=== PATIENT | male | born 1960 | race Caucasian/White ===

== ENCOUNTER 2019-06-02 14:09 | Emergency (ER) | payer MEDICARE, SELFPAY ==
[2019-06-02 14:16] VITALS: BP 142/99; PULSE 81; RESP 16; TEMP 36.7; O2SAT 96; BMI 45.0
--- NOTE | 2019-06-02 14:28 | ED_ITS ---
Entered by Raven Carrillo, acting as scribe for HPI - Abdominal Pain General: Chief Complaint: Abdominal Pain Stated Complaint: abd pain Time Seen by Provider: 06/02/19 14:25 Source: patient and family Mode of arrival: wheelchair Limitations: no limitations History of Present Illness: HPI narrative: 59 yo Male presents to ED with complaint of groin pain. Pt states that he has seen Dr. Luo and they found a nodule. Pt states that he has been checked for hernia and epididymitis. Pt states that he has been in herE 2 other times for this, 4 times altogether. Pt states that the pain is moderate. Pt states that he is on steroids right now. Pt's states that the patient's pain started on and since then the patient is having decreased urine output and discomfort during urination. MD elicited complaint: other (groin pain) Onset (ago): day(s) Pain Consistency: constant Location: Groin Pain scale (0-10): 10 Quality: sharp Radiation: none Migration to: no migration Exacerbating factors: movement Relieving factors: nothing Associated Symptoms: Reports no associated symptoms and dysuria; Denies chills, coffee ground emesis, constipation, GI cramping, diarrhea, fever(s), hematochezia, hematuria, hematemesis, melena, nausea, syncope and vomiting Review of Systems General: Reports: other (negative unless marked) Const: Denies: fever, chills, body aches, fatigue, malaise or diaphoresis Eyes: Denies: change in vision or blurry vision ENMT: Denies: throat pain, painful swallowing, hoarseness, ear pain, ear discharge, Change in hearing or nasal discharge Card: Denies: chest pain, palpitations, irregular heart rhythm, syncope, pre- syncope, shortness of breath on exertion or shortness of breath when lying down Resp: Denies: shortness of breath, productive cough, non-productive cough, wheezing, coughing up blood or chest congestion GI: Denies: abdominal pain, nausea, vomiting, vomiting blood, coffee grounds in vomit, diarrhea, constipation, cramping, blood in stool or black tarry stool : Reports: difficulty urinating, painful urination, urinary frequency, urinary urgency and testicular pain; Denies: flank pain, decreased urine ouput, urinary incontinence or blood in urine Musc: Denies: neck pain, back pain, extremity pain, extremity swelling, joint pain, joint swelling, joint warmth or joint stiffness Skin/Breast: Denies: rash, skin tenderness or yellow skin Neuro: Denies: headache, numbness in extremities, weakness in extremities, changes in sensation, lack of coordination, difficulty walking, dizziness, vertigo or confusion Endo: Denies: excessive thirst, tired all the time, cold intolerance, excessive sweating, flushing or hot flashes Chidi/Lymph: Denies: easy bruising, easy bleeding, petechiae or enlarged lymph nodes All/Imm: Denies: hives, throat swelling, tongue swelling, facial swelling or acute wheezing PFSH ED PFSH: Statuses (acute, chronic, etc) shown below reflect problem list status as previously entered and may not be historically accurate Medical History (Updated 06/02/19 @ 16:52 by Rachel Heredia) Attention-deficit hyperactivity disorder, combined type (Acute) Major depressive disorder, recurrent, in full remission (Acute) Narcissistic personality disorder (Acute) Post traumatic stress disorder (Acute) Social History Smoking and tobacco status: current some day smoker Physical Exam Const: COMMON NORMALS: no apparent distress, oriented x3, no limitations, healthy appearing and well nourished EXAM LIMITATIONS: no altered mental status GENERAL APPEARANCE: cooperative, well kempt and well developed ORIENTATION/CONSCIOUSNESS: Yes awake HENMT: COMMON NORMALS: normocephalic, head/scalp atraumatic, hearing grossly normal bilaterally, external ears normal, EAC's normal, external nose normal and moist oral mucous membranes HEAD & SCALP: normal to inspection, normocephalic and atraumatic FACE & SINUS: normal facial exam and face symmetric NOSE: external nose normal and nares normal EXTERNAL EAR: Yes external ears normal EXTERNAL AUDITORY CANAL: EAC's normal MOUTH: oral and palatal mucosa normal and tongue normal Eye: COMMON NORMALS: PERRL, EOMs intact bilaterally, conjunctivae normal and no scleral icterus GENERAL EYE: normal appearance of both eyes and normal light reflex CONJUNCTIVA: Yes conjunctivae normal SCLERA: sclerae normal CORNEA: Yes corneas normal PUPIL: Yes PERRL DIRECT OPHTHALMOSCOPY: Yes normal light reflex Neck/C-Spine: COMMON NORMALS: full ROM, no lymphadenopathy, supple, no meningeal signs and no JVD GENERAL: Yes normal visual inspection and Yes trachea midline CERVICAL SPINE: Yes cervical ROM normal Chest: COMMONS NORMALS: inspection of chest normal and palpation of chest normal Resp: COMMON NORMALS: normal respiratory effort, no retractions, no use of accessory muscles and clear to auscultation bilaterally EFFORT & INSPECTION: Yes able to speak in complete sentences AUSCULTATION: clear to auscultation bilaterally Cardio: COMMON NORMALS: no JVD, regular rate, regular rhythm, S1 normal heart sound, S2 normal heart sound, no gallops, no clicks, no murmurs and no rub JUGULAR VENOUS DISTENTION: no JVD RATE: regular rate RHYTHM: regular rhythm HEART SOUNDS: S1 normal and S2 normal GI: COMMON NORMALS: soft to palpation, non-tender, no hepatosplenomegaly and no masses INSPECTION: Yes normal to inspection PALPATION: Yes soft and Yes no hepatosplenomegaly : COMMON NORMALS: Yes no CVA tenderness BLADDER/KIDNEY EXAM: Yes no CVA tenderness TESTES: Yes testicular lie normal, Yes testicular tenderness Testicular tenderness laterality: right and Yes epididymal tenderness (Rt.) Back/Pelvis: COMMON NORMALS: no CVA tenderness, thoracic and lumbar spine normal to inspection, no thoracic nor lumbar tenderness and thoraco-lumbar ROM normal Extremity: COMMON NORMALS: normal to inspection, full ROM, normal capillary refill, no joint enlargement, no clubbing, cyanosis or edema and no calf tenderness Neuro: COMMON NORMALS: oriented x3, CN's II-XII intact bilaterally, moves all extremities, no focal motor deficits and no sensory deficits noted MENINGEAL SIGNS: Yes no meningeal signs Psych: COMMON NORMALS: mental status grossly normal, thought process normal, cooperative, affect normal, speech normal and activity/motor behavior normal APPEARANCE: Yes well kempt SPEECH: Yes normal speech THOUGHT PROCESS: normal thought process Skin: COMMON NORMALS: no rashes or lesions noted, skin turgor normal, no jaundice, no petechiae and no mottling GENERAL SKIN EXAM: no rashes or lesions noted and turgor normal Course Vital Signs: Vital signs: Vital Signs Temperature 98.0 F 06/02/19 14:16 Pulse Rate 85 06/02/19 17:12 Respiratory Rate 20 H 06/02/19 17:12 Blood Pressure 140/71 06/02/19 16:21 Pulse Oximetry 95 06/02/19 17:12 MDM - Abdominal Pain MDM Narrative: Medical decision making narrative: Mr. Kapoor is a 59-year-old male who comes in complaining of right testicular/groin plane. There is no sign of hernia. His pain is over his right epididymis. Ultrasound shows no evidence of testicular torsion or epididymitis but clinically the patient has this. He has pain on that area he has decreased pain with elevation of his scrotum. Ultrasound shows no signs of hydronephrosis or anything to suggest a kidney stone. I have recommended and offered to perform a CT scan to evaluate for appendicitis and better evaluate for kidney stone but the patient refuses. He says that overall he is feeling better and he would like to be discharged. He states he has had this exact same pain is been evaluated for times before and has always been epididymitis. Patient states that he thinks he just got here earlier than normal because ultrasound normally picks this up. I have reviewed his last case here and he did indeed have epididymitis. The patient agrees to return should his symptoms change or worsen but at this time he is feeling better and wants to be discharged. Lab Data: Labs: Lab Results 06/02/19 06/02/19 06/02/19 Range/Units 14:53 14:53 15:00 WBC 10.5 H (4.0-10.0) 10^3/ uL RBC 5.10 (4.1-5.3) 10^6/u L Hgb 14.3 (11.7-16.6) g/dL Hct 44.5 (42.0-52.0) % MCV 87.3 (80-94) fL MCH 28.0 (28.0-34.0) pg MCHC 32.1 (30.0-36.0) g/dL RDW 15.5 H (12.1-15.1) % Plt Count 162 (130-400) 10^3/c mm MPV 11.0 H (7.4-10.4) fL Neut % (Auto) 86.1 % Lymph % (Auto) 8.8 % [place] % (Auto) 3.6 % Eos % (Auto) 0.5 % Baso % (Auto) 0.3 % Neut # (Auto) 9.0 H (1.8-7.7) 10^3/u L Lymph # (Auto) 0.9 (0.8-4.8) 10^3/u L [place] # (Auto) 0.4 (0.2-0.9) 10^3/u L Eos # (Auto) 0.1 (0.0-0.8) 10^3/u L Baso # (Auto) 0.0 (0.0-0.1) 10^3/u L Nucleated RBC % (a uto) 0 % Nucleated RBCs # 0.0 /100WBC Sodium 138 (136-145) mmol/L Potassium 4.7 (3.5-5.1) mmol/L Chloride 99 (98-107) mmol/L Carbon Dioxide 26 (22-29) mmol/L Anion Gap 17.7 (5-19) BUN 35 H (6-20) mg/dL Creatinine 1.3 H (0.7-1.2) mg/dL GFR Calculation 56.5 L (90-130) mL/min Glucose 210 H (65-115) mg/dL Calcium 9.7 (8.5-10.5) mg/dL Total Bilirubin 0.3 (0.15-1.2) mg/dL AST 19 (0-40) U/L ALT 30 (0-41) U/L Alkaline Phosphata se 63 (40-130) IU/L Total Protein 6.2 L (6.6-8.7) g/dL Albumin 3.5 (3.5-5.2) g/dL Globulin 2.7 (1.3-4.6) g/dL Lipase 31 (13-60) U/L Urine Color Yellow (Yellow) Urine Appearance Clear (CLEAR) Urine pH 5 (5-7) Ur Specific Gravit y 1.015 (1.005-1.030) Urine Protein Neg (Negative) Urine Glucose (UA) Norm (Normal) Urine Ketones Negative (Negative) Urine Occult Blood Neg (Negative) Urine Nitrate Negative (Negative) Urine Bilirubin Neg (NEGATIVE) Urine Urobilinogen Norm (Negative) mg/dL Ur Leukocyte Loly ase Negative (Negative) Urine RBC 0-4 H (0-2) /hpf Urine WBC 0-4 H (0-5) /hpf Ur Squamous Epith Cells 0-4 H (0-5) Urine Bacteria 1+ H (NONE) Imaging Data ^: US Scrotum: Radiologist's impression: [place] [id number] Ultrasound Report Signed Patient: Robert Kapoor #: [id number] : 1960Acct#:[id number] Age/Sex: 59 / MADM Date: 06/02/19 Loc: ERRoom/Bed: Attending Dr: Ordering Provider/Ordering MD: Rachel Heredia DO Date of Service: 06/02/19 Procedure(s): US scrotum [id number] Accession Number(s): [id number] Report Number: [id number] PROCEDURE INFORMATION: Exam: US Scrotum Exam date and time: 06/02/2019 3:33 PM Age: 59 years old Clinical indication: Pain; Other: Right inguinal area TECHNIQUE: Imaging protocol: Real-time ultrasound of the scrotum and contents with color Doppler and image documentation. COMPARISON: US Testicular [id number] 12/28/2018 2:33 PM FINDINGS: Right testicle: Normal. No mass. No torsion. Normal vascular flow. Right testicle measures 4.2 cm x 2 cm x 2.5 cm Left testicle: Normal. No mass. No torsion. Normal vascular flow. Left testicle measures 3.8 cm x 2 cm x 2.7 cm. Epididymides: Normal. Right 9 mm left 8.8 mm Scrotum: Left scrotal wall 4.7 mm. Right scrotal wall 6.4 mm. Comparison to prior examination similar findings is seen. There is a Small left hydrocele Right inguinal region does not show specific abnormalities. US/US scrotum [id number] IMPRESSION: 1. Negative for intrinsic testicular abnormality. 2. Negative bilateral epididymis 3. Small volume hydrocele left side 4. Thick scrotal skin right side. 5. Right inguinal region area negative for mass or fluid collection Dictated By:Kareem Magana Signed By:Matt Magana Date/Time:06/02/19 1610 DD/ 1609 US Renal: Radiologist's impression: [address] [id number] Ultrasound Report Signed Patient: Robert Kapoor #: [id number] : 1960Acct#:[id number] Age/Sex: 59 / MADM Date: 06/02/19 Loc: ERRoom/Bed: Attending Dr: Ordering Provider/Ordering MD: Rachel Heredia DO Date of Service: 06/02/19 Procedure(s): US renal BI with bladder Accession Number(s): [id number] Report Number: [id number] PROCEDURE INFORMATION: Exam: US Retroperitoneal Complete. Exam date and time: 06/02/2019 3:19 PM Age: 59 years old Clinical indication: Pain; Other: Right inguinal area; Additional info: RT inguinal pain TECHNIQUE: Imaging protocol: Real-time ultrasound of the retroperitoneum with image documentation. Complete exam. COMPARISON: US Renal Kidney Structu* [id number] 11/01/2018 8:11 AM FINDINGS: Right kidney: Suboptimally visualized. 11.8 cm in length. No stones. No hydronephrosis. Left kidney: 12.9 cm in length. No stones. No hydronephrosis. Aorta: Suboptimally visualized. US/US renal BI with bladder IMPRESSION: No acute sonographic findings. Dictated By:Naldo Raman MD Signed By:Naldo Raman MDSigned Date/Time:06/02/19 163 DD/ 1632 Discharge Plan Discharge Patient Disposition: Home, Self-Care Clinical Impression: Testicular pain, right Condition: Stable Prescriptions: [place] 5-325 mg tablet 1 tab PO Q6H PRN (Reason: pain) 5 Days Qty: 4 RF: 0 Cipro 500 mg tablet 500 mg PO BID Qty: 20 RF: 0 No Action ropinirole 1 mg tablet 1 mg PO .QHS RF: 0 propranolol 20 mg tablet 20 mg PO TID RF: 0 methylphenidate HCl [Ritalin] 20 mg tablet 20 mg PO TID RF: 0 hydrochlorothiazide 25 mg tablet 25 mg PO QAM RF: 0 aspirin 325 mg tablet 325 mg PO ONCE PRN (Reason: fever or pain) RF: 0 losartan 50 mg tablet 50 mg PO ONCE RF: 0 oxycodone 30 mg tablet 30 mg PO ONCE PRNRF: 0 Discharge Orders: Discharge Order (Routine); Ordered 06/02/19 Ordered By: Rachel Heredia Referrals: [facility] [Other] Jg Martinez MD [Primary Care Provider] - Phu Walsh MD [Physician] - 1-3 days Discharge Diet: Advance as tolerated Discharge Activity: Increase activity as tolerated Patient Instructions: Epididymitis (ED), Acute Abdominal Pain (ED) Activity Restrictions/Additional Instructions: Please return to the ER immediately for any of the signs or symptoms listed on your discharge instruction sheets, worsening/changing of your symptoms, you are not getting better as quickly as expected, or for ANY other cause or concerns. I have offered a CT scan to definitively rule out appendicitis but you have declined. If your symptoms worsen or change in any way or you simply change your mind you are more than welcome to return to the ER for recheck and further evaluation and care. Discharge Date/Time: 06/02/19 17:04 Coding Level of Care Code ED Gelatin Maker Utility for Chg Fwd Exam Problem Focused The documentation recorded by the Lorena sears Carmen, accurately reflects the service I personally performed and the decisions made by me, Rachel Heredia Jun 02, 2019 14:09
--- NOTE | 2019-06-02 14:32 | USR_ITS ---
PROCEDURE INFORMATION: Exam: US Scrotum Exam date and time: 06/02/2019 3:33 PM Age: 59 years old Clinical indication: Pain; Other: Right inguinal area TECHNIQUE: Imaging protocol: Real-time ultrasound of the scrotum and contents with color Doppler and image documentation. COMPARISON: US Testicular [id number] 12/28/2018 2:33 PM FINDINGS: Right testicle: Normal. No mass. No torsion. Normal vascular flow. Right testicle measures 4.2 cm x 2 cm x 2.5 cm Left testicle: Normal. No mass. No torsion. Normal vascular flow. Left testicle measures 3.8 cm x 2 cm x 2.7 cm. Epididymides: Normal. Right 9 mm left 8.8 mm Scrotum: Left scrotal wall 4.7 mm. Right scrotal wall 6.4 mm. Comparison to prior examination similar findings is seen. There is a Small left hydrocele Right inguinal region does not show specific abnormalities. US/US scrotum [id number] IMPRESSION: 1. Negative for intrinsic testicular abnormality. 2. Negative bilateral epididymis 3. Small volume hydrocele left side 4. Thick scrotal skin right side. 5. Right inguinal region area negative for mass or fluid collection
--- NOTE | 2019-06-02 14:32 | USR_ITS ---
PROCEDURE INFORMATION: Exam: US Retroperitoneal Complete. Exam date and time: 06/02/2019 3:19 PM Age: 59 years old Clinical indication: Pain; Other: Right inguinal area; Additional info: RT inguinal pain TECHNIQUE: Imaging protocol: Real-time ultrasound of the retroperitoneum with image documentation. Complete exam. COMPARISON: US Renal Kidney Structu* [id number] 11/01/2018 8:11 AM FINDINGS: Right kidney: Suboptimally visualized. 11.8 cm in length. No stones. No hydronephrosis. Left kidney: 12.9 cm in length. No stones. No hydronephrosis. Aorta: Suboptimally visualized. US/US renal BI with bladder IMPRESSION: No acute sonographic findings.
[2019-06-02] MEDS: ondansetron 2 mg/ML SDV 2 mL 4 MG IVP (14:56)
[2019-06-02] MEDS: sodium chloride 0.9% 1,000 ML 100 ML IV (14:57)
[2019-06-02 15:12] LABS: Basophils % 0.3 %; Eosinophils # 0.1 10^3/uL (0.0-0.8); Eosinophils % 0.5 %; Hematocrit 44.5 % (42.0-52.0); Hemoglobin 14.3 g/dL (11.7-16.6); Lymphocytes # 0.9 10^3/uL (0.8-4.8); Lymphocytes % 8.8 %; Mean Corpuscular HGB Conc 32.1 g/dL (30.0-36.0); Mean Corpuscular Volume 87.3 fL (80-94); Monocytes # 0.4 10^3/uL (0.2-0.9); Monocytes % 3.6 %; Neutrophils % 86.1 %; Nucleated Red Blood Cells % 0 %; Platelet Count 162 10^3/cmm (130-400); Red Cell Distribution Width 15.5 % (12.1-15.1); White Blood Count 10.5 10^3/uL (4.0-10.0)
[2019-06-02 15:32] LABS: Alanine Aminotransferase 30 U/L (0-41); Albumin Level 3.5 g/dL (3.5-5.2); Alkaline Phosphatase 63 IU/L (40-130); Anion Gap 17.7 (5-19); Aspartate Amino Transferase 19 U/L (0-40); Blood Urea Nitrogen 35 mg/dL (6-20); Calcium 9.7 mg/dL (8.5-10.5); Carbon Dioxide 26 mmol/L (22-29); Chloride 99 mmol/L (98-107); Creatinine Clr Calc Pharmacy 103.1639; Globulin 2.7 g/dL (1.3-4.6); Glomerular Filtration Rate 56.5 mL/min (90-130); Glucose 210 mg/dL (65-115); Lipase 31 U/L (13-60); Potassium 4.7 mmol/L (3.5-5.1); Sodium 138 mmol/L (136-145); Total Bilirubin 0.3 mg/dL (0.15-1.2); Total Protein 6.2 g/dL (6.6-8.7)
[2019-06-02 15:36] LABS: Bilirubin Urine Neg (NEGATIVE); Blood Urine Neg (Negative); Glucose Urine UA Norm (Normal); Ketones Urine Negative (Negative); Leukocyte Esterase Urine Negative (Negative); Nitrate Urine Negative (Negative); Protein Urine Neg (Negative); Specific Gravity, Urine 1.015 (1.005-1.030); Urine Appearance Clear (CLEAR); Urine Color Yellow (Yellow); Urobilinogen Urine Norm (Negative); pH Urine 5 (5-7)
[2019-06-02 15:38] LABS: Add Urine Culture? No; Bacteria Urine 1+; RBC Urine 0-4 /hpf (0-2); Squamous Epithelial Cell Urine 0-4 (0-5); WBC Urine 0-4 /hpf (0-5)
[2019-06-02 16:21] VITALS: BP 140/71; PULSE 72; RESP 18; O2SAT 97
[2019-06-02 17:12] VITALS: PULSE 85; RESP 20; O2SAT 95
--- NOTE | 2019-06-05 11:10 | DCPLANNER ---
government affairs manager had message to schedule a follow up appointment for patient with Dr. Walsh. government affairs manager called the office of Dr. Walsh, spoke with Claire, gave clinic patients information. government affairs manager was told that patients information would be printed and given to Zari for review. Clinic will call patient with appointment information.
--- NOTE | 2019-06-08 15:10 | DCPLANNER ---
Patient has a follow up appointment scheduled for Saturday, June 29, 2019 at 10:[address] Walsh. Clinic will call patient with appointment information.
--- NOTE | 2019-07-04 14:00 | DCPLANNER ---
Patient did attend appointment scheduled for 06.29.[address] Walsh.
== END 2019-06-02 17:04 | disposition home or self-care (01) ==
PROVIDERS: Emergency Provider Emergency Medicine; PCP Family Medicine
DX: N50.811 Right testicular pain (principal); Z79.82 Long term (current) use of aspirin; F17.210 Nicotine dependence, cigarettes, uncomplicated
CPT/HCPCS: 36415; 76770; 76857; 76870; 80053; 81001; 83690; 85025; 96361; 96374; 96375; 99282; 99283; J2405; J7030

== ENCOUNTER 2019-06-04 14:14 | Emergency (ER) | payer MEDICARE, SELFPAY ==
[2019-06-04 14:35] VITALS: BP 211/104; PULSE 85; RESP 24; TEMP 36.9; O2SAT 96; BMI 46.0
[2019-06-04 15:45] LABS: Basophils % 0.4 %; Eosinophils # 0.1 10^3/uL (0.0-0.8); Eosinophils % 0.7 %; Hematocrit 46.4 % (42.0-52.0); Hemoglobin 14.3 g/dL (11.7-16.6); Lymphocytes # 0.9 10^3/uL (0.8-4.8); Lymphocytes % 9.6 %; Mean Corpuscular HGB Conc 30.8 g/dL (30.0-36.0); Mean Corpuscular Hemoglobin 28.3 pg (28.0-34.0); Mean Corpuscular Volume 91.7 fL (80-94); Mean Platelet Volume 10.2 fL (7.4-10.4); Monocytes # 0.5 10^3/uL (0.2-0.9); Monocytes % 5.2 %; Neutrophils # 8.1 10^3/uL (1.8-7.7); Neutrophils % 83.1 %; Nucleated Red Blood Cells % 0 %; Platelet Count 150 10^3/cmm (130-400); Red Blood Count 5.06 10^6/uL (4.1-5.3); Red Cell Distribution Width 15.6 % (12.1-15.1); White Blood Count 9.7 10^3/uL (4.0-10.0)
[2019-06-04 15:52] LABS: Add Urine Microscopic? NO
[2019-06-04 16:05] LABS: Alanine Aminotransferase 33 U/L (0-41); Albumin Level 3.6 g/dL (3.5-5.2); Alkaline Phosphatase 57 IU/L (40-130); Anion Gap 17.1 (5-19); Aspartate Amino Transferase 19 U/L (0-40); Blood Urea Nitrogen 27 mg/dL (6-20); Calcium 9.9 mg/dL (8.5-10.5); Carbon Dioxide 27 mmol/L (22-29); Chloride 101 mmol/L (98-107); Creatinine Clr Calc Pharmacy 104.4201; Globulin 2.7 g/dL (1.3-4.6); Glomerular Filtration Rate 56.5 mL/min (90-130); Glucose 219 mg/dL (65-115); Lipase 16 U/L (13-60); Potassium 5.1 mmol/L (3.5-5.1); Sodium 140 mmol/L (136-145); Total Bilirubin 0.2 mg/dL (0.15-1.2); Total Protein 6.3 g/dL (6.6-8.7)
[2019-06-04 16:23] LABS: Bilirubin Urine Neg (NEGATIVE); Blood Urine Neg (Negative); Glucose Urine UA Norm (Normal); Ketones Urine Negative (Negative); Leukocyte Esterase Urine Negative (Negative); Nitrate Urine Negative (Negative); Protein Urine Neg (Negative); Specific Gravity, Urine 1.025 (1.005-1.030); Urine Appearance Clear (CLEAR); Urine Color Yellow (Yellow); Urobilinogen Urine Norm (Negative); pH Urine 5 (5-7)
[2019-06-04 20:11] VITALS: O2SAT 96
--- NOTE | 2019-06-04 21:02 | ED_ITS ---
Documented by User: PRAVIN Singleton 06/05/19 01:40 HPI - Abdominal Pain General: Chief Complaint: Abdominal Pain Stated Complaint: LOWER RIGHT ABD PAIN Time Seen by Provider: 06/04/19 20:10 History of Present Illness: HPI narrative: Patient presents to the ED with testicular pain. He was seen here on Tuesday for the same complaint. He was treated for epididymitis and was put on antibiotic and Given hydrocodone for pain. He started taking antibiotic on Tuesday and had a he still has pain. He states he's taken his antibiotic in the hydrocodone daily. Denies fever, chills, chest pain, shortness of breath, abdominal pain, nausea, vomiting, diarrhea, dysuria, hematuria. He also denies any impotence or blood in the ejaculatory fluid. Review of Systems General: Reports: 10 or more systems reviewed and unremarkable except in HPI and below PFSH ED PFSH: Statuses (acute, chronic, etc) shown below reflect problem list status as previously entered and may not be historically accurate Medical History Attention-deficit hyperactivity disorder, combined type Major depressive disorder, recurrent, in full remission Narcissistic personality disorder Post traumatic stress disorder Social History Smoking and tobacco status: former smoker Physical Exam Narrative: EXAM NARRATIVE: Patient is a 59-year-old male comes into the ED with testicular pain. Patient appears uncomfortable and has episodes of intense pain. No signs of respiratory distress. Const: COMMON NORMALS: oriented x3 HENMT: COMMON NORMALS: normocephalic HEAD & SCALP: normocephalic MOUTH: oral and palatal mucosa normal THROAT: posterior oropharynx normal and uvula midline Neck/C-Spine: COMMON NORMALS: supple GENERAL: Yes normal visual inspection Resp: COMMON NORMALS: normal respiratory effort, no retractions, no use of accessory muscles and clear to auscultation bilaterally AUSCULTATION: clear to auscultation bilaterally Cardio: COMMON NORMALS: regular rate, regular rhythm, S1 normal heart sound, S2 normal heart sound, no gallops, no clicks, no murmurs and peripheral pulses 2+ throughout RATE: regular rate RHYTHM: regular rhythm HEART SOUNDS: S1 normal and S2 normal PERIPHERAL PULSES: pulses 2+ throughout GI: COMMON NORMALS: normal to inspection, nondistended, normoactive bowel sounds, soft to palpation, non-tender and no masses PALPATION: Yes soft : COMMON NORMALS: Yes no CVA tenderness BLADDER/KIDNEY EXAM: Yes no CVA tenderness Back/Pelvis: COMMON NORMALS: no CVA tenderness Extremity: GENERAL: 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 Labs: Lab Results 06/04/19 06/04/19 06/04/19 Range/Units 15:27 15:27 15:40 WBC 9.7 (4.0-10.0) 10^3/ uL RBC 5.06 (4.1-5.3) 10^6/u L Hgb 14.3 (11.7-16.6) g/dL Hct 46.4 (42.0-52.0) % MCV 91.7 (80-94) fL MCH 28.3 (28.0-34.0) pg MCHC 30.8 (30.0-36.0) g/dL RDW 15.6 H (12.1-15.1) % Plt Count 150 (130-400) 10^3/c mm MPV 10.2 (7.4-10.4) fL Neut % (Auto) 83.1 % Lymph % (Auto) 9.6 % [place] % (Auto) 5.2 % Eos % (Auto) 0.7 % Baso % (Auto) 0.4 % Neut # (Auto) 8.1 H (1.8-7.7) 10^3/u L Lymph # (Auto) 0.9 (0.8-4.8) 10^3/u L [place] # (Auto) 0.5 (0.2-0.9) 10^3/u L Eos # (Auto) 0.1 (0.0-0.8) 10^3/u L Baso # (Auto) 0.0 (0.0-0.1) 10^3/u L Nucleated RBC % (a uto) 0 % Nucleated RBCs # 0.0 /100WBC Sodium 140 (136-145) mmol/L Potassium 5.1 (3.5-5.1) mmol/L Chloride 101 (98-107) mmol/L Carbon Dioxide 27 (22-29) mmol/L Anion Gap 17.1 (5-19) BUN 27 H (6-20) mg/dL Creatinine 1.3 H (0.7-1.2) mg/dL GFR Calculation 56.5 L (90-130) mL/min Glucose 219 H (65-115) mg/dL Calcium 9.9 (8.5-10.5) mg/dL Total Bilirubin 0.2 (0.15-1.2) mg/dL AST 19 (0-40) U/L ALT 33 (0-41) U/L Alkaline Phosphata se 57 (40-130) IU/L Total Protein 6.3 L (6.6-8.7) g/dL Albumin 3.6 (3.5-5.2) g/dL Globulin 2.7 (1.3-4.6) g/dL Lipase 16 (13-60) U/L Urine Color Yellow (Yellow) Urine Appearance Clear (CLEAR) Urine pH 5 (5-7) Ur Specific Gravit y 1.025 (1.005-1.030) Urine Protein Neg (Negative) Urine Glucose (UA) Norm (Normal) Urine Ketones Negative (Negative) Urine Occult Blood Neg (Negative) Urine Nitrate Negative (Negative) Urine Bilirubin Neg (NEGATIVE) Urine Urobilinogen Norm (Negative) mg/dL Ur Leukocyte Loly ase Negative (Negative) Imaging Data ^: US: Attestation: I personally reviewed and interpreted this imaging study as foll ows: My impression: I reviewed the preliminary report and talked with the production technician. Pending final radiologist report. Radiologist's impression: Prelim ultrasound report showed epididymitis. Discharge Plan Discharge Patient Disposition: Home, Self-Care Clinical Impression: Epididymitis Condition: Stable Prescriptions: No Action ropinirole 1 mg tablet 1 mg PO .QHS RF: 0 propranolol 20 mg tablet 20 mg PO TID RF: 0 methylphenidate HCl [Ritalin] 20 mg tablet 20 mg PO TID RF: 0 hydrochlorothiazide 25 mg tablet 25 mg PO QAM RF: 0 aspirin 325 mg tablet 325 mg PO ONCE PRN (Reason: fever or pain) RF: 0 losartan 50 mg tablet 50 mg PO ONCE RF: 0 oxycodone 30 mg tablet 30 mg PO ONCE PRNRF: 0 Cipro 500 mg tablet 500 mg PO BID Qty: 20 RF: 0 Discharge Orders: Discharge Order (Routine); Ordered 06/04/19 Ordered By: Kevin Monsalve Referrals: [facility] [Other] Jg Martinez MD [Primary Care Provider] - Discharge Diet: Regular Discharge Activity: Resume usual activity Patient Instructions: Epididymitis (ED) Activity Restrictions/Additional Instructions: Continue taking previously prescribed ciprofloxacin. Take Motrin or Aleve for the pain. Drink plenty of fluids stay hydrated. I am putting referral in to urology for you. The [facility] urology office should be contacting you in the next several days to schedule an appointment. Lie down and elevate scrotum. Apply cold packs to scrotum area as tolerated to help with pain. Wear athletic supporter. 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[employer] Documented by User: Rachel Heredia 06/09/19 18:47 HPI - Abdominal Pain General: Chief Complaint: Abdominal Pain Stated Complaint: LOWER RIGHT ABD PAIN Time Seen by Provider: 06/04/19 20:10 PFSH ED PFSH: Statuses (acute, chronic, etc) shown below reflect problem list status as previously entered and may not be historically accurate Medical History Attention-deficit hyperactivity disorder, combined type Major depressive disorder, recurrent, in full remission Narcissistic personality disorder Post traumatic stress disorder Social History Smoking and tobacco status: former smoker Course Vital Signs: Vital signs: Vital Signs Temperature 99.1 F 06/04/19 22:57 Pulse Rate 73 06/04/19 22:57 Respiratory Rate 24 H 06/04/19 14:35 Blood Pressure 142/102 06/04/19 22:57 Pulse Oximetry 95 06/04/19 22:57 MDM - Abdominal Pain Lab Data: Labs: Lab Results 06/04/19 06/04/19 06/04/19 Range/Units 15:27 15:27 15:40 WBC 9.7 (4.0-10.0) 10^3/ uL RBC 5.06 (4.1-5.3) 10^6/u L Hgb 14.3 (11.7-16.6) g/dL Hct 46.4 (42.0-52.0) % MCV 91.7 (80-94) fL MCH 28.3 (28.0-34.0) pg MCHC 30.8 (30.0-36.0) g/dL RDW 15.6 H (12.1-15.1) % Plt Count 150 (130-400) 10^3/c mm MPV 10.2 (7.4-10.4) fL Neut % (Auto) 83.1 % Lymph % (Auto) 9.6 % [place] % (Auto) 5.2 % Eos % (Auto) 0.7 % Baso % (Auto) 0.4 % Neut # (Auto) 8.1 H (1.8-7.7) 10^3/u L Lymph # (Auto) 0.9 (0.8-4.8) 10^3/u L [place] # (Auto) 0.5 (0.2-0.9) 10^3/u L Eos # (Auto) 0.1 (0.0-0.8) 10^3/u L Baso # (Auto) 0.0 (0.0-0.1) 10^3/u L Nucleated RBC % (a uto) 0 % Nucleated RBCs # 0.0 /100WBC Sodium 140 (136-145) mmol/L Potassium 5.1 (3.5-5.1) mmol/L Chloride 101 (98-107) mmol/L Carbon Dioxide 27 (22-29) mmol/L Anion Gap 17.1 (5-19) BUN 27 H (6-20) mg/dL Creatinine 1.3 H (0.7-1.2) mg/dL GFR Calculation 56.5 L (90-130) mL/min Glucose 219 H (65-115) mg/dL Calcium 9.9 (8.5-10.5) mg/dL Total Bilirubin 0.2 (0.15-1.2) mg/dL AST 19 (0-40) U/L ALT 33 (0-41) U/L Alkaline Phosphata se 57 (40-130) IU/L Total Protein 6.3 L (6.6-8.7) g/dL Albumin 3.6 (3.5-5.2) g/dL Globulin 2.7 (1.3-4.6) g/dL Lipase 16 (13-60) U/L Urine Color Yellow (Yellow) Urine Appearance Clear (CLEAR) Urine pH 5 (5-7) Ur Specific Gravit y 1.025 (1.005-1.030) Urine Protein Neg (Negative) Urine Glucose (UA) Norm (Normal) Urine Ketones Negative (Negative) Urine Occult Blood Neg (Negative) Urine Nitrate Negative (Negative) Urine Bilirubin Neg (NEGATIVE) Urine Urobilinogen Norm (Negative) mg/dL Ur Leukocyte Loly ase Negative (Negative) Discharge Plan Discharge Patient Disposition: Home, Self-Care Clinical Impression: Epididymitis Condition: Stable Prescriptions: No Action ropinirole 1 mg tablet 1 mg PO .QHS RF: 0 propranolol 20 mg tablet 20 mg PO TID RF: 0 methylphenidate HCl [Ritalin] 20 mg tablet 20 mg PO TID RF: 0 hydrochlorothiazide 25 mg tablet 25 mg PO QAM RF: 0 aspirin 325 mg tablet 325 mg PO ONCE PRN (Reason: fever or pain) RF: 0 losartan 50 mg tablet 50 mg PO ONCE RF: 0 oxycodone 30 mg tablet 30 mg PO ONCE PRNRF: 0 Cipro 500 mg tablet 500 mg PO BID Qty: 20 RF: 0 Discharge Orders: Discharge Order (Routine); Ordered 06/04/19 Ordered By: Kevin Monsalve Referrals: [facility] [Other] Jg Martinez MD [Primary Care Provider] - Discharge Diet: Regular Discharge Activity: Resume usual activity Patient Instructions: Epididymitis (ED) Activity Restrictions/Additional Instructions: Continue taking previously prescribed ciprofloxacin. Take Motrin or Aleve for the pain. Drink plenty of fluids stay hydrated. I am putting referral in to urology for you. The [facility] urology office should be contacting you in the next several days to schedule an appointment. Lie down and elevate scrotum. Apply cold packs to scrotum area as tolerated to help with pain. Wear athletic supporter. 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
--- NOTE | 2019-06-04 21:09 | US_ITS ---
WS: [id number] Scrotal and testicular ultrasound, 06/04/2019 Clinical Data: testicular pain Comparison: Testicular and scrotal ultrasound, 06/02/2019 Findings: The right testes measures 3.4 cm x 2.56 cm x 2.51 cm. The right epididymis is now enlarged and shows increased flow. Its greatest dimension is 2.02 cm. The left testes measures 3.7 cm x 1.3cm x 2.52 cm. The left epididymis is normal. There is normal bilateral blood flow to the testes with no evidence of orchitis or torsion. No masses or abnormal calcifications are noted. US/US scrotum [id number] Impression: 1. Right epididymitis. 2. Negative bilateral testes.
[2019-06-04] MEDS: morphine 4 mg/mL SDV 1 mL IM (21:33)
--- NOTE | 2019-06-04 22:34 | PC.NURSE ---
portable ultrasound at bedside
[2019-06-04 22:57] VITALS: BP 142/102; PULSE 73; TEMP 37.3; O2SAT 95
--- NOTE | 2019-06-05 11:38 | DCPLANNER ---
strategic development manager had a message on patients visit on 06.02.19 for a referral to Dr. Drew office. Please refer to notes on patient visit on 06.02.19 on scheduled appointment.
== END 2019-06-04 23:26 | disposition home or self-care (01) ==
PROVIDERS: Nurse Practitioner Family; Emergency Provider Physician Assistant; PCP Family Medicine
DX: N45.1 Epididymitis (principal); Z79.82 Long term (current) use of aspirin; Z87.891 Personal history of nicotine dependence
CPT/HCPCS: 36415; 76870; 80053; 81003; 83690; 85025; 96372; 99282; 99283; J2270

== ENCOUNTER → 2019-06-28 12:38 | Outpatient (BNVA) | payer MEDICARE, SELFPAY | PROVIDERS: PCP Nurse Practitioner Family; Visit Provider Psychiatry & Neurology Psychiatry | DX: F33.42 Major depressive disorder, recurrent, in full remission (principal); F90.2 Attention-deficit hyperactivity disorder, combined type; F43.10 Post-traumatic stress disorder, unspecified; F60.81 Narcissistic personality disorder | CPT/HCPCS: 99212 ==

== ENCOUNTER 2019-08-01 11:17 | Outpatient (CLI) | payer MEDICARE, SELFPAY ==
--- NOTE | 2019-08-01 11:22 | XR_ITS ---
WS: [id number] RIGHT ELBOW: 3 VIEW(S) TECHNIQUE: AP, oblique and lateral. HISTORY: PAIN COMPARISON: 12/06/2018 No acute fractures or dislocation. Mild cortical irregularity over the lateral epicondyle. No significant joint effusion. There is extensive soft tissue edema and swelling over the posterior elbow. Soft tissue edema and swe lling is greatest at the level of the olecranon but extends superior and inferior to the joint space. XR/XR elbow RT min 3V* [id number] IMPRESSION: 1. Large amount of soft tissue edema centered posterior to the elbow. Olecrano n bursitis should be considered. Infectious process and cellulitis also within the differential. Please note this soft tissue edema was also present on 019 and 12/20/2014. Therefore may not be acute. 2. Mild cortical irregularity involving the lateral epicondyle. May be posttra umatic. Similar to the prior study.
--- NOTE | 2019-08-01 11:22 | XR_ITS ---
WS: [id number] RIGHT KNEE: 3 VIEW(S) TECHNIQUE: AP, oblique(s) and lateral. HISTORY: PAIN COMPARISON: 08/06/2018 No fracture or dislocation. Mild tricompartment osteoarthritis. No joint effusion. No soft tissue abnormality. XR/XR knee RT 3V* [id number] IMPRESSION: Mild tricompartment osteoarthritis. Similar to 08/06/2018.
== END 2019-08-01 11:18 | disposition home or self-care (01) ==
LOC: RAD 11:21
PROVIDERS: PCP Nurse Practitioner Family; Visit Provider Nurse Practitioner Family
DX: M25.521 Pain in right elbow (principal); M25.561 Pain in right knee; M17.11 Unilateral primary osteoarthritis, right knee; R60.9 Edema, unspecified
CPT/HCPCS: 73080; 73562

== ENCOUNTER 2019-11-06 16:20 | Outpatient (CLI) | payer MEDICARE, SELFPAY ==
--- NOTE | 2019-11-06 | XRR_ITS ---
PROCEDURE INFORMATION: Exam: XR Right Elbow Exam date and time: 11/06/2019 4:58 PM Age: 59 years old Clinical indication: Pain; Elbow; Right; Additional info: Pain, old HX of fall TECHNIQUE: Imaging protocol: XR Right elbow. Views: 3 or more views. COMPARISON: CR XR elbow RT min 3V* [id number] 08/01/2019 11:30 AM FINDINGS: Bones/joints: No elbow joint effusion. The bone density is appropriate. No periosteal reaction. No osteomyelitis. No acute fracture or dislocation. No bony destructive changes. Soft tissues: There is abundant soft tissue edema along the dorsal forearm and olecranon process. No foreign body. No gas in the soft tissues. XR/XR elbow RT min 3V* [id number] IMPRESSION: 1. No acute bony abnormality. 2. There is abundant soft tissue edema along the dorsal forearm and olecranon process.
== END 2019-11-06 16:21 | disposition home or self-care (01) ==
PROVIDERS: Family Provider Nurse Practitioner Family; PCP Nurse Practitioner Family; Visit Provider Nurse Practitioner Family
DX: M25.521 Pain in right elbow (principal)
CPT/HCPCS: 73080

== ENCOUNTER → 2019-11-12 07:36 | Outpatient (BNVA) | payer MEDICARE, SELFPAY | PROVIDERS: Family Provider Nurse Practitioner Family; PCP Nurse Practitioner Family; Visit Provider Psychiatry & Neurology Psychiatry | DX: F90.2 Attention-deficit hyperactivity disorder, combined type (principal); F33.42 Major depressive disorder, recurrent, in full remission; F43.10 Post-traumatic stress disorder, unspecified; F60.81 Narcissistic personality disorder | CPT/HCPCS: 99212 ==

== ENCOUNTER 2019-11-23 13:58 | Outpatient (CLI) | payer MEDICARE, SELFPAY ==
--- NOTE | 2019-11-23 14:04 | XRR_ITS ---
PROCEDURE INFORMATION: Exam: XR Right Elbow Exam date and time: 11/23/2019 2:23 PM Age: 59 years old Clinical indication: Pain; Elbow; Right; Additional info: Right elbow pain TECHNIQUE: Imaging protocol: XR Right elbow. Views: 3 or more views. COMPARISON: CR XR elbow RT min 3V* [id number] 11/06/2019 4:50 PM FINDINGS: Bones/joints: There is no evidence for acute fracture or malalignment. Soft tissues: Normal. XR/XR elbow RT min 3V* [id number] IMPRESSION: No acute findings.
[2019-11-23 15:20] LABS: Testosterone Total 338.2 ng/dL (193-740)
[2019-11-28 16:35] LABS: Testosterone, Free 42.2 pg/mL (46.0-224.0)
== END 2019-11-23 13:59 | disposition home or self-care (01) ==
LOC: RAD 14:02
PROVIDERS: PCP Nurse Practitioner Family; Visit Provider Nurse Practitioner Family
DX: M25.521 Pain in right elbow (principal)
CPT/HCPCS: 36415; 73080; 84402; 84403

== ENCOUNTER 2019-11-26 13:55 | Inpatient (IN) | payer MEDICARE, SELFPAY ==
[2019-11-26] VITALS (9 sets, daily range): BP systolic 99–163; BP diastolic 54–101; PULSE 72–100; RESP 16–20; TEMP 36.8–37; O2SAT 92–98; BMI 51.7
--- NOTE | 2019-11-26 14:53 | ED_ITS ---
Documented by User: PRAVIN Barrett 11/26/19 17:01 HPI - Wound/Laceration General: Chief Complaint: Skin/Abscess/Foreign Body Stated Complaint: possible abscess right elbow Time Seen by Provider: 11/26/19 14:14 Source: patient and family Mode of arrival: ambulatory Limitations: no limitations History of Present Illness: HPI narrative: Patient is a 59-year-old male who presents to ED today with complaints of an infection to his right elbow. Patient tells me approximately 2 weeks ago he fell and landed onto the elbow. He had x-rays performed which showed no fracture but did note soft tissue swelling. Patient tells me following that he accidentally struck the elbow against a wall causing a small abrasion. He states after that he began noticing redness and worsening swelling. He was seen by his primary care provider which placed him on Keflex. He has been on this medication over the past 3 days and does not seem to be improving. He noticed today the area began draining. Patient states he does have a history of MRSA. No fevers/chills/body aches. States he does have a hx of chronic inflammatory demyelinating polyneuropathy and has been on steroids recently for this. Onset (ago): day(s) Extremity Location: Right: elbow Patient tetanus UTD: Yes Context: accidental Associated symptoms: Reports no associated symptoms; Denies chills or fever(s) Review of Systems Const: Denies: fever(s), chills or body aches Musc: Reports: joint pain, joint swelling, joint redness and limited range of motion [facility] PFSH: Medical History (Updated 11/26/19 @ 20:55 by Mike Acosta MD) Attention-deficit hyperactivity disorder, combined type Chronic epididymitis Chronic kidney disease, stage II (mild) CIDP (chronic inflammatory demyelinating polyneuropathy) Reports he takes dexamethasone intermittently when symptoms flare Epididymitis History of coronary angiogram Hyperglycemia Denies diabetes, but is on medication for this. Hypertension Major depressive disorder, recurrent, in full remission Morbid obesity Narcissistic personality disorder Obstructive sleep apnea Post traumatic stress disorder Prinzmetal's angina Right groin pain Testosterone deficiency Surgical History H/O carpal tunnel repair bilateral H/O sinus surgery deviated septum History of tonsillectomy History of total left knee replacement Status post bilateral below knee amputation Left side, reports secondary to fracture causing reduced blood supply Family History Mother , at age 85 No problems noted. Father , at age 75 Cancer skin, prostate Social History Smoking and tobacco status: former smoker Adopted: No Caregiver/support person: No Lives independently: No Household members: spouse Marital status: Current occupational status: disabled History of recent travel: No Current gender identity: Male Physical Exam Const: COMMON NORMALS: patient oriented x3 and alert NUTRITIONAL APPEARANCE: obese morbidly obese Extremity: GENERAL: Yes normal exam except as noted OTHER: R elbow with an infected olecranon bursa; there is purulent white drainage easily expressed from area-bursa was drained by gentle expression; pt cannot fully flex or extend el bow but does have good painless middle range motion; there is no diffuse joint redness/warmth; no streaking Neuro: COMMON NORMALS: patient oriented x3 SENSORIUM/ORIENTATION: Yes alert Skin: OTHER: see extremity assessment Course Vital Signs: Vital signs: Vital Signs Temperature 98.2 F 11/28/19 10:46 Pulse Rate 79 11/28/19 10:46 Respiratory Rate 18 11/28/19 17:41 Blood Pressure 126/73 11/28/19 08:53 Pulse Oximetry 97 11/28/19 10:46 MDM - Wound/Laceration MDM Narrative: Medical decision making narrative: Patient has been on Keflex and does not seem to be improving. He is a diabetic and states his sugars have been out of control due to his recent steroid use. Patient is not tachycardic or febrile. No leukocytosis. He does have an elevated CRP at 20.3. He was given IV vancomycin here. Spoke to Dr. Vuong about the probable need for admission. We will obtain CT imaging of his elbow to rule out joint involvement. Lab Data: Labs: Lab Results 11/26/19 11/26/19 11/26/19 Range/Units 15:00 15:00 15:00 WBC 8.1 (4.0-10.0) 10^3/ uL RBC 4.59 (4.1-5.3) 10^6/u L Hgb 12.8 (11.7-16.6) g/dL Hct 42.1 (42.0-52.0) % MCV 91.7 (80-94) fL MCH 27.9 L (28.0-34.0) pg MCHC 30.4 (30.0-36.0) g/dL RDW 17.6 H (12.1-15.1) % Plt Count 358 (130-400) 10^3/c mm MPV 9.4 (7.4-10.4) fL Neut % (Auto) 83.6 % Lymph % (Auto) 9.9 % [place] % (Auto) 2.7 % Eos % (Auto) 2.1 % Baso % (Auto) 1.0 % Neut # (Auto) 6.79 (1.8-7.7) 10^3/u L Lymph # (Auto) 0.8 (0.8-4.8) 10^3/u L [place] # (Auto) 0.2 (0.2-0.9) 10^3/u L Eos # (Auto) 0.2 (0.0-0.8) 10^3/u L Baso # (Auto) 0.1 (0.0-0.1) 10^3/u L Nucleated RBC % (a uto) 0 % Nucleated RBCs # 0.0 /100WBC Sodium 139 (136-145) mmol/L Potassium 4.8 (3.5-5.1) mmol/L Chloride 102 (98-107) mmol/L Carbon Dioxide 25 (22-29) mmol/L Anion Gap 16.8 (5-19) BUN 17 (6-20) mg/dL Creatinine 1.3 H (0.7-1.2) mg/dL GFR Calculation 56.5 L (90-130) mL/min Glucose 198 H (65-115) mg/dL POC Glucose (70-110) mg/dL Estimat Average Gl ucose 186 Hemoglobin A1c 8.1 H (4.0-6.0) % Calculated Osmolal ity 290 (285-295) mOsm/k g Calcium 9.8 (8.5-10.5) mg/dL Total Bilirubin 0.3 (0.15-1.2) mg/dL AST 31 (0-40) U/L ALT 30 (0-41) U/L Alkaline Phosphata se 66 (40-130) IU/L C-Reactive Protein 20.3 H (0.0-4.9) mg/L Total Protein 7.9 (6.6-8.7) g/dL Albumin 4.0 (3.5-5.2) g/dL Globulin 3.9 (1.3-4.6) g/dL TSH (0.27-4.20) uIU/ mL Vancomycin Trough (10-15) ug/mL 11/26/19 11/27/19 11/27/19 Range/Units 15:00 05:01 05:01 WBC 10.3 H (4.0-10.0) 10^3/ uL RBC 4.67 (4.1-5.3) 10^6/u L Hgb 12.8 (11.7-16.6) g/dL Hct 43.1 (42.0-52.0) % MCV 92.3 (80-94) fL MCH 27.4 L (28.0-34.0) pg MCHC 29.7 L (30.0-36.0) g/dL RDW 17.5 H (12.1-15.1) % Plt Count 411 H (130-400) 10^3/c mm MPV 9.3 (7.4-10.4) fL Neut % (Auto) 84.0 % Lymph % (Auto) 11.0 % [place] % (Auto) 3.9 % Eos % (Auto) 0.1 % Baso % (Auto) 0.3 % Neut # (Auto) 8.67 H (1.8-7.7) 10^3/u L Lymph # (Auto) 1.1 (0.8-4.8) 10^3/u L [place] # (Auto) 0.4 (0.2-0.9) 10^3/u L Eos # (Auto) 0.0 (0.0-0.8) 10^3/u L Baso # (Auto) 0.0 (0.0-0.1) 10^3/u L Nucleated RBC % (a uto) 0 % Nucleated RBCs # 0.0 /100WBC Sodium 140 (136-145) mmol/L Potassium 4.3 (3.5-5.1) mmol/L Chloride 103 (98-107) mmol/L Carbon Dioxide 24 (22-29) mmol/L Anion Gap 17.3 (5-19) BUN 23 H (6-20) mg/dL Creatinine 1.3 H (0.7-1.2) mg/dL GFR Calculation 56.5 L (90-130) mL/min Glucose 168 H (65-115) mg/dL POC Glucose (70-110) mg/dL Estimat Average Gl ucose Hemoglobin A1c (4.0-6.0) % Calculated Osmolal ity 291 (285-295) mOsm/k g Calcium 10.2 (8.5-10.5) mg/dL Total Bilirubin (0.15-1.2) mg/dL AST (0-40) U/L ALT (0-41) U/L Alkaline Phosphata se (40-130) IU/L C-Reactive Protein (0.0-4.9) mg/L Total Protein (6.6-8.7) g/dL Albumin (3.5-5.2) g/dL Globulin (1.3-4.6) g/dL TSH 0.45 (0.27-4.20) uIU/ mL Vancomycin Trough (10-15) ug/mL 11/27/19 11/27/19 11/27/19 Range/Units 06:16 10:27 14:55 WBC (4.0-10.0) 10^3/ uL RBC (4.1-5.3) 10^6/u L Hgb (11.7-16.6) g/dL Hct (42.0-52.0) % MCV (80-94) fL MCH (28.0-34.0) pg MCHC (30.0-36.0) g/dL RDW (12.1-15.1) % Plt Count (130-400) 10^3/c mm MPV (7.4-10.4) fL Neut % (Auto) % Lymph % (Auto) % [place] % (Auto) % Eos % (Auto) % Baso % (Auto) % Neut # (Auto) (1.8-7.7) 10^3/u L Lymph # (Auto) (0.8-4.8) 10^3/u L [place] # (Auto) (0.2-0.9) 10^3/u L Eos # (Auto) (0.0-0.8) 10^3/u L Baso # (Auto) (0.0-0.1) 10^3/u L Nucleated RBC % (a uto) % Nucleated RBCs # /100WBC Sodium (136-145) mmol/L Potassium (3.5-5.1) mmol/L Chloride (98-107) mmol/L Carbon Dioxide (22-29) mmol/L Anion Gap (5-19) BUN (6-20) mg/dL Creatinine (0.7-1.2) mg/dL GFR Calculation (90-130) mL/min Glucose (65-115) mg/dL POC Glucose 182 155 (70-110) mg/dL Estimat Average Gl ucose Hemoglobin A1c (4.0-6.0) % Calculated Osmolal ity (285-295) mOsm/k g Calcium (8.5-10.5) mg/dL Total Bilirubin (0.15-1.2) mg/dL AST (0-40) U/L ALT (0-41) U/L Alkaline Phosphata se (40-130) IU/L C-Reactive Protein (0.0-4.9) mg/L Total Protein (6.6-8.7) g/dL Albumin (3.5-5.2) g/dL Globulin (1.3-4.6) g/dL TSH (0.27-4.20) uIU/ mL Vancomycin Trough 10.3 (10-15) ug/mL Discharge Plan Discharge Patient Disposition: Admitted As Inpatient Admit Provider: Miek Acosta Clinical Impression: Septic olecranon bursitis of right elbow Condition: Stable Referrals: Rosi Flores MD [Hospitalist] - 12/04/19 1:00 pm ([phone] [facility]) Bj Casey NP [Primary Care Provider] - 12/05/19 2:00 pm Kamran Ling MD [Physician] - 12/04/19 10:30 am Discharge Diet: Diabetic Discharge Activity: Resume usual activity Patient Instructions: Bursitis - Elbow, Cephalexin (By mouth), Doxylamine (By mouth), Chlorhexidine (On the skin), Wound Healing and Your Diet (DC) Additional Instructions: Change dressing daily as instructed. Leave arm in sling. Change dressing daily, apply mupirocin with gloved hands or thoroughly washed hands (with soap) prior to application over suture line. Use hibiclens to wash right arm at bath time. Change dressing AFTER showering Discharge Date/Time: 11/26/19 21:16 Sign Out Sign Out Data: Patient Sign Out occurred on 11/26/19 at 18:25. Patient's care was discussed, and care was transferred from to Rachel Heredia. Coding Level of Care Code ED Padded Products Inspector Trimmer for Chg Fwd Exam Expanded Problem Focused Documented by User: Rachel Heredia 11/26/19 19:51 HPI - Wound/Laceration General: Chief Complaint: Skin/Abscess/Foreign Body Stated Complaint: possible abscess right elbow Time Seen by Provider: 11/26/19 14:14 [facility] PFSH: Medical History (Updated 11/26/19 @ 20:55 by Mike Acosta MD) Attention-deficit hyperactivity disorder, combined type Chronic epididymitis Chronic kidney disease, stage II (mild) CIDP (chronic inflammatory demyelinating polyneuropathy) Reports he takes dexamethasone intermittently when symptoms flare Epididymitis History of coronary angiogram Hyperglycemia Denies diabetes, but is on medication for this. Hypertension Major depressive disorder, recurrent, in full remission Morbid obesity Narcissistic personality disorder Obstructive sleep apnea Post traumatic stress disorder Prinzmetal's angina Right groin pain Testosterone deficiency Surgical History H/O carpal tunnel repair bilateral H/O sinus surgery deviated septum History of tonsillectomy History of total left knee replacement Status post bilateral below knee amputation Left side, reports secondary to fracture causing reduced blood supply Family History Mother , at age 85 No problems noted. Father , at age 75 Cancer skin, prostate Social History Smoking and tobacco status: former smoker Adopted: No Caregiver/support person: No Lives independently: No Household members: spouse Marital status: Current occupational status: disabled History of recent travel: No Current gender identity: Male Course Vital Signs: Vital signs: Vital Signs Temperature 98.2 F 11/28/19 10:46 Pulse Rate 79 11/28/19 10:46 Respiratory Rate 18 11/28/19 17:41 Blood Pressure 126/73 11/28/19 08:53 Pulse Oximetry 97 11/28/19 10:46 MDM - Wound/Laceration MDM Narrative: Medical decision making narrative: Patient care assumed by me at change of shift from Dr. Vuong. Please see his note along with Mandi Benoit's note for their history, physical exam and medical decision making. The patient has good range of motion of his joint. CT scan came back with no francheska dence of joint involvement but possible olecranon bursa synovial blood. Dr. Ling has been consulted and Dr. Moreira has been notified for admission. Further care will be dictated by them on an inpatient basis. Lab Data: Labs: Lab Results 11/26/19 11/26/19 11/26/19 Range/Units 15:00 15:00 15:00 WBC 8.1 (4.0-10.0) 10^3/ uL RBC 4.59 (4.1-5.3) 10^6/u L Hgb 12.8 (11.7-16.6) g/dL Hct 42.1 (42.0-52.0) % MCV 91.7 (80-94) fL MCH 27.9 L (28.0-34.0) pg MCHC 30.4 (30.0-36.0) g/dL RDW 17.6 H (12.1-15.1) % Plt Count 358 (130-400) 10^3/c mm MPV 9.4 (7.4-10.4) fL Neut % (Auto) 83.6 % Lymph % (Auto) 9.9 % [place] % (Auto) 2.7 % Eos % (Auto) 2.1 % Baso % (Auto) 1.0 % Neut # (Auto) 6.79 (1.8-7.7) 10^3/u L Lymph # (Auto) 0.8 (0.8-4.8) 10^3/u L [place] # (Auto) 0.2 (0.2-0.9) 10^3/u L Eos # (Auto) 0.2 (0.0-0.8) 10^3/u L Baso # (Auto) 0.1 (0.0-0.1) 10^3/u L Nucleated RBC % (a uto) 0 % Nucleated RBCs # 0.0 /100WBC Sodium 139 (136-145) mmol/L Potassium 4.8 (3.5-5.1) mmol/L Chloride 102 (98-107) mmol/L Carbon Dioxide 25 (22-29) mmol/L Anion Gap 16.8 (5-19) BUN 17 (6-20) mg/dL Creatinine 1.3 H (0.7-1.2) mg/dL GFR Calculation 56.5 L (90-130) mL/min Glucose 198 H (65-115) mg/dL POC Glucose (70-110) mg/dL Estimat Average Gl ucose 186 Hemoglobin A1c 8.1 H (4.0-6.0) % Calculated Osmolal ity 290 (285-295) mOsm/k g Calcium 9.8 (8.5-10.5) mg/dL Total Bilirubin 0.3 (0.15-1.2) mg/dL AST 31 (0-40) U/L ALT 30 (0-41) U/L Alkaline Phosphata se 66 (40-130) IU/L C-Reactive Protein 20.3 H (0.0-4.9) mg/L Total Protein 7.9 (6.6-8.7) g/dL Albumin 4.0 (3.5-5.2) g/dL Globulin 3.9 (1.3-4.6) g/dL TSH (0.27-4.20) uIU/ mL Vancomycin Trough (10-15) ug/mL 11/26/19 11/27/19 11/27/19 Range/Units 15:00 05:01 05:01 WBC 10.3 H (4.0-10.0) 10^3/ uL RBC 4.67 (4.1-5.3) 10^6/u L Hgb 12.8 (11.7-16.6) g/dL Hct 43.1 (42.0-52.0) % MCV 92.3 (80-94) fL MCH 27.4 L (28.0-34.0) pg MCHC 29.7 L (30.0-36.0) g/dL RDW 17.5 H (12.1-15.1) % Plt Count 411 H (130-400) 10^3/c mm MPV 9.3 (7.4-10.4) fL Neut % (Auto) 84.0 % Lymph % (Auto) 11.0 % [place] % (Auto) 3.9 % Eos % (Auto) 0.1 % Baso % (Auto) 0.3 % Neut # (Auto) 8.67 H (1.8-7.7) 10^3/u L Lymph # (Auto) 1.1 (0.8-4.8) 10^3/u L [place] # (Auto) 0.4 (0.2-0.9) 10^3/u L Eos # (Auto) 0.0 (0.0-0.8) 10^3/u L Baso # (Auto) 0.0 (0.0-0.1) 10^3/u L Nucleated RBC % (a uto) 0 % Nucleated RBCs # 0.0 /100WBC Sodium 140 (136-145) mmol/L Potassium 4.3 (3.5-5.1) mmol/L Chloride 103 (98-107) mmol/L Carbon Dioxide 24 (22-29) mmol/L Anion Gap 17.3 (5-19) BUN 23 H (6-20) mg/dL Creatinine 1.3 H (0.7-1.2) mg/dL GFR Calculation 56.5 L (90-130) mL/min Glucose 168 H (65-115) mg/dL POC Glucose (70-110) mg/dL Estimat Average Gl ucose Hemoglobin A1c (4.0-6.0) % Calculated Osmolal ity 291 (285-295) mOsm/k g Calcium 10.2 (8.5-10.5) mg/dL Total Bilirubin (0.15-1.2) mg/dL AST (0-40) U/L ALT (0-41) U/L Alkaline Phosphata se (40-130) IU/L C-Reactive Protein (0.0-4.9) mg/L Total Protein (6.6-8.7) g/dL Albumin (3.5-5.2) g/dL Globulin (1.3-4.6) g/dL TSH 0.45 (0.27-4.20) uIU/ mL Vancomycin Trough (10-15) ug/mL 11/27/19 11/27/19 11/27/19 Range/Units 06:16 10:27 14:55 WBC (4.0-10.0) 10^3/ uL RBC (4.1-5.3) 10^6/u L Hgb (11.7-16.6) g/dL Hct (42.0-52.0) % MCV (80-94) fL MCH (28.0-34.0) pg MCHC (30.0-36.0) g/dL RDW (12.1-15.1) % Plt Count (130-400) 10^3/c mm MPV (7.4-10.4) fL Neut % (Auto) % Lymph % (Auto) % [place] % (Auto) % Eos % (Auto) % Baso % (Auto) % Neut # (Auto) (1.8-7.7) 10^3/u L Lymph # (Auto) (0.8-4.8) 10^3/u L [place] # (Auto) (0.2-0.9) 10^3/u L Eos # (Auto) (0.0-0.8) 10^3/u L Baso # (Auto) (0.0-0.1) 10^3/u L Nucleated RBC % (a uto) % Nucleated RBCs # /100WBC Sodium (136-145) mmol/L Potassium (3.5-5.1) mmol/L Chloride (98-107) mmol/L Carbon Dioxide (22-29) mmol/L Anion Gap (5-19) BUN (6-20) mg/dL Creatinine (0.7-1.2) mg/dL GFR Calculation (90-130) mL/min Glucose (65-115) mg/dL POC Glucose 182 155 (70-110) mg/dL Estimat Average Gl ucose Hemoglobin A1c (4.0-6.0) % Calculated Osmolal ity (285-295) mOsm/k g Calcium (8.5-10.5) mg/dL Total Bilirubin (0.15-1.2) mg/dL AST (0-40) U/L ALT (0-41) U/L Alkaline Phosphata se (40-130) IU/L C-Reactive Protein (0.0-4.9) mg/L Total Protein (6.6-8.7) g/dL Albumin (3.5-5.2) g/dL Globulin (1.3-4.6) g/dL TSH (0.27-4.20) uIU/ mL Vancomycin Trough 10.3 (10-15) ug/mL Discharge Plan Discharge Patient Disposition: Admitted As Inpatient Admit Provider: Mike Acosta Clinical Impression: Septic olecranon bursitis of right elbow Condition: Stable Referrals: Rosi Flores MD [Hospitalist] - 12/04/19 1:00 pm ([phone] [facility]) Bj Casey NP [Primary Care Provider] - 12/05/19 2:00 pm Kamran Ling MD [Physician] - 12/04/19 10:30 am Discharge Diet: Diabetic Discharge Activity: Resume usual activity Patient Instructions: Bursitis - Elbow, Cephalexin (By mouth), Doxylamine (By mouth), Chlorhexidine (On the skin), Wound Healing and Your Diet (DC) Additional Instructions: Change dressing daily as instructed. Leave arm in sling. Change dressing daily, apply mupirocin with gloved hands or thoroughly washed hands (with soap) prior to application over suture line. Use hibiclens to wash right arm at bath time. Change dressing AFTER showering Discharge Date/Time: 11/26/19 21:16 Sign Out Sign Out Data: Patient Sign Out occurred on 11/26/19 at 18:25. Patient's care was discussed, and care was transferred from to [facility]. Coding Level of Care Code ED Padded Products Inspector Trimmer for Chg Fwd Exam Expanded Problem Focused Documented by User: Geoffrey Vuong DO 11/30/19 15:20 HPI - Wound/Laceration General: Chief Complaint: Skin/Abscess/Foreign Body Stated Complaint: possible abscess right elbow Time Seen by Provider: 11/26/19 14:14 PFSH ED PFSH: Medical History (Updated 11/26/19 @ 20:55 by Mike Acosta MD) Attention-deficit hyperactivity disorder, combined type Chronic epididymitis Chronic kidney disease, stage II (mild) CIDP (chronic inflammatory demyelinating polyneuropathy) Reports he takes dexamethasone intermittently when symptoms flare Epididymitis History of coronary angiogram Hyperglycemia Denies diabetes, but is on medication for this. Hypertension Major depressive disorder, recurrent, in full remission Morbid obesity Narcissistic personality disorder Obstructive sleep apnea Post traumatic stress disorder Prinzmetal's angina Right groin pain Testosterone deficiency Surgical History H/O carpal tunnel repair bilateral H/O sinus surgery deviated septum History of tonsillectomy History of total left knee replacement Status post bilateral below knee amputation Left side, reports secondary to fracture causing reduced blood supply Family History Mother , at age 85 No problems noted. Father , at age 75 Cancer skin, prostate Social History Smoking and tobacco status: former smoker Adopted: No Caregiver/support person: No Lives independently: No Household members: spouse Marital status: Current occupational status: disabled History of recent travel: No Current gender identity: Male Course Vital Signs: Vital signs: Vital Signs Temperature 98.2 F 11/28/19 10:46 Pulse Rate 79 11/28/19 10:46 Respiratory Rate 18 11/28/19 17:41 Blood Pressure 126/73 11/28/19 08:53 Pulse Oximetry 97 11/28/19 10:46 MDM - Wound/Laceration MDM Narrative: Medical decision making narrative: Mandi Benoit have discussed this patient with me for admission with reviewed chart with her agreed on admission. Due to other pressing patients in the emergency room was not able to actually see the patient care was handed over to Dr. Cornejo to write orders. Lab Data: Labs: Lab Results 11/26/19 11/26/19 11/26/19 Range/Units 15:00 15:00 15:00 WBC 8.1 (4.0-10.0) 10^3/ uL RBC 4.59 (4.1-5.3) 10^6/u L Hgb 12.8 (11.7-16.6) g/dL Hct 42.1 (42.0-52.0) % MCV 91.7 (80-94) fL MCH 27.9 L (28.0-34.0) pg MCHC 30.4 (30.0-36.0) g/dL RDW 17.6 H (12.1-15.1) % Plt Count 358 (130-400) 10^3/c mm MPV 9.4 (7.4-10.4) fL Neut % (Auto) 83.6 % Lymph % (Auto) 9.9 % [place] % (Auto) 2.7 % Eos % (Auto) 2.1 % Baso % (Auto) 1.0 % Neut # (Auto) 6.79 (1.8-7.7) 10^3/u L Lymph # (Auto) 0.8 (0.8-4.8) 10^3/u L [place] # (Auto) 0.2 (0.2-0.9) 10^3/u L Eos # (Auto) 0.2 (0.0-0.8) 10^3/u L Baso # (Auto) 0.1 (0.0-0.1) 10^3/u L Nucleated RBC % (a uto) 0 % Nucleated RBCs # 0.0 /100WBC Sodium 139 (136-145) mmol/L Potassium 4.8 (3.5-5.1) mmol/L Chloride 102 (98-107) mmol/L Carbon Dioxide 25 (22-29) mmol/L Anion Gap 16.8 (5-19) BUN 17 (6-20) mg/dL Creatinine 1.3 H (0.7-1.2) mg/dL GFR Calculation 56.5 L (90-130) mL/min Glucose 198 H (65-115) mg/dL POC Glucose (70-110) mg/dL Estimat Average Gl ucose 186 Hemoglobin A1c 8.1 H (4.0-6.0) % Calculated Osmolal ity 290 (285-295) mOsm/k g Calcium 9.8 (8.5-10.5) mg/dL Total Bilirubin 0.3 (0.15-1.2) mg/dL AST 31 (0-40) U/L ALT 30 (0-41) U/L Alkaline Phosphata se 66 (40-130) IU/L C-Reactive Protein 20.3 H (0.0-4.9) mg/L Total Protein 7.9 (6.6-8.7) g/dL Albumin 4.0 (3.5-5.2) g/dL Globulin 3.9 (1.3-4.6) g/dL TSH (0.27-4.20) uIU/ mL Vancomycin Trough (10-15) ug/mL 11/26/19 11/27/19 11/27/19 Range/Units 15:00 05:01 05:01 WBC 10.3 H (4.0-10.0) 10^3/ uL RBC 4.67 (4.1-5.3) 10^6/u L Hgb 12.8 (11.7-16.6) g/dL Hct 43.1 (42.0-52.0) % MCV 92.3 (80-94) fL MCH 27.4 L (28.0-34.0) pg MCHC 29.7 L (30.0-36.0) g/dL RDW 17.5 H (12.1-15.1) % Plt Count 411 H (130-400) 10^3/c mm MPV 9.3 (7.4-10.4) fL Neut % (Auto) 84.0 % Lymph % (Auto) 11.0 % [place] % (Auto) 3.9 % Eos % (Auto) 0.1 % Baso % (Auto) 0.3 % Neut # (Auto) 8.67 H (1.8-7.7) 10^3/u L Lymph # (Auto) 1.1 (0.8-4.8) 10^3/u L [place] # (Auto) 0.4 (0.2-0.9) 10^3/u L Eos # (Auto) 0.0 (0.0-0.8) 10^3/u L Baso # (Auto) 0.0 (0.0-0.1) 10^3/u L Nucleated RBC % (a uto) 0 % Nucleated RBCs # 0.0 /100WBC Sodium 140 (136-145) mmol/L Potassium 4.3 (3.5-5.1) mmol/L Chloride 103 (98-107) mmol/L Carbon Dioxide 24 (22-29) mmol/L Anion Gap 17.3 (5-19) BUN 23 H (6-20) mg/dL Creatinine 1.3 H (0.7-1.2) mg/dL GFR Calculation 56.5 L (90-130) mL/min Glucose 168 H (65-115) mg/dL POC Glucose (70-110) mg/dL Estimat Average Gl ucose Hemoglobin A1c (4.0-6.0) % Calculated Osmolal ity 291 (285-295) mOsm/k g Calcium 10.2 (8.5-10.5) mg/dL Total Bilirubin (0.15-1.2) mg/dL AST (0-40) U/L ALT (0-41) U/L Alkaline Phosphata se (40-130) IU/L C-Reactive Protein (0.0-4.9) mg/L Total Protein (6.6-8.7) g/dL Albumin (3.5-5.2) g/dL Globulin (1.3-4.6) g/dL TSH 0.45 (0.27-4.20) uIU/ mL Vancomycin Trough (10-15) ug/mL 11/27/19 11/27/19 11/27/19 Range/Units 06:16 10:27 14:55 WBC (4.0-10.0) 10^3/ uL RBC (4.1-5.3) 10^6/u L Hgb (11.7-16.6) g/dL Hct (42.0-52.0) % MCV (80-94) fL MCH (28.0-34.0) pg MCHC (30.0-36.0) g/dL RDW (12.1-15.1) % Plt Count (130-400) 10^3/c mm MPV (7.4-10.4) fL Neut % (Auto) % Lymph % (Auto) % [place] % (Auto) % Eos % (Auto) % Baso % (Auto) % Neut # (Auto) (1.8-7.7) 10^3/u L Lymph # (Auto) (0.8-4.8) 10^3/u L [place] # (Auto) (0.2-0.9) 10^3/u L Eos # (Auto) (0.0-0.8) 10^3/u L Baso # (Auto) (0.0-0.1) 10^3/u L Nucleated RBC % (a uto) % Nucleated RBCs # /100WBC Sodium (136-145) mmol/L Potassium (3.5-5.1) mmol/L Chloride (98-107) mmol/L Carbon Dioxide (22-29) mmol/L Anion Gap (5-19) BUN (6-20) mg/dL Creatinine (0.7-1.2) mg/dL GFR Calculation (90-130) mL/min Glucose (65-115) mg/dL POC Glucose 182 155 (70-110) mg/dL Estimat Average Gl ucose Hemoglobin A1c (4.0-6.0) % Calculated Osmolal ity (285-295) mOsm/k g Calcium (8.5-10.5) mg/dL Total Bilirubin (0.15-1.2) mg/dL AST (0-40) U/L ALT (0-41) U/L Alkaline Phosphata se (40-130) IU/L C-Reactive Protein (0.0-4.9) mg/L Total Protein (6.6-8.7) g/dL Albumin (3.5-5.2) g/dL Globulin (1.3-4.6) g/dL TSH (0.27-4.20) uIU/ mL Vancomycin Trough 10.3 (10-15) ug/mL Discharge Plan Discharge Patient Disposition: Admitted As Inpatient Admit Provider: Mike Acosta Clinical Impression: Septic olecranon bursitis of right elbow Condition: Stable Referrals: Rosi Flores MD [Hospitalist] - 12/04/19 1:00 pm ([phone] [facility]) Bj Casey NP [Primary Care Provider] - 12/05/19 2:00 pm Kamran Ling MD [Physician] - 12/04/19 10:30 am Discharge Diet: Diabetic Discharge Activity: Resume usual activity Patient Instructions: Bursitis - Elbow, Cephalexin (By mouth), Doxylamine (By mouth), Chlorhexidine (On the skin), Wound Healing and Your Diet (DC) Additional Instructions: Change dressing daily as instructed. Leave arm in sling. Change dressing daily, apply mupirocin with gloved hands or thoroughly washed hands (with soap) prior to application over suture line. Use hibiclens to wash right arm at bath time. Change dressing AFTER showering Discharge Date/Time: 11/26/19 21:16 Sign Out Sign Out Data: Patient Sign Out occurred on 11/26/19 at 18:25. Patient's care was discussed, and care was transferred from to [facility]. Coding Level of Care Code ED Padded Products Inspector Trimmer for Chg Fwd Exam Expanded Problem Focused
[2019-11-26 15:17] LABS: Basophils # 0.1 10^3/uL (0.0-0.1); Eosinophils # 0.2 10^3/uL (0.0-0.8); Eosinophils % 2.1 %; Hematocrit 42.1 % (42.0-52.0); Hemoglobin 12.8 g/dL (11.7-16.6); Lymphocytes # 0.8 10^3/uL (0.8-4.8); Lymphocytes % 9.9 %; Mean Corpuscular HGB Conc 30.4 g/dL (30.0-36.0); Mean Corpuscular Hemoglobin 27.9 pg (28.0-34.0); Mean Corpuscular Volume 91.7 fL (80-94); Mean Platelet Volume 9.4 fL (7.4-10.4); Monocytes # 0.2 10^3/uL (0.2-0.9); Monocytes % 2.7 %; Neutrophils # 6.79 10^3/uL (1.8-7.7); Neutrophils % 83.6 %; Nucleated Red Blood Cells % 0 %; Platelet Count 358 10^3/cmm (130-400); Red Blood Count 4.59 10^6/uL (4.1-5.3); Red Cell Distribution Width 17.6 % (12.1-15.1); White Blood Count 8.1 10^3/uL (4.0-10.0)
[2019-11-26 15:45] LABS: Alanine Aminotransferase 30 U/L (0-41); Alkaline Phosphatase 66 IU/L (40-130); Anion Gap 16.8 (5-19); Aspartate Amino Transferase 31 U/L (0-40); Blood Urea Nitrogen 17 mg/dL (6-20); C Reactive Protein 20.3 mg/L (0.0-4.9); Calcium 9.8 mg/dL (8.5-10.5); Carbon Dioxide 25 mmol/L (22-29); Chloride 102 mmol/L (98-107); Globulin 3.9 g/dL (1.3-4.6); Glomerular Filtration Rate 56.5 mL/min (90-130); Glucose 198 mg/dL (65-115); Osmolality Calculated 290 mOsm/kg (285-295); Potassium 4.8 mmol/L (3.5-5.1); Sodium 139 mmol/L (136-145); Total Bilirubin 0.3 mg/dL (0.15-1.2); Total Protein 7.9 g/dL (6.6-8.7)
[2019-11-26] MEDS: vancomycin 1,000 MG in sodium chloride 0.9% 250 ML 250 MG IV (15:58)
--- NOTE | 2019-11-26 16:37 | CTR_ITS ---
PROCEDURE INFORMATION: Exam: CT Right Upper Extremity With Contrast, Elbow Exam date and time: 11/26/2019 5:02 PM Age: 59 years old Clinical indication: Pain; Mass or lump; Elbow; Right; Additional info: Infected/septic bursitis; Concern for joint involvement TECHNIQUE: Imaging protocol: CT of the Right upper extremity with intravenous contrast was performed. Exam focused on the elbow. Radiation optimization: All CT scans at this facility use at least one of these dose optimization techniques: automated exposure control; mA and/or kV adjustment per patient size (includes targeted exams where dose is matched to clinical indication); or iterative reconstruction. Contrast material: OMNI 300; Contrast volume: 95 ml; Contrast route: INTRAVENOUS (IV); COMPARISON: CR XR elbow RT min 3V* [id number] 11/23/2019 2:14 PM RADIATION DOSE METRICS: Total DLP (mGy-cm): 558.6 FINDINGS: Bones/joints: No visible osteolytic or osteoblastic destructive process. No visible acute osseous abnormality within the field of view. No visible joint effusion. Soft tissues: Evidence of olecranon bursitis. The olecranon bursa appears inflamed and edematous. The olecranon bursa is also is surrounded by and contains numerous punctate reticular soft tissue calcification foci. The soft tissue diffuse reticular ossification foci extend through the subcutaneous soft tissues of the ulnar aspect of the forearm proximally. Potential for an olecranon bursa synovioma. The soft tissue diffuse reticular ossification pattern may be secondary to chronic venous stasis and represent phleboliths. Vasculature: Arterial structures within the field of view appear intact and unremarkable. CT/CT elbow RT w con [id number] IMPRESSION: 1. No visible osteolytic or osteoblastic destructive process. 2. Evidence of olecranon bursitis. 3. Potential for an olecranon bursa synovioma. Please review discussion in text. 4. Diffuse reticular ossification pattern of the subcutaneous soft tissues and surrounding the olecranon bursa may be secondary to chronic venous stasis and phleboliths. Radiation Dose CTDIVOL = (mGy): DLP = 558.6 (mGy-cm)
[2019-11-26] MEDS: iohexol 300 mg/mL 100 mL Btl IV (17:33)
--- NOTE | 2019-11-26 19:16 | PC.NURSE ---
ASSUMED CARE OF PT FROM ADAN LOPEZ RN AT THIS TIME.
[2019-11-26] MEDS: piperacillin-tazobactam 3.375 GM in sodium chloride 0.9% (plus) 50 ML IV (19:36)
--- NOTE | 2019-11-26 20:37 | PM.CONSULT ---
Providers/Reason For Consult Consulting Physican/Specialty*: Kamran Ling MD, orthopedic surgery Reason for Consult*: Septic right olecranon bursitis Attending Physician: Mike Acosta MD Primary Care Provider: Bj Casey NP History of Present Illness History of Present Illness Robert Kapoor is a 59 year old male with a history of pain and swelling in his right elbow that began approximately 2 weeks ago. He states at that time he fell landing on his right elbow. He apparently had radiographs obtained which are unremarkable. He stated sometime after that he began noting increased redness and swelling. He seen by his primary care physician and placed on cephalexin 3 days ago. Despite treatment the patient does not describe significant improvement of the elbow. Today he began noticing an area of drainage. He has a history of MRSA. Review of Systems Const: Denies: fever(s) or chills Meds/Allergies Home Medications and Allergies Home Medications Medication Instructions Recorded Confirmed Last Taken Type losartan 100 mg tablet 100 mg PO DAILY 06/25/19 11/26/19 11/26/19 History propranolol 40 mg tablet 40 mg PO BID PRN 07/26/19 11/26/19 11/26/19 History testosterone cypionate 200 mg/mL 200 mg IM Q14D 07/26/19 11/26/19 11/23/19 History intramuscular oil zinc 50 mg tablet 50 mg PO DAILY 07/26/19 11/26/19 11/26/19 History aspirin 325 mg tablet 325 mg PO DAILY PRN tab 11/09/19 11/26/19 11/26/19 History empagliflozin 10 mg tablet 25 mg PO DAILY 11/09/19 11/26/19 11/26/19 History furosemide 40 mg tablet 40 mg PO BID PRN tab 11/09/19 11/26/19 11/26/19 History gensing 250 mg PO DAILY 11/09/19 11/26/19 11/26/19 History ibuprofen 400 mg tablet 800 mg PO BID PRN tab 11/09/19 11/26/19 11/26/19 History magnesium 250 mg PO DAILY PRN 11/09/19 11/26/19 Unknown History metformin 500 mg tablet 1,000 mg PO BID tab 11/09/19 11/26/19 11/26/19 History oxycodone 30 mg tablet See Rx Instructions .ROUTE 11/09/19 11/26/19 11/26/19 History .COMPLEX PRN tab potassium 99 mg PO DAILY PRN 11/09/19 11/26/19 Unknown History probiotic with pectin 323 mg PO DAILY 11/09/19 11/26/19 11/26/19 History Ritalin 10 mg PO Q4H 11/26/19 11/26/19 11/26/19 History amlodipine 5 mg PO DAILY 11/26/19 11/26/19 11/26/19 History ascorbic acid (vitamin C) [Vitamin 1,000 mg PO DAILY 11/26/19 11/26/19 11/26/19 History C] cephalexin 500 mg PO QID 11/26/19 11/26/19 11/26/19 History dexamethasone 12 mg PO DAILY 11/26/19 11/26/19 11/26/19 History Allergies Allergy/AdvReac Type Severity Reaction Status Date / Time Sulfa (Sulfonamide Allergy Intermediate Gives Verified 11/09/19 12:40 Antibiotics) bodywide yeast infection. steroids AdvReac Intermediate Affected Uncoded 11/09/19 12:40 body chemistry for about a month PFSH Acute PFSH: Medical History (Updated 11/26/19 @ 19:51 by Rachel Heredia) Attention-deficit hyperactivity disorder, combined type Chronic epididymitis Epididymitis Major depressive disorder, recurrent, in full remission Narcissistic personality disorder Post traumatic stress disorder Right groin pain Family History Mother , at age 85 No problems noted. Father , at age 75 Cancer skin, prostate Social History (Updated 11/26/19 @ 14:11 by Nicolas Cha RN) Smoking and tobacco status: former smoker Substance/Drug Use: current Substance/Drug use frequency: few times a week Substance/Drug use type: Marijuana Adopted: No Caregiver/support person: No Lives independently: No Household members: spouse Marital status: Current occupational status: disabled History of recent travel: No Current gender identity: Male Vitals/I&O/Wt Last Vital Signs Temp 98.4 F 11/26/19 14:02 Pulse 76 11/26/19 19:00 Resp 18 11/26/19 19:00 BP 130/77 11/26/19 19:00 Pulse Ox 97 11/26/19 19:00 11/26/19 11/26/19 11/26/19 06:59 14:59 22:59 Intake Total 250 / 250 Balance 250 / 250 Weight last 48 hrs Weight 425 lb Physical Exam Narrative: EXAM NARRATIVE: Patient is a large male. He is conversive and answers questions appropriately. On examination of his right elbow there is an area of of fluctuance and drainage overlying his olecranon with surrounding erythema. He can fully extend his elbow and flex to 130 degrees. He can pronate and supinate 70 degrees in each direction. He has no pain with motion. He can flex extend his ulnar 4 fingers as well as extend and oppose his right thumb. He is a strong radial pulse. Sensation is grossly intact light touch. Data Micro: Micro: Microbiology 11/26/19 14:50 Gram Stain - Final Elbow - #1 11/26/19 15:05 Blood Culture - Pr eliminary Blood SPE[facility]IM[facility] 11/26/19 15:00 Blood Culture - Pr eliminary Blood SPECIMEN [facility] A&P Assessment and plan (1) Septic olecranon bursitis of right elbow: I discussed options with the patient. I told him typically septic bursitis can be very difficult to improve with antibiotics alone. Has had no improvement with 3 days of oral antibiotics. I think the best option at this point would be go to the operating room for excision of the septic right olecranon bursa. I told him he more than likely can be discharged home tomorrow. We will try to hold his dexamethasone for now minimize its immunosuppressive effects. I spoke with Dr. Moreira who will admit the patient and will plan on surgery in the binding end stitcher. Status: Acute Coding Level of Care Code Acute Refrigeration System Installer for [facility] Diagnoses Septic olecranon bursitis of right elbow M71.121
--- NOTE | 2019-11-26 20:38 | P.HP_ITS ---
Providers/Chief Complaint Admitting Physician: Mike Acosta MD Primary Care Provider: Bj Casey NP Chief Complaint: RIGHT ELBOW SWELLING History of Present Illness Robert Kapoor is a 59 year old male presented to the emergency department with right elbow swelling and draining. He reports the olecranon bursa has been swollen for years, but about 10 days ago he fell and it is been swelling more, and tender. In the last 24 to 36 hours it started to drain white pus. He reports no fevers. Orthopedics has been consulted by the emergency department with intention on removing the bursa, and cleaning out the area by surgery tomorrow. He has been on antibiotics orally for this from his primary care provider. In discussing his surgical risk with him he denies any problems with anesthesia other than swinging when he comes out of it and he reports his can calm his violent nature when he wakes up. He reports this is secondary to his PTSD. No history of Covid exposure, fever or cough. Review of Systems General: Reports: 10 or more systems reviewed and unremarkable except in HPI and below Const: Denies: fever(s) or chills Eyes: Denies: change in vision ENMT: Denies: throat pain Card: Denies: chest pain Resp: Denies: dyspnea GI: Denies: abdominal pain : Denies: flank pain Musc: Reports: joint swelling Skin/Breast: Denies: rash Neuro: Denies: headache(s) Psych: Reports: depression Endo: Denies: polyuria Chidi/Lymph: Denies: easy bruising All/Imm: Denies: urticaria Medications/Allergies Home Medications Medication Instructions Recorded Confirmed Last Taken Type losartan 100 mg tablet 100 mg PO DAILY 06/25/19 11/26/19 11/26/19 History propranolol 40 mg tablet 40 mg PO BID PRN 07/26/19 11/26/19 11/26/19 History testosterone cypionate 200 mg/mL 200 mg IM Q14D 07/26/19 11/26/19 11/23/19 History intramuscular oil zinc 50 mg tablet 50 mg PO DAILY 07/26/19 11/26/19 11/26/19 History aspirin 325 mg tablet 325 mg PO DAILY PRN tab 11/09/19 11/26/19 11/26/19 History empagliflozin 10 mg tablet 25 mg PO DAILY 11/09/19 11/26/19 11/26/19 History furosemide 40 mg tablet 40 mg PO BID PRN tab 11/09/19 11/26/19 11/26/19 History gensing 250 mg PO DAILY 11/09/19 11/26/19 11/26/19 History ibuprofen 400 mg tablet 800 mg PO BID PRN tab 11/09/19 11/26/19 11/26/19 History magnesium 250 mg PO DAILY PRN 11/09/19 11/26/19 Unknown History metformin 500 mg tablet 1,000 mg PO BID tab 11/09/19 11/26/19 11/26/19 History oxycodone 30 mg tablet See Rx Instructions .ROUTE 11/09/19 11/26/19 11/26/19 History .COMPLEX PRN tab potassium 99 mg PO DAILY PRN 11/09/19 11/26/19 Unknown History probiotic with pectin 323 mg PO DAILY 11/09/19 11/26/19 11/26/19 History Ritalin 10 mg PO Q4H 11/26/19 11/26/19 11/26/19 History amlodipine 5 mg PO DAILY 11/26/19 11/26/19 11/26/19 History ascorbic acid (vitamin C) [Vitamin 1,000 mg PO DAILY 11/26/19 11/26/19 11/26/19 History C] cephalexin 500 mg PO QID 11/26/19 11/26/19 11/26/19 History dexamethasone 12 mg PO DAILY 11/26/19 11/26/19 11/26/19 History Allergies Allergy/AdvReac Type Severity Reaction Status Date / Time Sulfa (Sulfonamide Allergy Intermediate Gives Verified 11/09/19 12:40 Antibiotics) bodywide yeast infection. steroids AdvReac Intermediate Affected Uncoded 11/09/19 12:40 body chemistry for about a month PFSH Acute PFSH: Medical History (Updated 11/26/19 @ 20:55 by Mike Acosta MD) Attention-deficit hyperactivity disorder, combined type Chronic epididymitis Chronic kidney disease, stage II (mild) CIDP (chronic inflammatory demyelinating polyneuropathy) Reports he takes dexamethasone intermittently when symptoms flare Epididymitis History of coronary angiogram Hyperglycemia Denies diabetes, but is on medication for this. Hypertension Major depressive disorder, recurrent, in full remission Morbid obesity Narcissistic personality disorder Obstructive sleep apnea Post traumatic stress disorder Prinzmetal's angina Right groin pain Testosterone deficiency Surgical History (Updated 11/26/19 @ 20:47 by Mike Acosta MD) H/O carpal tunnel repair bilateral H/O sinus surgery deviated septum History of tonsillectomy History of total left knee replacement Status post bilateral below knee amputation Left side, reports secondary to fracture causing reduced blood supply Family History Mother , at age 85 No problems noted. Father , at age 75 Cancer skin, prostate Social History Smoking and tobacco status: former smoker Substance/Drug Use: current Substance/Drug use frequency: few times a week Substance/Drug use type: Marijuana Adopted: No Caregiver/support person: No Lives independently: No Household members: spouse Marital status: Current occupational status: disabled History of recent travel: No Current gender identity: Male Vitals/I&O/Wt Last Vital Signs Temp 98.4 F 11/26/19 14:02 Pulse 76 11/26/19 19:00 Resp 18 11/26/19 19:00 BP 130/77 11/26/19 19:00 Pulse Ox 97 11/26/19 19:00 11/26/19 11/26/19 11/26/19 06:59 14:59 22:59 Intake Total 250 / 250 Balance 250 / 250 Weight last 48 hrs Weight 192.777 kg Physical Exam Narrative: EXAM NARRATIVE: General exam demonstrates a white male, in no apparent distress HEENT: Pupils equally round. Oropharynx clear. Neck is supple, obese. Cardiovascular regular rate and rhythm, heart sounds distant Lungs clear no wheezes or crackles Abdomen is soft obese nontender with positive bowel sounds. Extremities no cyanosis clubbing no edema, left below the knee amputation noted. Neurologic: No obvious focal deficits Skin no rash Data : 11/26/19 15:00 11/26/19 15:00 Micro: Microbiology 11/26/19 14:50 Gram Stain - Final Elbow - #1 11/26/19 15:05 Blood Culture - Preliminary Blood SPECIMEN COLLECTED 11/26/19 15:00 Blood Culture - Preliminary Blood SPECIMEN COLLECTED Other data: LFTs within normal limits. CRP elevated at 20 CT elbow, evidence of chronic inflammation, soft tissue edema, and no evidence of osteomyelitis A&P Assessment and plan (1) Septic olecranon bursitis of right elbow: Continue vancomycin Culture obtained in the emergency department Orthopedic consult. They intend on surgery tomorrow with cleaning out the olecranon bursa, and removing it. From discussion directly with surgery, he can be an observation patient and be discharged tomorrow following surgery if there are no other concerns. Status: Acute (2) Hyperglycemia: He is on medication for diabetes although he reports he does not have diabetes. Blood sugar is elevated on his BMP. Hemoglobin A1c will be done to see what his control is. Sliding scale insulin if needed. Status: Acute (3) Morbid obesity: Encouraged weight loss Check TSH although likely to be normal Status: Acute Additional A&P Information Depression with history of PTSD, ADHD Chronic pain History of CIDP, for which he uses dexamethasone intermittently. As his use is fairly rare I do not think there is a great concern for adrenal crisis for his upcoming surgery Hypertension, continue home medication Chronic kidney disease stage II by reviewing old lab. Avoid anti- inflammatories. Obstructive sleep apnea. Home CPAP is okay to use Other medical problems as listed in his past medical history. Check EKG prior to surgery Anesthesia risk primarily related to his sleep apnea, obesity. No direct contraindications to surgery. Note he reports significant agitation when he becomes aware following anesthetics. Full code SCDs for DVT prophylaxis, surgery anticipated tomorrow morning Attestations Medical Necessity Statement*: Will need less than 2 midnight stay for treatment of septic olecranon bursitis with IV antibiotics, and primary treatment of surgery. Time Spent in Patient Care: Greater than 35 minutes Coding Level of Care Code Acute Robotic Machine Tender Production for [employer] Diagnoses Septic olecranon bursitis of right elbow M71.121 Hyperglycemia R73.9 Morbid obesity E66.01
--- NOTE | 2019-11-26 20:49 | ECG_ITS ---
[facility] Test Date: 2019-11-26 Pat Name: Robert Kapoor Department: Room: 266 Gender: Male International Project Manager: : 1960 Requested By: Mike Quiroz Order Number: [id number] Natalie MD: Linnette Gimenez M.D. Measurements Intervals [place] Rate: 80 P: 60 ID: [id number] QRS: 37 QRSD: 86 T: 62 QT: 354 QTc: 410 Interpretive Statements SINUS RHYTHM LOW QRS VOLTAGE IN PRECORDIAL LEADS [QRS DEFLECTION < 1.0 mV IN CHEST LEADS] No previous ECG available for comparison Electronically Signed On 11-27-2019 12:56:17 CDT by Linnette Gimenez M.D. [id number]
--- NOTE | 2019-11-26 20:57 | PC.NURSE ---
PT REFUSES TO HAVE EKG AND VITAL SIGNS DONE AT THIS TIME. PT STATES HE WILL DO IT LATER. I'M SURE MY EKG IS JUST FINE. PT INFORMED THAT WE NEED TO CHECK THEM AT SOME POINT. PT AGREED TO HAVE THEM DONE LATER.
[2019-11-26 21:33] LABS: Thyroid Stimulating Hormone 0.45 uIU/mL (0.27-4.20)
--- NOTE | 2019-11-26 21:47 | PC.PHAR ---
Vancomycin is dosed at 1000mg IVPB every8 hours to produce a predicted trough level of 10.82 (population based pharmacokinetic analysis ).A trough level has been ordered to be obtained before the fourth dose to confirm and adjust if needed.
[2019-11-26 21:52] LABS: Estmated Average Glucose 186; Hemoglobin A1C 8.1 % (4.0-6.0)
[2019-11-26] MEDS: sodium chloride 0.9% 1,000 ML 100 ML IV (22:11)
[2019-11-27] VITALS (10 sets, daily range): BP systolic 114–182; BP diastolic 77–91; PULSE 76–99; RESP 16–20; TEMP 36.7–37.3; O2SAT 96–100
[2019-11-27] MEDS: vancomycin 1,000 MG in sodium chloride 0.9% 250 ML 250 MG IV ×3 (00:27→16:20)
[2019-11-27 05:23] LABS: Basophils % 0.3 %; Eosinophils % 0.1 %; Hematocrit 43.1 % (42.0-52.0); Hemoglobin 12.8 g/dL (11.7-16.6); Lymphocytes # 1.1 10^3/uL (0.8-4.8); Mean Corpuscular HGB Conc 29.7 g/dL (30.0-36.0); Mean Corpuscular Hemoglobin 27.4 pg (28.0-34.0); Mean Corpuscular Volume 92.3 fL (80-94); Mean Platelet Volume 9.3 fL (7.4-10.4); Monocytes # 0.4 10^3/uL (0.2-0.9); Monocytes % 3.9 %; Neutrophils # 8.67 10^3/uL (1.8-7.7); Nucleated Red Blood Cells % 0 %; Platelet Count 411 10^3/cmm (130-400); Red Blood Count 4.67 10^6/uL (4.1-5.3); Red Cell Distribution Width 17.5 % (12.1-15.1); White Blood Count 10.3 10^3/uL (4.0-10.0)
[2019-11-27 05:53] LABS: Anion Gap 17.3 (5-19); Blood Urea Nitrogen 23 mg/dL (6-20); Calcium 10.2 mg/dL (8.5-10.5); Carbon Dioxide 24 mmol/L (22-29); Chloride 103 mmol/L (98-107); Glomerular Filtration Rate 56.5 mL/min (90-130); Glucose 168 mg/dL (65-115); Osmolality Calculated 291 mOsm/kg (285-295); Potassium 4.3 mmol/L (3.5-5.1); Sodium 140 mmol/L (136-145)
[2019-11-27 06:31] LABS: Glucose Point of Care 182 mg/dL (70-110)
--- NOTE | 2019-11-27 06:46 | PC.NURSE ---
0545: Patient refused to prep for surgery due to not being at bedside. was allowed at bedside due to patient reports of severe PTSD/aggitation/severe combativeness from anesthesia. This nurse went to educate patient on reasoning for hibaclense and time of surgery, as they would be up to retrieve patient for surgery anytime. His went to go get his medications and this happened as she left due to his refusal to prep or get surgery without my here because I get very combative and agitated toward staff. The patient became very hostile toward this nurse during education of surgery. He became very loud and hostile; talking over this nurse and yelling to get his point across. This nurse let him speak and then attempted to use therapeutic communication to calm the patient in order for him to understand what was entailed for surgical prep and his needs. He stated he would not be disrespected or have people up in his face. This nurse was by the door speaking and stated she would also not be disrespected or talked down to. Patient states he would then start prepping. Patients returned and patient requests packing shed supervisor; I informed the patient that this nurse was charge account clerk for this shift and he requested packing shed supervisor above this nurse be notified and brought in. Jeanine RN Director at bedside with nurse and patient as well as his . Discussed prior event to this point. This nurse exited the room as Jeanine spoke more with patient.
[2019-11-27] MEDS: losartan 50 mg Tablet 100 MG PO (08:36)
[2019-11-27] MEDS: ascorbic acid 500 mg Tablet 1000 MG PO (08:36)
[2019-11-27] MEDS: amlodipine 5 mg Tablet PO (08:36)
[2019-11-27] MEDS: sodium chloride 0.9% 1,000 ML 100 ML IV (09:11)
[2019-11-27 10:40] LABS: Glucose Point of Care 155 mg/dL (70-110)
--- NOTE | 2019-11-27 11:22 | ANES.PREANE2 ---
Pre-Anesthetic Assessment Pre-Anesthetic Assessment: Height/Weight: Height 1.93 m Weight 192.777 kg Temp Pulse Resp BP Pulse Ox 98.0 F 76 20 H 155/79 98 11/27/19 08:00 11/27/19 11:13 11/27/19 08:00 11/27/19 08:36 11/27/19 11:13 Proposed Procedure: Operation Date: 11/27/19 08:05 Proposed Procedures p Excision right olecranon bursa(Right) - Kamran Ling MD Social: Social History: Alcohol (several times a week) and Tobacco (quit) Exam: Pre-Anes Outpt Exam: alert, oriented x 3, clear to auscultation bilaterally and regular rate & rhythm Airway: Submandibular: WNL Cervical ROM: WNL MP: 3 Dentition: Other (teeth ok) History/ROS: No significant history except as noted Pulmonary: Pulmonary: Sleep apnea CV/HEM: CV/HEM: HTN : : Chronic renal Insufficiency Hepatic: Hepatic: None reported Metabolic: Metabolic: DM and Morbid obesity Neuropsych: Neuropsych: Anxiety and Depression Anesthetic Plan: ASA status: 3 Anesthesia: Anesthesia Evaluation, Eval. for regional block, MAC and Regional (specify below) (right axillary blk) Risk of > 500 ml blood loss (7ml/kg in children): No Meds/Allergies Current Medications: Current Medications Generic Name Dose Route Start Last Admin Trade Name Freq PRN Reason Stop Dose Admin Amlodipine Besylat e 5 mg 11/27/19 09:00 11/27/19 08:36 Norvasc PO 5 mg DAILY PHOEBE Administration Ascorbic Acid 1,000 mg 11/27/19 09:00 11/27/19 08:36 Vitamin C PO 1,000 mg DAILY PHOEBE Administration Sodium Chloride 1,000 mls @ 100 m ls/hr 11/26/19 21:27 11/27/19 09:11 Sodium Chloride 0.9% IV 100 mls/hr .Q10H PHOEBE Administration Vancomycin HCl 1,0 00 mg/ 250 mls @ 250 mls /hr 11/27/19 00:00 11/27/19 09:11 Sodium Chloride IV 250 mls/hr Q8H PHOEBE Administration Protocol As Directed Insulin Aspart 0 unit 11/27/19 08:00 11/27/19 08:35 Novolog SUBCUT 4 unit WM&BEDTIME PHOEBE Administration Protocol Losartan Potassium 100 mg 11/27/19 09:00 11/27/19 08:36 Cozaar PO 100 mg DAILY PHOEBE Administration Non-Formulary Medi cation 25 mg 11/27/19 09:00 11/27/19 08:37 Empagliflozin [Jonathan romyrubio] PO Not Given DAILY PHOEBE PFSH Anesthesia PFSH: Medical History (Updated 11/26/19 @ 20:55 by Mike Acosta MD) Attention-deficit hyperactivity disorder, combined type Chronic epididymitis Chronic kidney disease, stage II (mild) CIDP (chronic inflammatory demyelinating polyneuropathy) Reports he takes dexamethasone intermittently when symptoms flare Epididymitis History of coronary angiogram Hyperglycemia Denies diabetes, but is on medication for this. Hypertension Major depressive disorder, recurrent, in full remission Morbid obesity Narcissistic personality disorder Obstructive sleep apnea Post traumatic stress disorder Prinzmetal's angina Right groin pain Testosterone deficiency Surgical History H/O carpal tunnel repair bilateral H/O sinus surgery deviated septum History of tonsillectomy History of total left knee replacement Status post bilateral below knee amputation Left side, reports secondary to fracture causing reduced blood supply Family History Mother , at age 85 No problems noted. Father , at age 75 Cancer skin, prostate Social History Smoking and tobacco status: former smoker Substance/Drug Use: current Substance/Drug use frequency: few times a week Substance/Drug use type: Marijuana Adopted: No Caregiver/support person: No Lives independently: No Household members: spouse Marital status: Current occupational status: disabled History of recent travel: No Current gender identity: Male Data Anesthesia CBC & Chem 7: 11/27/19 05:01 11/27/19 05:01 Other Labs: Laboratory Results - last 48 hr 11/26/19 11/26/19 11/26/19 15:00 15:00 15:00 WBC 8.1 RBC 4.59 Hgb 12.8 Hct 42.1 MCV 91.7 MCH 27.9 L MCHC 30.4 RDW 17.6 H Plt Count 358 MPV 9.4 Neut % (Auto) 83.6 Lymph % (Auto) 9.9 [place] % (Auto) 2.7 Eos % (Auto) 2.1 Baso % (Auto) 1.0 Neut # (Auto) 6.79 Lymph # (Auto) 0.8 [place] # (Auto) 0.2 Eos # (Auto) 0.2 Baso # (Auto) 0.1 Nucleated RBC % (auto) 0 Nucleated RBCs # 0.0 Sodium 139 Potassium 4.8 Chloride 102 Carbon Dioxide 25 Anion Gap 16.8 BUN 17 Creatinine 1.3 H GFR Calculation 56.5 L Glucose 198 H POC Glucose Estimat Average Glucose 186 Hemoglobin A1c 8.1 H Calculated Osmolality 290 Calcium 9.8 Total Bilirubin 0.3 AST 31 ALT 30 Alkaline Phosphatase 66 C-Reactive Protein 20.3 H Total Protein 7.9 Albumin 4.0 Globulin 3.9 TSH 11/26/19 11/27/19 11/27/19 15:00 05:01 05:01 WBC 10.3 H RBC 4.67 Hgb 12.8 Hct 43.1 MCV 92.3 MCH 27.4 L MCHC 29.7 L RDW 17.5 H Plt Count 411 H MPV 9.3 Neut % (Auto) 84.0 Lymph % (Auto) 11.0 [place] % (Auto) 3.9 Eos % (Auto) 0.1 Baso % (Auto) 0.3 Neut # (Auto) 8.67 H Lymph # (Auto) 1.1 [place] # (Auto) 0.4 Eos # (Auto) 0.0 Baso # (Auto) 0.0 Nucleated RBC % (auto) 0 Nucleated RBCs # 0.0 Sodium 140 Potassium 4.3 Chloride 103 Carbon Dioxide 24 Anion Gap 17.3 BUN 23 H Creatinine 1.3 H GFR Calculation 56.5 L Glucose 168 H POC Glucose Estimat Average Glucose Hemoglobin A1c Calculated Osmolality 291 Calcium 10.2 Total Bilirubin AST ALT Alkaline Phosphatase C-Reactive Protein Total Protein Albumin Globulin TSH 0.45 11/27/19 11/27/19 06:16 10:27 WBC RBC Hgb Hct MCV MCH MCHC RDW Plt Count MPV Neut % (Auto) Lymph % (Auto) [place] % (Auto) Eos % (Auto) Baso % (Auto) Neut # (Auto) Lymph # (Auto) [place] # (Auto) Eos # (Auto) Baso # (Auto) Nucleated RBC % (auto) Nucleated RBCs # Sodium Potassium Chloride Carbon Dioxide Anion Gap BUN Creatinine GFR Calculation Glucose POC Glucose 182 155 Estimat Average Glucose Hemoglobin A1c Calculated Osmolality Calcium Total Bilirubin AST ALT Alkaline Phosphatase C-Reactive Protein Total Protein Albumin Globulin TSH Micro: Microbiology 11/26/19 14:50 Gram Stain - Final Elbow - #1 Wound Culture - Preliminary 11/26/19 15:05 Blood Culture - Preliminary Blood SPECIMEN COLLECTED 11/26/19 15:00 Blood Culture - Preliminary Blood SPECIMEN COLLECTED Cardiac Studies: No Data to Display
--- NOTE | 2019-11-27 11:23 | PC.CHAP ---
Pastoral Care Encounter/Spiritual Assessment Type of Contact [] Declined bottle capping machine operator visit [] Patient/Family/Request visit [] Outpatient visit [] Follow-up visit [] Physician referral [] Code/Alert [x] Routine visit [] Staff referral [] Actively dying [] Patient sleeping [] Family support [] [] Out of room [] Palliative care [] [x] Receiving care in room [] Pre-surgical visit [] Trauma [] Long length of stay [] ICU visit [] Other: Relational/Emotional Strength [x] Patient feels connected with others/family/visitors/staff [] Distress [] Loneliness/isolation [] Abandonment Spirituality of Patient [x] Person of Amber [] Attends Restoration of their Amber [x] Believes in Prayer [] Reads Bible or Faith materials [] There are Spiritual issues to be addressed Salesperson Neckties Interventions [x] Prayer [x] Active listening [x] Non-anxious presence [x] Spiritual/emotional support [] Crisis/trauma care [x] Spiritual counseling [] Bereavement support [] Provided bereavement packet [] Provided Bible/devotional materials [] Provided toy/stuffed animal, coloring book to patient or family member [] Provided Communion [] Anointing/[place] [] Salvation [c] Completed spiritual assessment [] Other: Impact on Illness or Injury [] Angry [] Fearful [] Anxious [] Often cries [] Exhaustion [] Unable to work [] Unable to attend caodaism [] Unable to walk/stand [] Unable to read [] Unable to drive [] Unable to eat/drink [] Unable to sleep [] Unable to be with family [] Patient intubated [] Other: Summary Has in fection in right elbow, going into surgy this after noon, has a good attitude about everything, expects to home tomorrow +1 Time spent with patient 10 mins
[2019-11-27] MEDS: fentaNYL 50 mcg/mL INJ 2mL 100 MCG IVP (12:10)
[2019-11-27] MEDS: midazolam 1 mg/mL INJ 5 ML 5 MG IVP (12:11)
--- NOTE | 2019-11-27 12:16 | ANES.PROC ---
Anesthesia Procedures Procedure/Date: 11/27/19 Nerve Block ^: Nerve Block 1: Main Anesthesia: other (MAC) Time Out Performed: Yes Consent: requested by attending/covering physician, risks and benefits reviewed and patient agrees to proceed Nerve block location: axillary (right) Anesthesia monitors applied: pulse oximetry, EKG, BP cuff and oxygen Nerve block position: semi sitting Anesthetic Used: ropivicaine 0.5% and with decadron (4mg) Amount of anesthesia used (mL): 30 Ultrasound used to: recognize landmarks Nerve Stimulator Used?: Yes Interscalene/Femoral BLK: 2 stimuplex 22 g needle used for position and inplane approach, visualize local anesthetic spread and no vascular puncture identified Injection: neg aspiration of heme Patient Tolerated Procedure: well and no complications Complications: none
--- NOTE | 2019-11-27 13:39 | SUR.PHASEI ---
PT AWAKE ALERT ON 3LNC SATS 100% ,PT TALKATIVE WITH GOOD RESP NOTED RT ELBOW WITH SOFT DRESSING D/I DISTAL FINGERS PINK WARM CAP REFILL LESS THAN 3 SECONDS PT DENIES PAIN
--- NOTE | 2019-11-27 13:40 | PM.OP ---
Operative Report Date of procedure: November 27, 2019 Pre-op Diagnosis: Right olecranon bursitis, septic Post-op diagnosis: same Post-op Findings: Same Procedure Done: Excision infected right olecranon bursa Specimens removed/disposition: Routine and anaerobic cultures were obtained. Bursal specimen was sent for pathology Surgeon: Kamran Ling Anesthesia: Nerve Block (Axillary) Estimated blood loss (mL): 50 Tourniquet time (min): 16 Findings: Patient had purulent tissue in the superficial olecranon bursa. He had dense scarring of the olecranon bursa over an area of approximately centimeters. No deep bony involvement was noted Procedure: The patient was taken to the operating room after he was given an axillary block. He was prepped and draped in the supine position with the right arm draped over his body. The tourniquet was inflated 300 mmHg. A 5 cm long incision was made longitudinally over the area of swelling. Dissection was carried down through the skin at which time approximately 5 cc of frankly purulent fluid were identified. This was sent for routine and anaerobic cultures. Using blunt takes scissors to the eschared electron bursa was then freed from the subcutaneous tissue of the skin medially and laterally. Margins of the inflamed bursal tissue will reach medially and laterally distally and proximally scissors were used to elevate this off the the deep periosteum and dorsal musculature. The wound was irrigated with saline. Is closed with interrupted 3-0 Prolene suture. Xeroflo gauze 4 x 4's compressive Luis wrap were applied. The patient was placed in a sling. He was taken recovery in stable condition.
--- NOTE | 2019-11-27 14:00 | SUR.PHASEI ---
PT TO FLOOR PER BED AWAKE ALERT TALKATIVE SLING TO FLOOR WITH PT.
--- NOTE | 2019-11-27 14:33 | PC.PT ---
SHANAE MoranT spoke with Raphael on 11/27/19. Per Dr. Ling, hold PT and OT until further notice.
[2019-11-27 15:34] LABS: Vancomycin Trough 10.3 ug/mL (10-15)
--- NOTE | 2019-11-27 16:11 | P.PN_ITS ---
Subjective Subjective: Interval history: seen post operatively, doing well, no acute complaints. Or findings noted Medications: Reviewed: Yes Vitals/I&O/Wt Last Vital Signs Temp 99.1 F 11/27/19 13:37 Pulse 87 11/27/19 13:37 Resp 18 11/27/19 13:37 BP 114/77 11/27/19 13:37 Pulse Ox 100 11/27/19 13:37 11/27/19 11/27/19 11/27/19 06:59 14:59 22:59 Intake Total 250 / 500 1000 / 1000 Balance 250 / 500 1000 / 1000 Weight last 48 hrs Weight 192.777 kg Physical Exam Narrative: EXAM NARRATIVE: GEN: Awake, alert and oriented, no acute distress CVS: S1S2 N RS: CTA B/L Abd: Soft, nt/nd , bs+ GARBAGE COLLECTOR DRIVER: no focal neuro deficits Data : 11/27/19 05:01 11/27/19 05:01 Micro: Microbiology 11/27/19 13:05 Gram Stain - Final Elbow - #2 11/26/19 15:05 Blood Culture - Preliminary Blood NEGATIVE TO DATE 11/26/19 15:00 Blood Culture - Preliminary Blood NEGATIVE TO DATE 11/26/19 14:50 Gram Stain - Final Elbow - #1 Wound Culture - Preliminary A&P Assessment and plan (1) Septic olecranon bursitis of right elbow: Continue vancomycin Culture obtained in the emergency department and OR today, may be clouded by Keflex that he has been on as outpatient, s/p OR today Status: Acute (2) Hyperglycemia: He is on medication for diabetes although he reports he does not have diabetes. Blood sugar is elevated on his BMP. Sliding scale insulin if needed. Status: Acute (3) Morbid obesity: Encouraged weight loss Check TSH although likely to be normal Status: Acute Additional A&P Information Depression with history of PTSD, ADHD Chronic pain History of CIDP, for which he uses dexamethasone intermittently. As his use is fairly rare I do not think there is a great concern for adrenal crisis for his upcoming surgery Hypertension, continue home medication Chronic kidney disease stage II by reviewing old lab. Avoid anti- inflammatories. Obstructive sleep apnea. Home CPAP is okay to use Other medical problems as listed in his past medical history. Check EKG prior to surgery Anesthesia risk primarily related to his sleep apnea, obesity. No direct contraindications to surgery. Note he reports significant agitation when he becomes aware following anesthetics. Full code SCDs for DVT prophylaxis, s/p OR today Attestations Medical Necessity Statement*: post op monitoring, awaiting prelim cx data Coding Level of Care Code Acute Certified Registered Nurse Practitioner for [facility] Fwd Diagnoses Septic olecranon bursitis of right elbow M71.121 Hyperglycemia R73.9 Morbid obesity E66.01
[2019-11-27] MEDS: oxyCODONE IR 30 mg Tablet 15 MG PO ×2 (16:17→19:59)
[2019-11-28] VITALS (8 sets, daily range): BP systolic 95–143; BP diastolic 58–73; PULSE 77–90; RESP 18–20; TEMP 36.5–37.1; O2SAT 96–97
[2019-11-28] MEDS: oxyCODONE IR 30 mg Tablet 15 MG PO ×3 (00:15→12:09)
[2019-11-28] MEDS: vancomycin 1,000 MG in sodium chloride 0.9% 250 ML 250 MG IV ×2 (00:17→08:52)
[2019-11-28 06:46] LABS: Basophils % 0.3 %; Hematocrit 38.3 % (42.0-52.0); Hemoglobin 11.6 g/dL (11.7-16.6); Lymphocytes % 8.6 %; Mean Corpuscular HGB Conc 30.3 g/dL (30.0-36.0); Mean Corpuscular Hemoglobin 28.4 pg (28.0-34.0); Mean Corpuscular Volume 93.6 fL (80-94); Mean Platelet Volume 9.4 fL (7.4-10.4); Monocytes # 0.7 10^3/uL (0.2-0.9); Monocytes % 6.5 %; Neutrophils # 9.61 10^3/uL (1.8-7.7); Neutrophils % 83.7 %; Nucleated Red Blood Cells % 0 %; Platelet Count 342 10^3/cmm (130-400); Red Blood Count 4.09 10^6/uL (4.1-5.3); Red Cell Distribution Width 17.7 % (12.1-15.1); White Blood Count 11.5 10^3/uL (4.0-10.0)
[2019-11-28 06:55] LABS: Alanine Aminotransferase 25 U/L (0-41); Albumin Level 3.6 g/dL (3.5-5.2); Alkaline Phosphatase 60 IU/L (40-130); Anion Gap 14.1 (5-19); Aspartate Amino Transferase 20 U/L (0-40); Blood Urea Nitrogen 29 mg/dL (6-20); Carbon Dioxide 24 mmol/L (22-29); Chloride 102 mmol/L (98-107); Globulin 3.1 g/dL (1.3-4.6); Glomerular Filtration Rate 56.5 mL/min (90-130); Glucose 171 mg/dL (65-115); Osmolality Calculated 283 mOsm/kg (285-295); Potassium 4.1 mmol/L (3.5-5.1); Sodium 136 mmol/L (136-145); Total Bilirubin 0.2 mg/dL (0.15-1.2); Total Protein 6.7 g/dL (6.6-8.7)
[2019-11-28] MEDS: amlodipine 5 mg Tablet PO (08:53)
[2019-11-28] MEDS: losartan 50 mg Tablet 100 MG PO (08:53)
[2019-11-28] MEDS: ascorbic acid 500 mg Tablet 1000 MG PO (08:53)
--- NOTE | 2019-11-28 10:48 | PC.NURSE ---
Patient refused to let the BUILDING MAINTENANCE TECHNICIAN take blood pressure. Stated he was not doing them because he had an IV in one arm and the other arm wrapped up.
--- NOTE | 2019-11-28 10:57 | P.DS_ITS ---
Discharge Providers Date of Admission: 11/26/19 19:45 Date of Discharge: November 28, 2019 Attending Provider at Admission: Mike Acosta MD Attending Provider at Discharge: Rosi Flores MD Primary Care Provider: Bj Casey NP Diagnoses at Discharge Discharge Diagnosis (1) Septic olecranon bursitis of right elbow: Status: Acute (2) Hyperglycemia: Status: Acute Problem details: Denies diabetes, but is on medication for this. (3) Morbid obesity: Status: Acute Reason for Visit Reason for Visit: RIGHT ELBOW SWELLING Hospital Course Discharge Summary: Robert Kapoor is a 59 year old male presented to the emergency department with right elbow swelling and draining. He reports the olecranon bursa has been swollen for years, but about 10 days ago he fell and then had further repeated injuries against a wall, etc. He presented to ER when it started to drain white pus. He reports no fevers. He was evaluated by the orthopedic service and then was taken to the OR where he underwent excision of the infected right olecranon bursa. Per op notes patient was noted to have purulent tissue in the superficial olecranon bursa. There was also dense scarring of the bursa over an area of a few centimeter. No deep bony involvement was noted. Patient tolerated this procedure well and is doing well postoperatively. His sutures have been examined and there is no gross surrounding cellulitic changes. There continues to be some oozing of blood from around the suture sites but otherwise the surrounding area appears to be healing. Unfortunately there are no cell counts or other studies available from the fluid. Cultures were sent both from the ER and then again from the OR. Thus far the Gram stain shows a few gram-positive rods and WBCs but final cultures remain pending. Presuming infectious olecranon bursitis, we will discharge patient today on empiric antibiotic course of oral Keflex and doxycycline, the latter for maintaining MRSA coverage.. Patient denies the use of Bactrim because of side effect wherein he gets severe intertrigo. Would like to use linezolid ideally, however it has significant interactions with his right Tavo and can be associated with dangerous side effects such as hypertensive emergency arrhythmias etc. For now we have decided to use the combination of Keflex and doxycycline. I will follow him in the infectious disease clinic on Tuesday after he has seen Dr. Sushil in follow-up. If at that time it appears that his condition may be worsening or in the interim if he develops any high- grade fever chills or other overt signs of infections, he is instructed to return to the ED and will likely need 14 days of IV antibiotics. Final culture results will also be followed up at this time. Patient is encouraged to follow with a neurologist, he declines to see 1 locally and is encouraged to go to [place] for the same for evaluation of his CIDP. It appears he is on very high doses of dexamethasone and appears to take it for duration of 2 to 3 weeks at a time, however it would be best to obtain an expert assessment . He has been referred by his PCP and is encouraged to follow up. As long as he remains on high-dose of steroids he does remain at a higher risk of developing recurrent bursitis. He is instructed to also keep an arm in a sling as advised by orthopedics, change dressings daily, instructions have been provided. Physical Exam Narrative: EXAM NARRATIVE: GEN: Awake, alert and oriented, no acute distress CVS: S1S2 N RS: CTA B/L except crackles over RUL Abd: Soft, nt/nd , bs+ CONTACT LENS BLOCKER: no focal neuro deficits Discharge Data Data Completed and Pending: Completed Studies During Hospitalization Category Date Time Status CT elbow RT w con [id number] Urgent Cat Scan 11/26/19 16:37 Completed Pending at discharge Category Date Time Status Anaerobic Culture Routine Lab 11/27/19 13:05 Results Blood Culture Sta t Lab 11/26/19 15:05 Results Wound Culture and Gram Stain Routin e Lab 11/27/19 13:05 Results Wound Culture and Gram Stain Stat Lab 11/26/19 14:50 Results Pathology: Surgic al [PTH] Routine Pth 11/27/19 13:39 Ordered Labs from last 24 hours 11/28/19 11/28/19 11/27/19 06:29 06:29 14:55 WBC 11.5 H RBC 4.09 L Hgb 11.6 L Hct 38.3 L MCV 93.6 MCH 28.4 MCHC 30.3 RDW 17.7 H Plt Count 342 MPV 9.4 Neut % (Auto) 83.7 Lymph % (Auto) 8.6 [place] % (Auto) 6.5 Eos % (Auto) 0.0 Baso % (Auto) 0.3 Neut # (Auto) 9.61 H Lymph # (Auto) 1.0 [place] # (Auto) 0.7 Eos # (Auto) 0.0 Baso # (Auto) 0.0 Nucleated RBC % (a uto) 0 Nucleated RBCs # 0.0 Sodium 136 Potassium 4.1 Chloride 102 Carbon Dioxide 24 Anion Gap 14.1 BUN 29 H Creatinine 1.3 H GFR Calculation 56.5 L Glucose 171 H Calculated Osmolal ity 283 L Calcium 9.0 Total Bilirubin 0.2 AST 20 ALT 25 Alkaline Phosphata se 60 Total Protein 6.7 Albumin 3.6 Globulin 3.1 Vancomycin Trough 10.3 Vitals: Last Vital Signs Temp 98.2 F 11/28/19 10:46 Pulse 79 11/28/19 10:46 Resp 20 H 11/28/19 10:46 BP 126/73 11/28/19 08:53 Pulse Ox 97 11/28/19 10:46 Discharge Plan Discharge Patient Disposition: Home Condition: Stable Prescriptions: New mupirocin 2 % Ointment 1 applic topical DAILY Qty: 0 RF: 0 chlorhexidine gluconate [Betasept Surgical Scrub] 4 % Liquid 1 applic topical DAILY Qty: 0 RF: 0 doxycycline hyclate 100 mg capsule 100 mg PO BID 14 Days Qty: 28 RF: 0 cephalexin [Keflex] 500 mg capsule 1,000 mg PO BID 14 Days Qty: 28 RF: 0 Continued aspirin 325 mg tablet 325 mg PO DAILY PRN (Reason: fever or pain) RF: 0 oxycodone 30 mg tablet See Rx Instructions .ROUTE .COMPLEX PRN (Reason: Pain) RF: 0 propranolol 40 mg tablet 40 mg PO BID PRN (Reason: prn) RF: 0 losartan 100 mg tablet 100 mg PO DAILY RF: 0 furosemide 40 mg tablet 40 mg PO BID PRN (Reason: edema) RF: 0 gensing 250 mg capsule 250 mg PO DAILY RF: 0 magnesium 250 mg 250 mg PO DAILY PRN (Reason: with lasix) RF: 0 metformin 500 mg tablet 1,000 mg PO BID RF: 0 potassium 99 mg capsule 99 mg PO DAILY PRN (Reason: w/lasix) RF: 0 probiotic with pectin 323 mg 323 mg PO DAILY RF: 0 zinc 50 mg tablet 50 mg PO DAILY RF: 0 testosterone cypionate [Depo-Testosterone] 200 mg/mL oil 200 mg IM Q14D RF: 0 Jardiance 10 mg tablet 25 mg PO DAILY RF: 0 amlodipine 5 mg Tablet 5 mg PO DAILY RF: 0 Vitamin C 500 mg Tablet 1,000 mg PO DAILY RF: 0 Ritalin 20 mg tablet 10 mg PO Q4H RF: 0 Discontinued ibuprofen 400 mg tablet 800 mg PO BID PRN (Reason: fever or pain) RF: 0 cephalexin 500 mg Capsule 500 mg PO QID RF: 0 dexamethasone 4 mg Tablet 12 mg PO DAILY RF: 0 Discharge Orders: Discharge Order (Routine); Ordered 11/28/19 Ordered By: Kamran Ling Referrals: Rosi Flores MD [Hospitalist] - 12/04/19 1:00 pm ([phone] rn surgical p[facility] clinic) Bj Casey NP [Primary Care Provider] - 12/05/19 2:00 pm Kamran Ling MD [Physician] - 12/04/19 10:30 am Discharge Diet: Diabetic Discharge Activity: Resume usual activity Patient Instructions: Bursitis - Elbow, Wound Healing and Your Diet (DC) Activity Restrictions/Additional Instructions: Change dressing daily as instructed. Leave arm in sling. Change dressing daily, apply mupirocin with gloved hands or thoroughly washed hands (with soap) prior to application over suture line. Use hibiclens to wash right arm at bath time. Change dressing AFTER showering Discharge Attestations Time Spent in Discharge Care*: greater than 30 min Quality Metrics Clinical Quality Measures During this hospital stay, did patient experience: None Coding Level of Care Code Acute Rack Cleaner for [facility] Fwd Diagnoses Septic olecranon bursitis of right elbow M71.121 Hyperglycemia R73.9 Morbid obesity E66.01
== END 2019-11-28 17:00 | disposition home or self-care (01) | DRG 501 ==
LOC: ER 19:51 → MEDSURG 20:28
PROVIDERS: Emergency Medicine; Orthopaedic Surgery; Physician Assistant; Admitting Provider Internal Medicine; PCP Nurse Practitioner Family; Visit Provider Student in an Organized Health Care Education/Training Program
PROC: 0MB30ZZ Excision of Right Elbow Bursa and Ligament, Open Approach (ICD-10-PCS; principal; 2019-11-27 07:55)
DX: M71.121 Other infective bursitis, right elbow (principal); G61.81 Chronic inflammatory demyelinating polyneuritis; Z68.43 Body mass index [BMI] 50.0-59.9, adult; Z86.14 Personal history of Methicillin resistant Staphylococcus aureus infection; F90.2 Attention-deficit hyperactivity disorder, combined type; N45.1 Epididymitis; F60.81 Narcissistic personality disorder; F43.10 Post-traumatic stress disorder, unspecified; Z87.891 Personal history of nicotine dependence; F12.90 Cannabis use, unspecified, uncomplicated; E11.22 Type 2 diabetes mellitus with diabetic chronic kidney disease; I12.9 Hypertensive chronic kidney disease with stage 1 through stage 4 chronic kidney disease, or unspecified chronic kidney disease; N18.2 Chronic kidney disease, stage 2 (mild); E66.01 Morbid (severe) obesity due to excess calories; G47.33 Obstructive sleep apnea (adult) (pediatric); E29.1 Testicular hypofunction; Z89.512 Acquired absence of left leg below knee; Z89.511 Acquired absence of right leg below knee; F32.9 Major depressive disorder, single episode, unspecified; G89.29 Other chronic pain; Z79.891 Long term (current) use of opiate analgesic; Z79.84 Long term (current) use of oral hypoglycemic drugs
CPT/HCPCS: 12345; 36415; 36416; 64417; 73201; 76942; 80048; 80053; 80202; 82962; 83036; 84443; 85025; 86140; 87040; 87070; 87075; 87205; 88309; 93005; 96372; 96374; 96375; 99283; G0378; J1100; J1815; J2250; J2543; J2704; J2795; J3010; J3370; J7030; J7050; Q9967

== ENCOUNTER 2019-12-07 11:44 | Outpatient (RCR) | payer MEDICARE, SELFPAY ==
[2019-12-05 15:07] LABS: Testosterone Total 309.3 ng/dL (193-740)
[2019-12-06 12:12] LABS: Testosterone Total 243.2 ng/dL (193-740)
[2019-12-07 13:10] LABS: Testosterone Total 229.7 ng/dL (193-740)
[2019-12-11 19:16] LABS: Testosterone, Free 32.7 pg/mL (46.0-224.0)
== END 2019-12-24 23:59 | disposition home or self-care (01) ==
LOC: LAB 11:44
PROVIDERS: PCP Nurse Practitioner Family; Visit Provider Nurse Practitioner Family
DX: E29.1 Testicular hypofunction (principal)
CPT/HCPCS: 36415; 84402; 84403

== ENCOUNTER 2019-12-16 18:51 | Emergency (ER) | payer MEDICARE, SELFPAY ==
[2019-12-16 20:01] VITALS: BP 138/72; PULSE 77; RESP 18; TEMP 36.6; O2SAT 97; BMI 46.2
[2019-12-16 21:07] VITALS: BP 146/67; PULSE 77; RESP 18; O2SAT 96
--- NOTE | 2019-12-16 21:38 | US_ITS ---
WS: [id number] INDICATION: Right elbow pain and swelling TECHNIQUE: Ultrasound right elbow FINDINGS: Ultrasound right elbow soft tissue. Soft tissues are normal in appearance. No evidence of a bscess or drainable fluid collection. US/US soft tissue/extremity [id number] IMPRESSION: No fluid collection or abscess.
[2019-12-16 22:04] LABS: Basophils # 0.1 10^3/uL (0.0-0.1); Basophils % 1.2 %; Eosinophils # 0.3 10^3/uL (0.0-0.8); Eosinophils % 4.9 %; Hematocrit 45.8 % (42.0-52.0); Hemoglobin 13.6 g/dL (11.7-16.6); Lymphocytes # 1.9 10^3/uL (0.8-4.8); Lymphocytes % 28.5 %; Mean Corpuscular HGB Conc 29.7 g/dL (30.0-36.0); Mean Corpuscular Volume 90.9 fL (80-94); Mean Platelet Volume 9.5 fL (7.4-10.4); Monocytes # 0.6 10^3/uL (0.2-0.9); Monocytes % 9.4 %; Neutrophils # 3.63 10^3/uL (1.8-7.7); Neutrophils % 55.7 %; Nucleated Red Blood Cells % 0 %; Platelet Count 230 10^3/cmm (130-400); Red Blood Count 5.04 10^6/uL (4.1-5.3); Red Cell Distribution Width 16.4 % (12.1-15.1); White Blood Count 6.5 10^3/uL (4.0-10.0)
[2019-12-16 22:07] VITALS: BP 136/68; PULSE 72; RESP 18; O2SAT 96
--- NOTE | 2019-12-16 22:25 | W.ED.SKABFB ---
HPI - Skin/Abscess/Foreign Bdy General: Chief complaint: Skin/Abscess/Foreign Body Stated complaint: right elbow infection Time Seen by Provider: 12/16/19 21:18 History of Present Illness: HPI narrative: 59-year-old gentleman who is postoperative from a debridement of a right-sided olecranon bursa following what presented a septic olecranon bursitis couple of weeks ago. He presents with redness, swelling, and warmth over the area with some opening of his incision. There is been an increase in the drainage. He has not had a fever, or been systemically sick any other way. He has had a bit more pain there the last 24 hours. MD complaint: rash Onset (ago): day(s) Tetanus up to date: yes Location: RUE (Posterior elbow) Severity: moderate Quality: aching Pain Consistency: constant Exacerbating factors: movement Associated symptoms: Deny fever(s), nausea or vomiting Review of Systems Const: Denies: fever(s) Eyes: Denies: change in vision or blurry vision ENMT: Denies: swelling of lips/tongue or sinus pain Card: Denies: chest pain, palpitations or irregular heart rhythm Resp: Denies: dyspnea, productive cough, non-productive cough or wheezing GI: Denies: nausea or vomiting : Denies: difficulty urinating Musc: Denies: joint redness Skin/Breast: Denies: rash or erythema Neuro: Denies: headache(s), dizziness or vertigo Psych: Denies: anxiety PFSH ED PFSH: Medical History (Updated 12/16/19 @ 22:32 by Sridhar Crow DO) Attention-deficit hyperactivity disorder, combined type Chronic epididymitis Chronic kidney disease, stage II (mild) CIDP (chronic inflammatory demyelinating polyneuropathy) Reports he takes dexamethasone intermittently when symptoms flare Epididymitis History of coronary angiogram Hyperglycemia Denies diabetes, but is on medication for this. Hypertension Major depressive disorder, recurrent, in full remission Morbid obesity Narcissistic personality disorder Obstructive sleep apnea Post traumatic stress disorder Prinzmetal's angina Right groin pain Testosterone deficiency Surgical History H/O carpal tunnel repair bilateral H/O sinus surgery deviated septum History of tonsillectomy History of total left knee replacement Status post bilateral below knee amputation Left side, reports secondary to fracture causing reduced blood supply Family History Mother , at age 85 No problems noted. Father , at age 75 Cancer skin, prostate Social History Smoking and tobacco status: former smoker Adopted: No Caregiver/support person: No Lives independently: No Household members: spouse Marital status: Current occupational status: disabled History of recent travel: No Current gender identity: Male Physical Exam Const: GENERAL APPEARANCE: well developed ORIENTATION/CONSCIOUSNESS: Yes oriented to person, Yes oriented to place and Yes oriented to time HENMT: COMMON NORMALS: normocephalic, external ears normal and Normal external nose present HEAD & SCALP: normocephalic FACE & SINUS: normal facial exam NOSE: Normal external nose present and No nasal discharge present EXTERNAL EAR: Yes external ears normal THROAT: posterior oropharynx normal; no peritonsillar mass Eye: COMMON NORMALS: Equal, round and reactive pupils present, EOMs intact bilaterally and conjunctivae normal EYELID: eyelids normal CONJUNCTIVA: Yes conjunctivae normal PUPIL: Yes Equal, round and reactive pupils present Neck/C-Spine: GENERAL: No tracheal deviation Chest: COMMONS NORMALS: normal inspection of the chest CHEST: No tenderness Resp: COMMON NORMALS: clear to auscultation bilaterally EFFORT & INSPECTION: No tachypneic, No respiratory distress, No retractions, No uses accessory muscles and No tracheal deviation AUSCULTATION: clear to auscultation bilaterally, no rhonchi, no wheezes and lung sounds not diminished Cardio: COMMON NORMALS: regular rate and regular rhythm RATE: regular rate RHYTHM: regular rhythm HEART SOUNDS: no murmurs PERIPHERAL PULSES: radial pulses present GI: INSPECTION: No abdominal distension AUSCULTATION: No Hyperactive bowel sounds present and No Hypoactive bowel sounds present PALPATION: No Guarding due to palpation present (GI) and No Rigid due to palpation PERCUSSION: no dullness to percussion and no tympanic to percussion Extremity: NARRATIVE EXTREMITY EXAM: Examination of the right upper extremity reveals mild limitation in flexion of the elbow as well as extension due to discomfort, and tightness. There is erythema posteriorly over the olecranon. There is slight swelling. There does not appear to be a fluctuant fluid collection. Incision shows 2 tiny open areas without active purulent drainage. It is warm to the touch. Neuro: SENSORIUM/ORIENTATION: Yes oriented to person, Yes oriented to place and Yes oriented to time Psych: COMMON NORMALS: mental status grossly normal Course Consultations: Consultation #1: Sushil Vital Signs: Vital signs: Vital Signs Temperature 97.8 F 12/16/19 20:01 Pulse Rate 72 12/16/19 23:29 Respiratory Rate 18 12/16/19 23:29 Blood Pressure 127/62 12/16/19 23:29 Pulse Oximetry 97 12/16/19 23:29 MDM - Skin/Abscess/Foreign Bdy MDM Narrative: Medical decision making narrative: 59-year-old male who is postoperative from appear to be a septic olecranon bursa. Evidently, his cultures never grew an organism. He had been taking doxycycline, and is almost out. White blood cell count is normal. There is no elevation in CRP. Elevation in sed rate is minimal, and may be from obesity. There is no active drainage. He is given 1250 mg of vancomycin here. He will be placed on clindamycin for the next 10 days to cover. He will follow-up for wound check. Lab Data: Labs: Lab Results 12/16/19 12/16/19 12/16/19 Range/Units 21:55 21:55 21:55 WBC 6.5 (4.0-10.0) 10^3/ uL RBC 5.04 (4.1-5.3) 10^6/u L Hgb 13.6 (11.7-16.6) g/dL Hct 45.8 (42.0-52.0) % MCV 90.9 (80-94) fL MCH 27.0 L (28.0-34.0) pg MCHC 29.7 L (30.0-36.0) g/dL RDW 16.4 H (12.1-15.1) % Plt Count 230 (130-400) 10^3/c mm MPV 9.5 (7.4-10.4) fL Neut % (Auto) 55.7 % Lymph % (Auto) 28.5 % [place] % (Auto) 9.4 % Eos % (Auto) 4.9 % Baso % (Auto) 1.2 % Neut # (Auto) 3.63 (1.8-7.7) 10^3/u L Lymph # (Auto) 1.9 (0.8-4.8) 10^3/u L [place] # (Auto) 0.6 (0.2-0.9) 10^3/u L Eos # (Auto) 0.3 (0.0-0.8) 10^3/u L Baso # (Auto) 0.1 (0.0-0.1) 10^3/u L Nucleated RBC % (a uto) 0 % Nucleated RBCs # 0.0 /100WBC ESR 35 H (0-10) mm/hr Sodium 142 (136-145) mmol/L Potassium 4.4 (3.5-5.1) mmol/L Chloride 104 (98-107) mmol/L Carbon Dioxide 25 (22-29) mmol/L Anion Gap 17.4 (5-19) BUN 17 (6-20) mg/dL Creatinine 1.2 (0.7-1.2) mg/dL GFR Calculation 62.0 L (90-130) mL/min Glucose 157 H (65-115) mg/dL Calculated Osmolal ity 294 (285-295) mOsm/k g Calcium 9.2 (8.5-10.5) mg/dL Total Bilirubin 0.3 (0.15-1.2) mg/dL AST 27 (0-40) U/L ALT 46 H (0-41) U/L Alkaline Phosphata se 66 (40-130) IU/L C-Reactive Protein 2.4 (0.0-4.9) mg/L Total Protein 7.3 (6.6-8.7) g/dL Albumin 4.0 (3.5-5.2) g/dL Globulin 3.3 (1.3-4.6) g/dL Discharge Plan Discharge Patient Disposition: Home Clinical Impression: Cellulitis Qualifiers: Site of cellulitis: extremity Site of cellulitis of extremity: upper extremity Laterality: right Qualified Code(s): L03.113 - Cellulitis of right upper limb Condition: Stable Prescriptions: No Action aspirin 325 mg tablet 325 mg PO DAILY PRN (Reason: fever or pain) RF: 0 oxycodone 30 mg tablet See Rx Instructions .ROUTE .COMPLEX PRN (Reason: Pain) RF: 0 propranolol 40 mg tablet 40 mg PO BID PRN (Reason: prn) RF: 0 losartan 100 mg tablet 100 mg PO DAILY RF: 0 furosemide 40 mg tablet 40 mg PO BID PRN (Reason: edema) RF: 0 gensing 250 mg capsule 250 mg PO DAILY RF: 0 magnesium 250 mg 250 mg PO DAILY PRN (Reason: with lasix) RF: 0 metformin 500 mg tablet 1,000 mg PO BID RF: 0 potassium 99 mg capsule 99 mg PO DAILY PRN (Reason: w/lasix) RF: 0 probiotic with pectin 323 mg 323 mg PO DAILY RF: 0 zinc 50 mg tablet 50 mg PO DAILY RF: 0 testosterone cypionate [Depo-Testosterone] 200 mg/mL oil 200 mg IM Q14D RF: 0 Jardiance 10 mg tablet 25 mg PO DAILY RF: 0 mupirocin 2 % ointment 1 applic topical DAILY Qty: 22 RF: 0 amlodipine 5 mg Tablet 5 mg PO DAILY RF: 0 Vitamin C 500 mg Tablet 1,000 mg PO DAILY RF: 0 Ritalin 20 mg tablet 10 mg PO Q4H RF: 0 Betasept Surgical Scrub 4 % Liquid 1 applic topical DAILY Qty: 0 RF: 0 Discharge Orders: Discharge Order (Routine); Ordered 12/16/19 Ordered By: Sridhar Crow Referrals: Bj Casey NP [Primary Care Provider] - Kamran Ling MD [Physician] - 1-3 days Discharge Diet: Usual diet Discharge Activity: Increase activity as tolerated Patient Instructions: Cellulitis (ED) Activity Restrictions/Additional Instructions: Continue your doxycycline at home. Return for fever greater than 100, vomiting liquids or medications, spreading redness or streaking up the arm despite treatment. Continue to keep covered and monitor drainage. Follow-up with your orthopedic surgeon next week for a wound check. Discharge Date/Time: 12/16/19 23:33 Coding Level of Care Code ED Binding [employer] for Hua Brewer
[2019-12-16 22:31] LABS: Alanine Aminotransferase 46 U/L (0-41); Alkaline Phosphatase 66 IU/L (40-130); Anion Gap 17.4 (5-19); Aspartate Amino Transferase 27 U/L (0-40); Blood Urea Nitrogen 17 mg/dL (6-20); C Reactive Protein 2.4 mg/L (0.0-4.9); Calcium 9.2 mg/dL (8.5-10.5); Carbon Dioxide 25 mmol/L (22-29); Chloride 104 mmol/L (98-107); Globulin 3.3 g/dL (1.3-4.6); Glucose 157 mg/dL (65-115); Osmolality Calculated 294 mOsm/kg (285-295); Potassium 4.4 mmol/L (3.5-5.1); Sodium 142 mmol/L (136-145); Total Bilirubin 0.3 mg/dL (0.15-1.2); Total Protein 7.3 g/dL (6.6-8.7)
[2019-12-16 22:50] LABS: Erythrocyte Sedimentation Rate 35 mm/hr (0-10)
[2019-12-16 23:27] VITALS: BP 128/61; PULSE 73; RESP 18; O2SAT 98
[2019-12-16 23:29] VITALS: BP 127/62; PULSE 72; RESP 18; O2SAT 97
--- NOTE | 2019-12-19 08:16 | DCPLANNER ---
manager completions had message to schedule a follow up appointment for patient with ortho. manager completions called the ortho clinic, spoke with Marissa, gave clinic patients information. manager completions was told that patients information would be printed and reviewed. Clinic will call patient with appointment information.
--- NOTE | 2019-12-20 11:42 | DCPLANNER ---
Patient had a follow up appointment scheduled for 12.18.19 with ortho - patient did attend the appointment.
== END 2019-12-16 23:33 | disposition home or self-care (01) ==
PROVIDERS: Emergency Provider Emergency Medicine; PCP Nurse Practitioner Family
DX: L03.113 Cellulitis of right upper limb (principal); Z79.82 Long term (current) use of aspirin; I12.9 Hypertensive chronic kidney disease with stage 1 through stage 4 chronic kidney disease, or unspecified chronic kidney disease; N18.2 Chronic kidney disease, stage 2 (mild); Z87.891 Personal history of nicotine dependence
CPT/HCPCS: 12345; 76882; 80053; 85025; 85651; 86140; 96365; 99282; 99283; J3370; J7050

== ENCOUNTER 2020-01-04 08:15 | Outpatient (CLI) | payer MEDICARE, SELFPAY | END 2020-01-04 08:16 | disposition home or self-care (01) | LOC: WOUND 08:18 | PROVIDERS: PCP Nurse Practitioner Family; Visit Provider Surgery | DX: T81.31XA Disruption of external operation (surgical) wound, not elsewhere classified, initial encounter (principal); Y83.8 Other surgical procedures as the cause of abnormal reaction of the patient, or of later complication, without mention of misadventure at the time of the procedure | CPT/HCPCS: 11042; G0463; L2999 ==

== ENCOUNTER 2020-01-06 03:22 | Inpatient (IN) | payer MEDICARE, SELFPAY ==
[2020-01-06] VITALS (7 sets, daily range): BP systolic 100–155; BP diastolic 56–90; PULSE 69–88; RESP 16–18; TEMP 36.6–37; O2SAT 95–97; BMI 47.4
--- NOTE | 2020-01-06 03:23 | ED_ITS ---
HPI - General Adult General: Chief complaint: Extremity Injury, Upper Stated complaint: direct admit Time Seen by Provider: 01/06/20 03:23 Source: patient Mode of arrival: ambulatory Limitations: no limitations History of Present Illness: HPI narrative: Mr. Kapoor is a 59-year-old male who is supposed to be a direct admit for right elbow cellulitis and osteomyelitis. Patient came by private vehicle here. His note from [employer] and [facility] will be scanned as a part of this note so please see his medical work-up from there. Patient came to the ER to be screened for the COVID-19 virus. Patient has no history of upper respiratory symptoms, cough, sore throat, shortness of breath, fever or other upper respiratory or COVID-19 type complaint. Associated symptoms: Deny chest pain, dyspnea, headache(s), nausea, rash, palpitations, syncope or vomiting Review of Systems Const: Denies: fever(s) Eyes: Denies: change in vision or blurry vision ENMT: Denies: throat pain, hoarseness or swelling of lips/tongue Card: Denies: chest pain, palpitations, syncope, pre-syncope or dyspnea on exertion Resp: Denies: dyspnea, productive cough, non-productive cough, wheezing, change in phlegm color or hemoptysis GI: Denies: abdominal pain, nausea, vomiting or diarrhea : Denies: flank pain, dysuria, urinary frequency or urinary urgency Musc: Reports: extremity pain and joint pain; Denies: neck pain or back pain Skin/Breast: Reports: erythema; Denies: rash or pruritus Neuro: Denies: headache(s), numbness in extremities, weakness in extremities or dizziness Chidi/Lymph: Denies: easy bruising, easy bleeding, petechiae or purpura All/Imm: Denies: urticaria or throat swelling PFSH ED PFSH: Medical History Attention-deficit hyperactivity disorder, combined type Chronic epididymitis Chronic kidney disease, stage II (mild) CIDP (chronic inflammatory demyelinating polyneuropathy) Reports he takes dexamethasone intermittently when symptoms flare Epididymitis History of coronary angiogram Hyperglycemia Denies diabetes, but is on medication for this. Hypertension Major depressive disorder, recurrent, in full remission Morbid obesity Narcissistic personality disorder Obstructive sleep apnea Post traumatic stress disorder Prinzmetal's angina Right groin pain Testosterone deficiency Surgical History H/O carpal tunnel repair bilateral H/O sinus surgery deviated septum History of tonsillectomy History of total left knee replacement Status post bilateral below knee amputation Left side, reports secondary to fracture causing reduced blood supply Family History Mother , at age 85 No problems noted. Father , at age 75 Cancer skin, prostate Social History Smoking and tobacco status: former smoker Adopted: No Caregiver/support person: No Lives independently: No Household members: spouse Marital status: Current occupational status: disabled History of recent travel: No Current gender identity: Male Physical Exam Const: COMMON NORMALS: no acute distress, patient oriented x3, no limitations and alert GENERAL APPEARANCE: cooperative HENMT: COMMON NORMALS: normocephalic, atraumatic, external ears normal, EAC's normal and Normal external nose present HEAD & SCALP: normal to inspection, normocephalic and atraumatic FACE & SINUS: normal facial exam and face symmetric NOSE: Normal external nose present and Normal nares present EXTERNAL EAR: Yes external ears normal EXTERNAL AUDITORY CANAL: EAC's normal MOUTH: Normal oral and palatal mucosa present, lip normal and tongue normal Eye: COMMON NORMALS: Equal, round and reactive pupils present and conjunctivae normal GENERAL EYE: appearance normal, both eyes and all related structures ALIGNMENT: Yes alignment normal PERIORBITAL: periorbital findings normal EYELID: eyelids normal CONJUNCTIVA: Yes conjunctivae normal SCLERA: sclerae normal PUPIL: Yes Equal, round and reactive pupils present Neck/C-Spine: COMMON NORMALS: full ROM, no lymphadenopathy, supple, no meningeal signs and no JVD GENERAL: Yes normal visual inspection and Yes trachea midline Chest: COMMONS NORMALS: normal inspection of the chest and normal palpation of entire chest wall Resp: COMMON NORMALS: normal respiratory effort, No retractions, No use of accessory muscles and clear to auscultation bilaterally EFFORT & INSPECTION: Yes able to speak in complete sentences and Yes symmetric chest movement AUSCULTATION: clear to auscultation bilaterally, no crackles, no rales, no rhonchi and no wheezes Cardio: COMMON NORMALS: no JVD, regular rate, regular rhythm, S1 normal heart sound present and S2 normal heart sound present RATE: regular rate RHYTHM: regular rhythm HEART SOUNDS: S1 normal heart sound present, S2 normal heart sound present, no click, no gallops, no murmurs and no rubs GI: COMMON NORMALS: Soft to palpation and No hepatosplenomegaly present PALPATION: Yes Soft to palpation, No Tenderness to palpation present (GI), No Guarding due to palpation present (GI), No Rigid due to palpation, Yes No hepatosplenomegaly present, No Hernia present, No Palpable mass present and No Pulsatile mass present : COMMON NORMALS: Yes no CVA tenderness BLADDER/KIDNEY EXAM: Yes no CVA tenderness Back/Pelvis: COMMON NORMALS: no CVA tenderness, thoracic and lumbar spine normal to inspection, no thoracic nor lumbar tenderness and thoraco-lumbar ROM normal Extremity: COMMON NORMALS: full ROM, capillary refill normal, no joint enlargement, no clubbing, cyanosis or edema and no calf tenderness Neuro: COMMON NORMALS: patient oriented x3, CN's II-XII intact bilaterally, moves all extremities, no focal motor deficits and no sensory deficits noted SENSORIUM/ORIENTATION: Yes alert MENINGEAL SIGNS: Yes no meningeal signs SPEECH: speech normal Psych: COMMON NORMALS: mental status grossly normal, Normal thought process present, cooperative, normal affect, speech normal and activity/motor behavior normal SPEECH: Yes normal speech THOUGHT PROCESS: Normal thought process present Skin: COMMON NORMALS: no rashes or lesions noted, turgor normal, no jaundice, no petechiae and no mottling GENERAL SKIN EXAM: no rashes or lesions noted and turgor normal Course Vital Signs: Vital signs: Vital Signs Temperature 97.9 F 01/06/20 03:28 Pulse Rate 88 01/06/20 03:28 Respiratory Rate 17 01/06/20 03:28 Blood Pressure 155/90 01/06/20 03:28 Pulse Oximetry 96 01/06/20 03:28 MDM - General Adult MDM Narrative: Medical decision making narrative: Patient has no sign or symptom here of COVID-19 virus. The case was reviewed with Dr. Bell, she agrees to go ahead and admit the patient and will place orders. Discharge Plan Discharge Patient Disposition: Admitted As Inpatient Clinical Impression: Osteomyelitis of arm Condition: Stable Prescriptions: No Action aspirin 325 mg tablet 325 mg PO DAILY PRN (Reason: fever or pain) RF: 0 oxycodone 30 mg tablet See Rx Instructions .ROUTE .COMPLEX PRN (Reason: Pain) RF: 0 losartan 100 mg tablet 100 mg PO DAILY RF: 0 furosemide 40 mg tablet 40 mg PO BID PRN (Reason: edema) RF: 0 gensing 250 mg capsule 250 mg PO DAILY RF: 0 magnesium 250 mg 250 mg PO DAILY PRN (Reason: with lasix) RF: 0 metformin 500 mg tablet 1,000 mg PO BID RF: 0 potassium 99 mg capsule 99 mg PO DAILY PRN (Reason: w/lasix) RF: 0 probiotic with pectin 323 mg 323 mg PO DAILY RF: 0 zinc 50 mg tablet 50 mg PO DAILY RF: 0 testosterone cypionate [Depo-Testosterone] 200 mg/mL oil 200 mg IM Q14D RF: 0 Jardiance 10 mg tablet 25 mg PO DAILY RF: 0 mupirocin 2 % ointment 1 applic topical DAILY Qty: 22 RF: 0 propranolol 40 mg tablet 40 mg PO BID PRN (Reason: anxiety) Qty: 60 RF: 2 amlodipine 5 mg Tablet 5 mg PO DAILY RF: 0 Vitamin C 500 mg Tablet 1,000 mg PO DAILY RF: 0 Ritalin 20 mg tablet 10 mg PO Q4H RF: 0 Betasept Surgical Scrub 4 % Liquid 1 applic topical DAILY Qty: 0 RF: 0 Referrals: Brice Luo MD [Primary Care Provider] - Coding Level of Care Code ED Radiological Engineer for Hua Brewer
--- NOTE | 2020-01-06 04:44 | P.HP_ITS ---
Providers/Chief Complaint Admitting Physician: Meghan Bell MD Primary Care Provider: Bj Casey NP Chief Complaint: RUE pain, swelling, redness History of Present Illness Robert Kapoor is a 59 year old male with PMHx noted below presents as transfer from [facility] where he presented earlier today with complaints of increased right upper extremity pain, swelling, redness. Earlier in the day he had been seen at the wound care clinic where he was noted to have what appeared to be cellulitis and had sharp debridement of the right elbow which is currently packed. He seems to be quite unhappy as he states that he has had issues with his right arm and in November was treated for septic olecranon bursitis for which he had excision of the infected bursa and was treated with a 2-week course of Keflex and doxycycline. Wound cultures at that time were negative. He had been following up with Dr. Flores at the infectious disease clinic and Dr. Ling as well. He reports repeated attempts to get into the wound care clinic and was finally seen yesterday. He seems to be quite unsatisfied with his treatment there and states that he does not want to return. He was seen at [facility], work-up there indicates leukocytosis with a white count of 12.4 with otherwise normal CBC, normal electrolytes, BUN of 26, creatinine of 1.3 which appears to be his baseline, blood glucose of 123, lactic acid of 2.0, normal LFTs. Blood pressure was slightly elevated but he was afebrile. Imaging indicates cellulitis of the right elbow and osteomyelitis of the olecranon. Per discussion with ER physician Dr. Frias, he discussed the case with general surgery and was referred to orthopedic surgery who did not recommend immediate intervention. He then discussed the case with me and agreed to direct admission due to concern for osteomyelitis and cellulitis particularly in light of his prior infection. He received a dose of clindamycin while at [facility]. Incidentally I had spoken to Dr. Frias much earlier in my shift and as patient had opted to come to our facility by private vehicle, understanding was that he would come straight here. However patient did not present to our facility until after 4 AM stating that he had dropped his at home and ended up falling asleep. He reports that redness particularly around the elbow improved once he had received clindamycin but seems to be returning, also had noted improved range of motion though continues to have significant swelling particularly of the hand. He has been screened for COVID-19, no testing done as he is asymptomatic. Discussed that we will go ahead and continue IV antibiotic treatment at this time and if need for surgical intervention we would likely consult orthopedic surgery. He is agreeable to the plan at this time and will be admitted to the floor. Review of Systems Const: Reports: malaise; Denies: fever(s) or chills Eyes: Denies: change in vision ENMT: Reports: dry mouth Card: Denies: chest pain, swelling of feet/ankles or lightheadedness Resp: Denies: dyspnea, productive cough or non-productive cough GI: Denies: abdominal pain, nausea, vomiting, hematemesis or hematochezia : Denies: dysuria Musc: Reports: extremity pain (RUE), extremity swelling (R hand), joint swelling (R elbow) and limited range of motion (R elbow and hand); Denies: back pain Skin/Breast: Reports: erythema, skin tenderness and other (open wound on R elbow); Denies: rash Neuro: Denies: numbness in extremities or weakness in extremities Psych: Denies: anxiety Medications/Allergies Home Medications Medication Instructions Recorded Confirmed Last Taken Type losartan 100 mg tablet 100 mg PO DAILY 06/25/19 12/18/19 11/26/19 History testosterone cypionate 200 mg/mL 200 mg IM Q14D 07/26/19 12/18/19 11/23/19 History intramuscular oil zinc 50 mg tablet 50 mg PO DAILY 07/26/19 12/18/19 11/26/19 History aspirin 325 mg tablet 325 mg PO DAILY PRN tab 11/09/19 12/18/19 11/26/19 History empagliflozin 10 mg tablet 25 mg PO DAILY 11/09/19 12/18/19 11/26/19 History furosemide 40 mg tablet 40 mg PO BID PRN tab 11/09/19 12/18/19 11/26/19 History gensing 250 mg PO DAILY 11/09/19 12/18/19 11/26/19 History magnesium 250 mg PO DAILY PRN 11/09/19 12/18/19 Unknown History metformin 500 mg tablet 1,000 mg PO BID tab 11/09/19 12/18/19 11/26/19 History oxycodone 30 mg tablet See Rx Instructions .ROUTE 11/09/19 12/18/19 11/26/19 History .COMPLEX PRN tab potassium 99 mg PO DAILY PRN 11/09/19 12/18/19 Unknown History probiotic with pectin 323 mg PO DAILY 11/09/19 12/18/19 11/26/19 History Ritalin 10 mg PO Q4H 11/26/19 12/18/19 11/26/19 History Vitamin C 1,000 mg PO DAILY 11/26/19 12/18/19 11/26/19 History amlodipine 5 mg PO DAILY 11/26/19 12/18/19 11/26/19 History chlorhexidine gluconate [Betasept 1 applic TOPICAL DAILY #0 ml 11/28/19 12/18/19 Unknown Rx Surgical Scrub] mupirocin 2 % topical ointment 1 applic TOPICAL DAILY #22 gm 12/04/19 12/18/19 Unknown Rx propranolol 40 mg tablet 40 mg PO BID PRN #60 tab 01/01/20 Unknown Rx Allergies Allergy/AdvReac Type Severity Reaction Status Date / Time Sulfa (Sulfonamide Allergy Intermediate Gives Verified 01/06/20 03:31 Antibiotics) bodywide yeast infection. steroids AdvReac Intermediate Affected Uncoded 12/04/19 12:45 body chemistry for about a month PFSH Acute PFSH: Medical History Attention-deficit hyperactivity disorder, combined type Chronic epididymitis Chronic kidney disease, stage II (mild) CIDP (chronic inflammatory demyelinating polyneuropathy) Reports he takes dexamethasone intermittently when symptoms flare Epididymitis History of coronary angiogram Hyperglycemia Denies diabetes, but is on medication for this. Hypertension Major depressive disorder, recurrent, in full remission Morbid obesity Narcissistic personality disorder Obstructive sleep apnea Post traumatic stress disorder Prinzmetal's angina Right groin pain Testosterone deficiency Surgical History H/O carpal tunnel repair bilateral H/O sinus surgery deviated septum History of tonsillectomy History of total left knee replacement Status post bilateral below knee amputation Left side, reports secondary to fracture causing reduced blood supply Family History Mother , at age 85 No problems noted. Father , at age 75 Cancer skin, prostate Social History Smoking and tobacco status: former smoker Adopted: No Caregiver/support person: No Lives independently: No Household members: spouse Marital status: Current occupational status: disabled History of recent travel: No Current gender identity: Male Vitals/I&O/Wt Last Vital Signs Temp 97.9 F 01/06/20 03:28 Pulse 88 01/06/20 04:03 Resp 17 01/06/20 03:28 BP 155/90 01/06/20 03:28 Pulse Ox 96 01/06/20 03:28 Weight last 48 hrs Weight 181.437 kg Physical Exam Const: COMMON NORMALS: no acute distress and patient oriented x3 GENERAL APPEARANCE: cooperative and comfortable NUTRITIONAL APPEARANCE: obese morbidly obese ORIENTATION/CONSCIOUSNESS: Yes awake HENMT: COMMON NORMALS: normocephalic, atraumatic, hearing grossly normal bilaterally and moist oral mucous membranes HEAD & SCALP: normocephalic and atraumatic Eye: COMMON NORMALS: Equal, round and reactive pupils present, EOMs intact bilaterally and conjunctivae normal CONJUNCTIVA: Yes conjunctivae normal PUPIL: Yes Equal, round and reactive pupils present Neck/C-Spine: COMMON NORMALS: full ROM GENERAL: Yes normal visual inspection and Yes trachea midline OTHER: -short, thick neck Resp: COMMON NORMALS: normal respiratory effort, No retractions, No use of accessory muscles and clear to auscultation bilaterally EFFORT & INSPECTION: Yes able to speak in complete sentences, Yes symmetric chest movement and No tachypneic AUSCULTATION: clear to auscultation bilaterally OTHER: -on RA Cardio: COMMON NORMALS: regular rate, regular rhythm, S1 normal heart sound present, S2 normal heart sound present and No murmurs present (Cardio) RATE: regular rate RHYTHM: regular rhythm HEART SOUNDS: S1 normal heart sound present and S2 normal heart sound present GI: COMMON NORMALS: Normal to inspection, nondistended, normoactive bowel sounds present, Soft to palpation and non-tender INSPECTION: Yes central obesity PALPATION: Yes Soft to palpation Extremity: NARRATIVE EXTREMITY EXAM: -RUE; non-pitting edema of hand and arm, redness and warmth around elbow, incision that is packed with gauze, decreased ROM, no fluctuance -s/p L BKA, prosthetic in place GENERAL: Yes amputation Neuro: COMMON NORMALS: patient oriented x3, moves all extremities, no focal motor deficits and no sensory deficits noted SENSORIUM/ORIENTATION: Yes alert Psych: COMMON NORMALS: mental status grossly normal, Normal thought process present, cooperative, normal affect and speech normal SPEECH: Yes normal speech THOUGHT PROCESS: Normal thought process present Skin: COMMON NORMALS: no rashes or lesions noted, no jaundice, no petechiae and no mottling GENERAL SKIN EXAM: no rashes or lesions noted Data Other Labs: -reviewed labs done at [facility] including leukocytosis with a white count of 12.4, hemoglobin of 14.4, normal electrolytes, BUN of 26, creatinine of 1.3, blood glucose of 123, lactic acid of 2.0 Other data: -Reviewed imaging report of CT scan (R elbow) indicating large complex collection with multiple radiopacities within the dorsal soft tissues measuring 2.8 x 5.9 x 11.0 cm, extends into the distal triceps tendon, consistent with cellulitis with direct extension of the infection into the distal triceps tendon and osteomyelitis of the olecranon A&P Assessment and plan (1) Osteomyelitis of arm: -Noted to have right upper extremity cellulitis with olecranon osteomyelitis per CT scan. Characterized by increased right upper extremity pain, swelling, redness and decreased range of motion -Recently treated for septic olecranon bursitis status post excision of the infected bursa (11/26) and treated with a course of oral antibiotics. He was seen by infectious disease and completed a course of Keflex and doxycycline. Wound cultures were negative -Seen at the wound care clinic yesterday and had sharp debridement, packing of wound recommendation made for CT scan determine if underlying infection or abscess formation, and to rule out possible osteomyelitis. Due to continued pain, swelling, redness particularly involving the forearm patient presented to [facility] ER. Received a dose of IV clindamycin. Labs done indicate leukocytosis with a white count of 12.4, neutrophilic predominance, otherwise normal CBC, normal electrolytes, lactic acid of 2.0. -Repeat labs today including inflammatory markers -CT scan report in chart -Per conversation with ER physician at [facility] he had ready spoken with general surgery who referred him to orthopedics, orthopedics did not recommend intervention at that time. He then spoke to me and due to concern for osteomyelitis based on scan and complicated course with prior infection involving the same extremity I agreed to direct admission. -Wound dressing changes daily, will use gauze packing -Close monitoring of vital signs -Neuro vascular checks, right upper extremity elevation -May require surgical intervention if not improving, worsening and continued suspicion for osteomyelitis -order blood cx -order US to determine if drainable abscess -for now will treat with broad spectrum IV antibiotics (Vancomycin, Zosyn) Status: Acute (2) Olecranon bursitis: -as noted above -s/p excision of infected bursa and oral antibiotic course Status: Resolved Qualifiers: Laterality: right Qualified Code(s): M70.21 - Olecranon bursitis, right elbow (3) Hyperglycemia: -Secondary to diabetes, last A1c in November was 8.1 -Accu-Cheks, ISS, hypoglycemia precautions -Hold oral hypoglycemic agents Status: Chronic (4) Chronic kidney disease, stage II (mild): -current renal function at baseline (1.3) -avoid nephrotoxins, renally dose meds Status: Chronic (5) CIDP (chronic inflammatory demyelinating polyneuropathy): -follow up at [facility] Status: Chronic (6) Morbid obesity: -large build, BMI-47 kg/m2 Status: Chronic Additional A&P Information -s/p L BKA; has prosthesis -multiple psychiatric diagnoses including PTSD -AMIRAH; CPAP qhs -asymptomatic per COVID-19 screening, so no testing done -consistent carb diet as tolerated -DVT ppx with heparin -fall precautions -Dispo: home -Code status: FULL code Attestations Medical Necessity Statement*: Robert Kapoor's hospital stay will require greater than 2 midnights for management of right upper extremity cellulitis and osteomyelitis of the right olecranon requiring IV antibiotics and close monitoring. Time Spent in Patient Care: Greater than 35 minutes (>than 50% of time spent in counselling and/or direct pt care on unit) . Coding Level of Care Code Acute Population Health Coach for g Fwd Diagnoses Osteomyelitis of arm M86.9 Olecranon bursitis M70.21 Laterality: right Hyperglycemia R73.9 Chronic kidney disease, stage II (mild) N18.2 CIDP (chronic inflammatory demyelinating polyneuropathy) G61.81 Morbid obesity E66.01
--- NOTE | 2020-01-06 05:07 | PC.NURSE ---
Wound repacked per Dr. Bell. Patient has two wounds on elbow. Both wounds are roughly same in size, one above the other. The wounds have significant tunneling. The upper wound was packed with 1in and the lower wound with 1/4in, covered with a gauge square, wrapped in kerlex and then wrapped in jose a wrap.
--- NOTE | 2020-01-06 05:35 | USR_ITS ---
PROCEDURE INFORMATION: Exam: US Right Non-Vascular Joint or Other Extremity Structure, Limited Upper Extremity Exam date and time: 01/06/2020 1:25 PM Age: 59 years old Clinical indication: Symptoms: Swelling and redness; Patient HX: Recent debridement right elbow/ packed; Additional info: R elbow swelling and possible abscess TECHNIQUE: Imaging protocol: Right US joint or other nonvascular extremity structure or structures. Real-time ultrasound with image documentation. Limited study. Exam focused on the upper extremity in the region of clinical interest. COMPARISON: US soft tissue/extremity [id number] 12/16/2019 9:55 PM FINDINGS: Soft tissues: Ultrasound of the right elbow was performed. There is diffuse soft tissue edema. No discrete mass or fluid collection is identified. There is shadowing posterior to the elbow which is compatible with air/gas artifact and probable packing material within the open wound. Other findings: The patient has an open wound with packing material. US/US soft tissue/extremity [id number] IMPRESSION: 1. No discrete mass or fluid collection is identified. No well-defined abscess. 2. There is shadowing posterior to the elbow which is compatible with air/gas artifact and probable packing material within the open wound.
[2020-01-06] MEDS: piperacillin-tazobactam 3.375 GM in sodium chloride 0.9% (plus) 50 ML IV ×2 (06:27→19:47)
--- NOTE | 2020-01-06 06:34 | PC.NURSE ---
Pt refused Heparin 5000 units, IV fluids, SCDs, and blood sugar check. Reported this to Dr. Christianson and she is aware how difficult Pt is.
--- NOTE | 2020-01-06 07:10 | PC.NURSE ---
Patient has removed the VANNA wrap that was around his elbow stating, It was causing my elbow and hand to swell more.
--- NOTE | 2020-01-06 08:03 | PC.NURSE ---
Patient refused all of his morning medications stating that he took them all at 0600 this morning that his made a special bag up for him that he did not tell anyone about because it is none of our business and that he took them all ready. Patient states that he takes that he has not slept in 3 days and wants to go to sleep now. In the same conversation patient states, I take Ritalin and I want it and a cup of coffee now or else I will be a Hyper asshole instead of just being an asshole. Decaffeinated coffee provided at this time. No orders for Ritalin for this patient. This personal lines underwriter is not sure that patient does not have some in his bag however he requests that this personal lines underwriter not look in his bag.
[2020-01-06 08:42] LABS: Anion Gap 16.2 (5-19); Blood Urea Nitrogen 20 mg/dL (6-20); Calcium 9.9 mg/dL (8.5-10.5); Carbon Dioxide 24 mmol/L (22-29); Chloride 102 mmol/L (98-107); Glucose 176 mg/dL (65-115); Osmolality Calculated 287 mOsm/kg (285-295); Potassium 4.2 mmol/L (3.5-5.1); Sodium 138 mmol/L (136-145)
--- NOTE | 2020-01-06 10:21 | PC.NURSE ---
Patient accidentally pulled his IV out and stated to this nurse, I have a couple phone calls to make and then maybe I will let you put another IV back in. Explained to the patient that there is an IV antibiotic ordered for now 10:00 am and it is important for me to start another one so we can get the medication in. Patient states, You can do it when I am done with my phone calls. Patient also has completely removed his dressing off his right elbow. The packing is still in place. Patient denies the need for pain medication at tis time. Re-wrapped patient's right elbow at this time. Dr. Perez notified on IV delay of antibiotic.
--- NOTE | 2020-01-06 11:14 | PC.NURSE ---
Tried to review Diabetic Teaching with patient at this time. Patient states, I already know what I need to about my insulin resistance.
--- NOTE | 2020-01-06 12:00 | PC.NURSE ---
Patient still continues to tell this scenario writer that he needs to wait on his IV as he needs to make more phone calls. Patient is A&Ox3. Respirations even and non-labored on room air.
--- NOTE | 2020-01-06 13:13 | PC.NURSE ---
Patient states that he is able to have the IV placed at this time. However Ultrasound is at bedside and asked that I wait until she is finished.
--- NOTE | 2020-01-06 14:00 | PC.NURSE ---
Attempted an IV x2 without success. Patient state, I am in a foul mood now because you did not get my IV. I think I better just get some sleep and we can just try again later. Explained to the patient that we really can not wait any longer he needs his IV antibiotic's. Patient agreed to allow the char house supervisor to try.
--- NOTE | 2020-01-06 14:02 | PC.NURSE ---
Attempted to give patient the Hydrocodone 5/325 that is ordered for his pain. Patient states, No Thank you that is not strong enough it will just through me into withdrawal. I guess I will jsut talk to the when I wake up from my nap and get something stronger. Hydrocodone wasted in the [facility]
--- NOTE | 2020-01-06 14:55 | PC.NURSE ---
Nursing wet pour supervisor attempted x1 to place and IV in patient. Patient states, This is ridiculous I have been stuck 11 times and you guys still can not get an IV in me. I want to go somewhere else and actually get the care I need. I want to consult with my first and she is on her way here I called here. I want to talk to the doctor and I need stronger pain medication. This television writer stated to the patient, I have only stuck you twice and I believe [place] only stuck you once. Dr. Perez notified by text in front of patient that patient wants to see him or he is leaving against medical advice. Explained to the patient that visiting hours are not until 4:00 pm. Patient states, I have special privileges from the last time I was here. I want her up here now. I want to discuss with her if I am leaving or not. I am not going to sign any papers. If I decide to walk I will walk without signing anything it is my right. This television writer and Meghan RN tired to explain to the patient that the last time he was here his had permission from another physician and he would need permission from his current physician for her to come up early. Patient states, It is only 20 minutes do you know how ayers that is going to seem in a court of law. This television writer states, I am sorry but it is for the safety of all patient's. Patient showed me his right arm where he has had IV attempts and he stated to this nurse, do you know what that is going to look like in the court of law. You guys failed to give me treatment and I bet the court will see it that way. I want my up here to bring my recording devise and then I want someone in administration other than [place] to come and talk to me. This television writer explained to the patient that the physician messaged back and he will be up to see him when he is done admitting a patient in the emergency room. Network Security Architect nutrition services worker at bedside to speak with patient.
--- NOTE | 2020-01-06 16:01 | PC.NURSE ---
Patient refused vital signs to be taken at this time.
[2020-01-06 16:22] LABS: Glucose Point of Care 151 mg/dL (70-110)
--- NOTE | 2020-01-06 18:32 | P.PN_ITS ---
Subjective Subjective: Interval history: No acute events overnight. Case discussed with on-call orthopedic surgeon. He will be seen by tomorrow. He has been Started on IV antibiotics Vanco and Zosyn. Vitals and labs have been reviewed. Vitals/I&O/Wt Last Vital Signs Temp 98.1 F 01/06/20 05:35 Pulse 79 01/06/20 09:01 Resp 18 01/06/20 05:35 BP 140/84 01/06/20 05:35 Pulse Ox 96 01/06/20 09:01 01/06/20 01/06/20 01/06/20 06:59 14:59 22:59 Intake Total 680 / 680 560 / 1240 Output Total 800 / 800 1000 / 1800 Balance -120 / -120 -440 / -560 Weight last 48 hrs Weight 181.437 kg Weight 181.437 kg Physical Exam Narrative: EXAM NARRATIVE: COMMON NORMALS: no acute distress and patient manuel sumner x3 GENERAL APPEARANCE: cooperative and comfortable NUTRITIONAL APPEARANCE: obese morbidly obese ORIENTATION/CONSCIOUSNESS: Yes awake HENMT COMMON NORMALS: normocephalic, atraumatic, hearing grossly normal bilaterally and moist oral mucous membranes HEAD & SCALP: normocephalic and atraumatic Eye COMMON NORMALS: Equal, round and reactive pupils present, EOMs intact bilaterally and conjunctivae normal CONJUNCTIVA: Yes conjunctivae normal PUPIL: Yes Equal, round and reactive pupils present Neck/C-Spine COMMON NORMALS: full ROM GENERAL: Yes normal visual inspection and Yes trachea midline OTHER: -short, thick neck Resp COMMON NORMALS: normal respiratory effort, No retractions, No use of accessory muscles and clear to auscultation bilaterally EFFORT & INSPECTION: Yes able to speak in complete sentences, Yes symmetric chest movement and No tachypneic AUSCULTATION: clear to auscultation bilaterally OTHER: -on RA Cardio COMMON NORMALS: regular rate, regular rhythm, S1 normal heart sound present, S2 normal heart sound present and No murmurs present (Cardio) RATE: regular rate RHYTHM: regular rhythm HEART SOUNDS: S1 normal heart sound present and S2 normal heart sound present GI COMMON NORMALS: Normal to inspection, nondistended, normoactive bowel sounds present, Soft to palpation and non-tender INSPECTION: Yes central obesity PALPATION: Yes Soft to palpation Extremity NARRATIVE EXTREMITY EXAM: -RUE; non-pitting edema of hand and arm, redness and warmth around elbow, incision that is packed with gauze, decreased ROM, no fluctuance -s/p L BKA, prosthetic in place GENERAL: Yes amputation Neuro COMMON NORMALS: patient oriented x3, moves all extremities, no focal motor deficits and no sensory deficits noted SENSORIUM/ORIENTATION: Yes alert Psych COMMON NORMALS: mental status grossly normal, Normal thought process present, cooperative, normal affect and speech normal SPEECH: Yes normal speech THOUGHT PROCESS: Normal thought process present Skin COMMON NORMALS: no rashes or lesions noted, no jaundice, no petechiae and no mottling GENERAL SKIN EXAM: no rashes or lesions noted Data : 01/06/20 07:55 Micro: Microbiology 01/06/20 08:00 Blood Culture - Preliminary Blood SPECIMEN COLLECTED 01/06/20 07:55 Blood Culture - Preliminary Blood SPECIMEN COLLECTED A&P Assessment and plan (1) Osteomyelitis of arm: -Noted to have right upper extremity cellulitis with olecranon osteomyelitis per CT scan. Characterized by increased right upper extremity pain, swelling, redness and decreased range of motion -Recently treated for septic olecranon bursitis status post excision of the infected bursa (11/26) and treated with a course of oral antibiotics. He was seen by infectious disease and completed a course of Keflex and doxycycline. Wound cultures were negative -Seen at the wound care clinic yesterday and had sharp debridement, packing of wound recommendation made for CT scan determine if underlying infection or abscess formation, and to rule out possible osteomyelitis. Due to continued pain, swelling, redness particularly involving the forearm patient presented to [facility] ER. Received a dose of IV clindamycin. Labs done indicate leukocytosis with a white count of 12.4, neutrophilic predominance, otherwise normal CBC, normal electrolytes, lactic acid of 2.0. -Repeat labs today including inflammatory markers -CT scan report in chart -Per conversation with ER physician at [facility] he had ready spoken with general surgery who referred him to orthopedics, orthopedics did not recommend intervention at that time. He then spoke to me and due to concern for osteomyelitis based on scan and complicated course with prior infection involving the same extremity I agreed to direct admission. -Wound dressing changes daily, will use gauze packing -Close monitoring of vital signs -Neuro vascular checks, right upper extremity elevation -May require surgical intervention if not improving, worsening and continued suspicion for osteomyelitis -order blood cx -order US to determine if drainable abscess -for now will treat with broad spectrum IV antibiotics (Vancomycin, Zosyn) Status: Acute (2) Olecranon bursitis: -as noted above -s/p excision of infected bursa and oral antibiotic course Status: Resolved Qualifiers: Laterality: right Qualified Code(s): M70.21 - Olecranon bursitis, right elbow (3) Hyperglycemia: -Secondary to diabetes, last A1c in November was 8.1 -Accu-Cheks, ISS, hypoglycemia precautions -Hold oral hypoglycemic agents Status: Chronic (4) Chronic kidney disease, stage II (mild): -current renal function at baseline (1.3) -avoid nephrotoxins, renally dose meds Status: Chronic (5) CIDP (chronic inflammatory demyelinating polyneuropathy): -follow up at [facility] Status: Chronic (6) Morbid obesity: -large build, BMI-47 kg/m2 Status: Chronic Additional A&P Information -s/p L BKA; has prosthesis -multiple psychiatric diagnoses including PTSD -AMIRAH; CPAP qhs -asymptomatic per COVID-19 screening, so no testing done -consistent carb diet as tolerated -DVT ppx with heparin -fall precautions -Dispo: home -Code status: FULL code Attestations Medical Necessity Statement*: Patient needs to be in the hospital for the management of possible osteomyelitis. Coding Level of Care Code Acute Associate Programmer Analyst for [facility] Diagnoses Osteomyelitis of arm M86.9 Olecranon bursitis M70.21 Laterality: right Hyperglycemia R73.9 Chronic kidney disease, stage II (mild) N18.2 CIDP (chronic inflammatory demyelinating polyneuropathy) G61.81 Morbid obesity E66.01
--- NOTE | 2020-01-06 18:39 | PC.NURSE ---
End of shift summary Dr. Perez gave permission for patient's to be here all the time do to patient's PTSD. Patient needs screening sheet done for am MRI tomorrow of his right elbow. There was a delay in antibiotic therapy today because we had trouble placing an IV.
[2020-01-06 21:31] LABS: Glucose Point of Care 133 mg/dL (70-110)
--- NOTE | 2020-01-06 22:00 | PC.NURSE ---
Educated pt about elevating arm to help with swelling.
--- NOTE | 2020-01-07 | PC.NURSE ---
Entered the room and pt was sitting on the edge of the bed with his arm dangling down. Re-educated the pt to elevate the arm to help decrease the swelling. Pt stated I keep sitting it on my belly , this sports writer told the pt it needs to be higher than the belly.
[2020-01-07] MEDS: HYDROcodone-acetaminophen 5-325 mg Tablet 1 TAB PO (00:39)
[2020-01-07 01:15] VITALS: BP 117/63; PULSE 73; RESP 20; TEMP 36.6; O2SAT 92
--- NOTE | 2020-01-07 03:51 | PM.EVENT ---
Event Note Event Note: Called patient requested a doctor to come and look at his right upper extremity tonight. He has swelling in his hand and forearm. Dressing to the elbow on the right is clean dry and intact. His palmar and dorsal surface of his hand is very puffy but it is not indurated, warm, significantly red. Radial pulses intact, he has brisk capillary refill of all fingers and does not have apparent pain in the hand or forearm upon my palpation. He has decreased range of motion of the elbow but from what I can gather that is not dissimilar to what it had been previously. When I walked into the room his hand was resting on a pillow but it was below his heart line. I asked him to keep his hand up on his chest to help with the elevation which might help decrease the swelling. Him and his did ask for adjustment to pain medication as well. Further they asked if the swelling could have anything to do with CIDP. I told them that in this instance the swelling appeared to be related to what was going on in his elbow particularly with the acute nature of it.
[2020-01-07 04:00] VITALS: BP 122/69; PULSE 75; RESP 16; TEMP 36.7; O2SAT 96
[2020-01-07 08:42] VITALS: BP 121/73; PULSE 76; RESP 17; TEMP 36.7; O2SAT 97
[2020-01-07 09:02] LABS: Basophils # 0.1 10^3/uL (0.0-0.1); Basophils % 1.2 %; Eosinophils # 0.3 10^3/uL (0.0-0.8); Hematocrit 46.3 % (42.0-52.0); Hemoglobin 13.9 g/dL (11.7-16.6); Lymphocytes # 1.3 10^3/uL (0.8-4.8); Lymphocytes % 15.5 %; Mean Corpuscular Hemoglobin 26.8 pg (28.0-34.0); Mean Corpuscular Volume 89.4 fL (80-94); Mean Platelet Volume 9.8 fL (7.4-10.4); Monocytes # 0.8 10^3/uL (0.2-0.9); Monocytes % 9.1 %; Neutrophils # 5.93 10^3/uL (1.8-7.7); Neutrophils % 69.8 %; Nucleated Red Blood Cells % 0 %; Platelet Count 243 10^3/cmm (130-400); Red Blood Count 5.18 10^6/uL (4.1-5.3); Red Cell Distribution Width 15.7 % (12.1-15.1); White Blood Count 8.5 10^3/uL (4.0-10.0)
[2020-01-07 09:03] LABS: Glucose Point of Care 133 mg/dL (70-110)
[2020-01-07] MEDS: piperacillin-tazobactam 3.375 GM in sodium chloride 0.9% (plus) 50 ML IV (09:27)
[2020-01-07 09:34] LABS: Anion Gap 16.4 (5-19); Blood Urea Nitrogen 21 mg/dL (6-20); C Reactive Protein 33.6 mg/L (0.0-4.9); Calcium 9.4 mg/dL (8.5-10.5); Carbon Dioxide 23 mmol/L (22-29); Chloride 104 mmol/L (98-107); Glomerular Filtration Rate 76.5 mL/min (90-130); Glucose 147 mg/dL (65-115); Osmolality Calculated 287 mOsm/kg (285-295); Potassium 4.4 mmol/L (3.5-5.1); Sodium 139 mmol/L (136-145)
[2020-01-07 10:08] LABS: Erythrocyte Sedimentation Rate 66 mm/hr (0-10)
[2020-01-07 10:54] LABS: Vancomycin Trough 29.6 ug/mL (10-15)
[2020-01-07 12:55] VITALS: BP 121/73
--- NOTE | 2020-01-07 12:55 | P.MISC_ITS ---
Miscellaneous Note Purpose of Documentation: Discussion with hospitalist provider regarding plan of care Note: The patient was admitted in the wire spooler hours on January 05 after being seen on January 04 at an outside facility. I was called by the outside facility that the patient had been seen in wound care the day prior. He was treated by Dr. Luo with sharp debridement and packing of the wound. He was also on clindamycin. He presented to the outside facility complaining of decreased motion and increasing pain. There was also a question of osteomyelitis. Reportedly, he was medically stable, and the provider at the outside facility debated admission to [facility] with direct transfer to the hospitalist team or following up with Dr. Ling during the week. Decision was made for direct admission to the hospitalist team for appropriate IV antibiotic therapy. The following day, while at the hospital, no formal consult has been placed, however, I was able to talk with Dr. Perez regarding the patient. At that time, the patient appeared stable. Once again, Dr. Perez agreed that it was appropriate to pursue IV antibiotics and depending upon result, orthopedics would be consulted as necessary. This is well documented in the admission note as well as in Dr. Perez's progress note on the first day of admission. I advised him that I would be available should he need my services. At that time, he noted that the hospitalist team would consult Dr. Ling if they felt that consultation was needed.
[2020-01-07 13:30] VITALS: BP 150/85; PULSE 74; RESP 17; TEMP 36.8; O2SAT 97
[2020-01-07 13:36] LABS: Glucose Point of Care 134 mg/dL (70-110)
--- NOTE | 2020-01-07 13:50 | PC.CHAP ---
Pastoral Care Encounter/Spiritual Assessment Type of Contact [] Declined senior clinical study manager visit [] Patient/Family/Request visit [] Outpatient visit [] Follow-up visit [] Physician referral [] Code/Alert [x] Routine visit [] Staff referral [] Actively dying [] Patient sleeping [] Family support [] [] Out of room [] Palliative care [] [] Receiving care in room [] Pre-surgical visit [] Trauma [] Long length of stay [] ICU visit [] Other: Relational/Emotional Strength [x] Patient feels connected with others/family/visitors/staff [x] Distress [] Loneliness/isolation [] Abandonment Spirituality of Patient [x] Person of Amber [x] Attends [employer]aritan of their Amber [x] Believes in Prayer [] Reads Bible or Zoroastrian materials [x] There are Spiritual issues to be addressed Satin Finisher Interventions [x] Prayer [x] Active listening [x] Non-anxious presence [x] Spiritual/emotional support [x] Crisis/trauma care [x] Spiritual counseling [] Bereavement support [] Provided bereavement packet [] Provided Bible/devotional materials [] Provided toy/stuffed animal, coloring book to patient or family member [] Provided Communion [] Anointing/[place] [] Salvation [x] Completed spiritual assessment [] Other: Impact on Illness or Injury [x] Angry [] Fearful [x] Anxious [] Often cries [x] Exhaustion [x] Unable to work [] Unable to attend roman catholic [x] Unable to walk/stand [] Unable to read [] Unable to drive [] Unable to eat/drink [] Unable to sleep [x] Unable to be with family [] Patient intubated [] Other: Summary Patient expressed a great amount of anger and frustration about the care that he has received. Upset that he has not seen the doctor that he says he was told he was supposed to see Tuesday, Tuesday and this morning. He stated that he has spoke with administrative staff and he feels nothing has improved. He received a call from the orthopedic clinic regarding his appointment tomorrow and he became even more agitated as he stated that he has been waiting to see that provider since Tuesday. Satin Finisher prayed with patient. Patient asked me to contact a member of administration to come and talk to him. Satin Finisher informed Risk Management of the situation and staff was going to the patient's room to try to help. Time spent with patient 60 minutes
--- NOTE | 2020-01-07 14:34 | PC.PHAR ---
PHARMACY TO DOSE VANCOMYCIN - Order retimed from 2200 01/05 to 0500 9 without retiming lab, causing an inflated level. this value loosely represents a peak. Will resume 2g q12h then redraw before 4th dose
[2020-01-07 15:21] LABS: Iron 27 ug/dL (59-158); Percent Saturation 8.3 % (20-50); Total Iron Binding Capacity 324 mcg/dl; Unsaturated Iron Binding 297 ug/dL (112-347)
--- NOTE | 2020-01-07 16:04 | P.CONIM_ITS ---
Providers/Reason For Consult Consulting Physican/Specialty*: Kamran Ling MD: Orthopedic surgery Reason for Consult*: Bursitis right elbow Attending Physician: Giuseppe Elaine MD Primary Care Provider: Bj Casey NP History of Present Illness History of Present Illness Robert Kapoor is a 59 year old male known to me after excision of a right olecranon bursa. He initially presented to me in the emergency room on 11/26/2019. At that time he described a hitting his elbow some 3 days early with increasing pain and swelling. He apparently was treated with cephalexin with continued swelling. He is admitted to the hospital to the medicine service Dr. Mike Acosta. He was taken to the operating room on 11/28/2019 where he underwent excision of an inflammatory appearing olecranon bursa. There was no purulence and no underlying bony involvement. He was seen by me on 12/12/2019 where his incision appeared to be well-healed. His stitches out were removed. Cultures reviewed which ultimately were negative. Patient returned to emergency room 4 days later on 12/16/2019 complaining of a slight wound dehiscence redness and and erythema over his elbow. He apparently was changed to clindamycin on that visit. Seen in my clinic some 2 days later or erythema and swelling was better and only a small area of incisional dehiscence was noted. Patient apparently began his eye care in wound clinic. Reports that after that visit he actually noted continued swelling and drainage. He was seen in [facility] on 01/05/[address] scan was obtained raising suspicions about possible osteomyelitis. He alleges that he was seen on 01/06/2020 although have no documentation of that visit. He was sent from wound clinic to the emergency room for a direct admission. He has been medicine IV antibiotics since admission and he states that after the first day of antibiotics the erythema has nearly resolved. The initial swelling into his forearm or hand which is better as a well. Meds/Allergies Home Medications and Allergies Home Medications Medication Instructions Recorded Confirmed Last Taken Type losartan 100 mg tablet 100 mg PO DAILY 06/25/19 01/06/20 01/06/20 History testosterone cypionate 200 mg/mL 200 mg IM Q14D 07/26/19 01/06/20 01/02/20 History intramuscular oil zinc 50 mg tablet 50 mg PO DAILY 07/26/19 01/06/20 01/05/20 History aspirin 325 mg tablet 325 mg PO DAILY PRN tab 11/09/19 01/06/20 01/06/20 History empagliflozin 10 mg tablet 25 mg PO DAILY 11/09/19 01/06/20 01/06/20 History furosemide 40 mg tablet 40 mg PO BID PRN tab 11/09/19 01/06/20 11/26/19 History gensing 250 mg PO DAILY 11/09/19 01/06/20 01/06/20 History magnesium 250 mg PO DAILY PRN 11/09/19 01/06/20 01/05/20 History metformin 500 mg tablet 1,000 mg PO BID tab 11/09/19 01/06/20 01/06/20 History oxycodone 30 mg tablet See Rx Instructions .ROUTE 11/09/19 01/06/20 01/06/20 History .COMPLEX PRN tab potassium 99 mg PO DAILY PRN 11/09/19 01/06/20 Unknown History probiotic with pectin 323 mg PO DAILY 11/09/19 01/06/20 01/06/20 History amlodipine 5 mg PO DAILY 11/26/19 01/06/20 01/06/20 History ascorbic acid (vitamin C) [Vitamin 1,000 mg PO DAILY 11/26/19 01/06/20 01/06/20 History C] methylphenidate HCl [Ritalin] 10 mg PO Q4H 11/26/19 01/06/20 01/06/20 History chlorhexidine gluconate [Betasept 1 applic TOPICAL DAILY #0 ml 11/28/19 01/06/20 Unknown Rx Surgical Scrub] mupirocin 2 % topical ointment 1 applic TOPICAL DAILY #22 gm 12/04/19 01/06/20 01/06/20 Rx propranolol 40 mg tablet 40 mg PO BID PRN #60 tab 01/01/20 01/06/20 Unknown Rx semaglutide [Ozempic] 0.25 mg SUBCUT Q7D 01/06/20 01/06/20 01/02/20 History sildenafil See Rx Instructions .ROUTE .COMPLEX 01/06/20 01/06/20 Unknown History Allergies Allergy/AdvReac Type Severity Reaction Status Date / Time Sulfa (Sulfonamide Allergy Intermediate Gives Verified 01/06/20 03:31 Antibiotics) bodywide yeast infection. steroids AdvReac Intermediate Affected Uncoded 12/04/19 12:45 body chemistry for about a month Current Medications Current Medications Generic Name Dose Route Start Last Admin Trade Name Rita PRN Reason Stop Dose Admin Amlodipine Besylate 5 mg 01/06/20 09:00 01/07/20 12:55 Norvasc PO Not Given DAILY PHOEBE Ascorbic Acid 1,000 mg 01/06/20 09:00 01/07/20 12:55 Vitamin C PO Not Given DAILY PHOEBE Heparin Sodium (Beef Lung) 5,000 unit 01/06/20 05:35 01/07/20 04:48 Heparin SUBCUT Not Given Q12H PHOEBE Vancomycin HCl 2,000 mg/ 500 mls @ 250 mls/hr 01/06/20 10:00 01/07/20 04:49 Sodium Chloride IV 166 mls/hr Q12H PHOEBE Administration Protocol Piperacillin Sod/Tazobactam 50 mls @ 12.5 mls/hr 01/06/20 06:00 01/07/20 15:52 Sod 3.375 gm/ Sodium Chloride IV Not Given Q8H PHOEBE Protocol Insulin Aspart 0 unit 01/06/20 08:00 01/07/20 13:55 Novolog SUBCUT Not Given WM&BEDTIME PHOEBE Protocol Losartan Potassium 100 mg 01/06/20 09:00 01/07/20 12:55 Cozaar PO Not Given DAILY PHOEBE PFSH Acute PFSH: Medical History (Updated 01/06/20 @ 05:19 by Meghan Bell MD) Attention-deficit hyperactivity disorder, combined type Chronic epididymitis Chronic kidney disease, stage II (mild) CIDP (chronic inflammatory demyelinating polyneuropathy) Reports he takes dexamethasone intermittently when symptoms flare Epididymitis History of coronary angiogram Hyperglycemia Denies diabetes, but is on medication for this. Hypertension Major depressive disorder, recurrent, in full remission Morbid obesity Narcissistic personality disorder Obstructive sleep apnea Post traumatic stress disorder Prinzmetal's angina Right groin pain Testosterone deficiency Surgical History (Updated 01/06/20 @ 05:11 by Meghan Bell MD) H/O carpal tunnel repair bilateral H/O sinus surgery deviated septum History of colonoscopy History of tonsillectomy History of total left knee replacement Status post bilateral below knee amputation Left side, reports secondary to fracture causing reduced blood supply Family History Mother , at age 85 No problems noted. Father , at age 75 Cancer skin, prostate Social History Smoking and tobacco status: former smoker Adopted: No Caregiver/support person: No Lives independently: No Household members: spouse Marital status: Current occupational status: disabled History of recent travel: No Current gender identity: Male Vitals/I&O/Wt Last Vital Signs Temp 98.3 F 01/07/20 13:30 Pulse 74 01/07/20 13:30 Resp 17 01/07/20 13:30 BP 150/85 01/07/20 13:30 Pulse Ox 97 01/07/20 13:30 01/07/20 01/07/20 01/07/20 06:59 14:59 22:59 Intake Total 200 / 2090 120 / 120 Balance 200 / 290 120 / 120 Weight last 48 hrs Weight 400 lb Weight 400 lb Physical Exam Narrative: EXAM NARRATIVE: On examination the patient's right elbow he is a larger pale up. There are 2 small 5 mm so diameter ulcerations, along the central portion of his incision. There is a piece of packing in the elbow does not seem to extend into any sinus or deep abscess which is removed. There is no fluctuance I can appreciate. There is no erythema. The patient can fully extend his elbow and flex to about 130 degrees. Data Micro: Micro: Microbiology 01/06/20 08:00 Blood Culture - Pr eliminary Blood NEGATIVE TO NOEL E 01/06/20 07:55 Blood Culture - Pr eliminary Blood NEGATIVE TO NOEL E Imaging^: Other CT: My impression: I printed a CT scan of the right elbow from [facility] dated 01/05/2020. I have compared that to a previous CT scan dated 11/26/2019. Erosion the posterior olecranon. There is a different obliquity of the radiographs but I do not see any progressive change. I certainly see no changes the trabeculations of the bone. Reactive processes of bone. There certainly is no abscesses or necrotic bone I can see on this limited study A&P Assessment and plan (1) Olecranon bursitis: This would appear to be a case of a reactive bursitis. Of course he was treated with IV antibiotics before excision and the fact that no organisms were grown could very well have been a result of antibiotic suppression. Certainly at this present time there is nothing aggressive appearing about his elbow. He may have had some cellulitis but this appears to have resolved. There is no fluctuance to benefit from drainage. There is no purulence I can express. I think the possibility of osteomyelitis and at this picture would be highly unlikely. There is certainly no progressive changes on the CT scan over the past month to suggest an aggressive process. I suspect this is coming from overuse. I have suggested that we put him in a compressive wrap in a sling. I will get him back in my office all later this week for a wound check. I would be very surprised if this does not improve with immobilization. Dr. Flores as seen the patient will assist with IV antibiotic. Status: Resolved Qualifiers: Laterality: right Qualified Code(s): M70.21 - Olecranon bursitis, right elbow Coding Level of Care Code Acute Nuclear Physics Professor for [facility] Diagnoses Olecranon bursitis M70.21 Laterality: right
[2020-01-07 16:05] LABS: Thyroid Stimulating Hormone 1.14 uIU/mL (0.27-4.20)
--- NOTE | 2020-01-07 16:09 | PM.CONSULT ---
Providers/Reason For Consult Consulting Physican/Specialty*: Rosi Flores, Infectious Disease Reason for Consult*: Olecrenon bursitis, now concern for possible osteomyelitis Requesting Physcian: Dr. Elaine Attending Physician: Giuseppe Elaine MD Primary Care Provider: Bj Casey NP History of Present Illness History of Present Illness Robert Kapoor is a 59 year old male who I have seen recently for olecrenon bursitis and then again in follow up in ID clinic. He had presented to the hospital in early november with right elbow swelling and draining. 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 He presented to ER when it started to drain white thick material. He reported no fevers. He was evaluated by the orthopedic service and then was taken to the OR where he underwent excision of the infected right olecranon bursa on 11/27/19. Per op notes from the time, patient was noted to have purulent tissue in the superficial olecranon bursa. There was also dense scarring of the bursa over an area of a few centimeter. No deep bony involvement was noted. It is possible that entire contents were inflammatory rather then truly infected in nature. Patient tolerated this procedure well and did well postoperatively. Cultures were sent both from the ER and then again from the OR. Gram stain showed a few gram-positive rods and WBCs but final cultures remained without any growth. Of note patient had been on outpatient cephalosporins for ~1week prior to admission. Presuming infectious olecranon bursitis, he was discharged on empiric antibiotic course of oral Keflex and doxycycline for 2 weeks until 12/11. He followed in the infectious disease clinic 12/03 and in the orthopedics clinic on 12/11, at which time his wound was healing well without any signs of overt infection. Abx were discontinued. He returned to ER on 12/15 with some wound breakdown and surrounding cellulitis at which time he was started on po clindamycin with improvement in symptoms. He saw ortho in f/up on 12/17 and was recommended to keep a compressive wrap on the elbow. It appears he may have been non complaint with instructions to minimize mobilization of the extremity. He had been referred to the wound care clinic from ER where he was seen on 01/03. He underwent sharp debridement, some necrtoic tissue was encountered without gross pus. He was planned to undergo a CT of this limb to r/o underlying abscess. In the [facility] he presented at [facility] on 01/05 with increased swelling and redness. CT of this arm was performed and resulted with cellulitis of the right arm with underlying osteomyelitis. He was transferred here subsequently and started on iv zosyn and vancomycin. No underlying abscess identified for drainage. His arm is improving at this present time. On visual inspection today, there are noted to be 2 small areas of wound dehiscence without any signs of surrounding cellulitis. As on his previous admission ,he remains extremely concerned that all of his symptoms are relatedto his CIDP. He is moving to [place] in a month's time to be close to his family and seek rx for CIDP at the [facility]. He has not recently received any steroids. Review of Systems General: Reports: 10 or more systems reviewed and unremarkable except in HPI and below Const: Denies: fever(s), chills or body aches Eyes: Denies: change in vision, blurry vision or photophobia ENMT: Reports: hoarseness; Denies: throat pain, enlarged tonsils, odynophagia or nasal congestion Card: Denies: chest pain, palpitations, irregular heart rhythm, edema, swelling of feet/ankles, lightheadedness, pre-syncope, dyspnea on exertion or orthopnea Resp: Denies: dyspnea, productive cough, non-productive cough, wheezing, stridor, pain on inspiration, change in phlegm color, hemoptysis or chest congestion GI: Denies: abdominal pain, nausea, vomiting, hematemesis, coffee ground emesis, dysphagia, heartburn, diarrhea, constipation, GI cramping, change in stool character, hematochezia or melena : Denies: flank pain, dysuria, urinary frequency, urinary urgency, urinary hesitancy or hematuria Musc: Denies: neck pain, back pain, extremity pain, joint swelling, joint warmth or deformity Neuro: Denies: headache(s), numbness in extremities, weakness in extremities, sensory changes, difficulty walking, frequent falls, dizziness, vertigo, behavioral changes, Slurred speech present or seizure-like activity Psych: Denies: anxiety, depression, suicidal ideation or homicidal ideation Endo: Denies: polyuria, polydipsia, tired all the time, cold intolerance or hot flashes Chidi/Lymph: Denies: easy bruising or easy bleeding Meds/Allergies Home Medications and Allergies Home Medications Medication Instructions Recorded Confirmed Last Taken Type losartan 100 mg tablet 100 mg PO DAILY 06/25/19 01/06/20 01/06/20 History testosterone cypionate 200 mg/mL 200 mg IM Q14D 07/26/19 01/06/20 01/02/20 History intramuscular oil zinc 50 mg tablet 50 mg PO DAILY 07/26/19 01/06/20 01/05/20 History aspirin 325 mg tablet 325 mg PO DAILY PRN tab 11/09/19 01/06/20 01/06/20 History empagliflozin 10 mg tablet 25 mg PO DAILY 11/09/19 01/06/20 01/06/20 History furosemide 40 mg tablet 40 mg PO BID PRN tab 11/09/19 01/06/20 11/26/19 History gensing 250 mg PO DAILY 11/09/19 01/06/20 01/06/20 History magnesium 250 mg PO DAILY PRN 11/09/19 01/06/20 01/05/20 History metformin 500 mg tablet 1,000 mg PO BID tab 11/09/19 01/06/20 01/06/20 History oxycodone 30 mg tablet See Rx Instructions .ROUTE 11/09/19 01/06/20 01/06/20 History .COMPLEX PRN tab potassium 99 mg PO DAILY PRN 11/09/19 01/06/20 Unknown History probiotic with pectin 323 mg PO DAILY 11/09/19 01/06/20 01/06/20 History amlodipine 5 mg PO DAILY 11/26/19 01/06/20 01/06/20 History ascorbic acid (vitamin C) [Vitamin 1,000 mg PO DAILY 11/26/19 01/06/20 01/06/20 History C] methylphenidate HCl [Ritalin] 10 mg PO Q4H 11/26/19 01/06/20 01/06/20 History chlorhexidine gluconate [Betasept 1 applic TOPICAL DAILY #0 ml 11/28/19 01/06/20 Unknown Rx Surgical Scrub] mupirocin 2 % topical ointment 1 applic TOPICAL DAILY #22 gm 12/04/19 01/06/20 01/06/20 Rx propranolol 40 mg tablet 40 mg PO BID PRN #60 tab 01/01/20 01/06/20 Unknown Rx Ozempic 0.25 mg SUBCUT Q7D 01/06/20 01/06/20 01/02/20 History sildenafil See Rx Instructions .ROUTE .COMPLEX 01/06/20 01/06/20 Unknown History cephalexin [Keflex] 1,000 mg PO Q12H 28 Days #112 cap 01/07/20 Unknown Rx doxycycline hyclate 100 mg PO BID 28 Days #56 cap 01/07/20 Unknown Rx Allergies Allergy/AdvReac Type Severity Reaction Status Date / Time Sulfa (Sulfonamide Allergy Intermediate Gives Verified 01/06/20 03:31 Antibiotics) bodywide yeast infection. steroids AdvReac Intermediate Affected Uncoded 12/04/19 12:45 body chemistry for about a month Current Medications Current Medications Generic Name Dose Route Start Last Admin Trade Name Freq PRN Reason Stop Dose Admin Amlodipine Besylate 5 mg 01/06/20 09:00 01/07/20 12:55 Norvasc PO Not Given DAILY [facility] Ascorbic Acid 1,000 mg 01/06/20 09:00 01/07/20 12:55 Vitamin C PO Not Given DAILY [facility] Heparin Sodium (Beef Lung) 5,000 unit 01/06/20 05:35 01/07/20 04:48 Heparin SUBCUT Not Given Q12H [facility] Vancomycin HCl 2,000 mg/ 500 mls @ 250 mls/hr 01/06/20 10:00 01/07/20 04:49 Sodium Chloride IV 166 mls/hr Q12H [facility] Administration Protocol Piperacillin Sod/Tazobactam 50 mls @ 12.5 mls/hr 01/06/20 06:00 01/07/20 15:52 Sod 3.375 gm/ Sodium Chloride IV Not Given Q8H [facility] Protocol Insulin Aspart 0 unit 01/06/20 08:00 01/07/20 13:55 Novolog SUBCUT Not Given WM&BEDTIME [facility] Protocol Losartan Potassium 100 mg 01/06/20 09:00 01/07/20 12:55 Cozaar PO Not Given DAILY [facility] PFSH Acute PFSH: Medical History Attention-deficit hyperactivity disorder, combined type Chronic epididymitis Chronic kidney disease, stage II (mild) CIDP (chronic inflammatory demyelinating polyneuropathy) Reports he takes dexamethasone intermittently when symptoms flare Epididymitis History of coronary angiogram Hyperglycemia Denies diabetes, but is on medication for this. Hypertension Major depressive disorder, recurrent, in full remission Morbid obesity Narcissistic personality disorder Obstructive sleep apnea Post traumatic stress disorder Prinzmetal's angina Right groin pain Testosterone deficiency Surgical History H/O carpal tunnel repair bilateral H/O sinus surgery deviated septum History of colonoscopy History of tonsillectomy History of total left knee replacement Status post bilateral below knee amputation Left side, reports secondary to fracture causing reduced blood supply Family History Mother , at age 85 No problems noted. Father , at age 75 Cancer skin, prostate Social History Smoking and tobacco status: former smoker Adopted: No Caregiver/support person: No Lives independently: No Household members: spouse Marital status: Current occupational status: disabled History of recent travel: No Current gender identity: Male Vitals/I&O/Wt Last Vital Signs Temp 98.3 F 01/07/20 13:30 Pulse 74 01/07/20 13:30 Resp 17 01/07/20 13:30 BP 150/85 01/07/20 13:30 Pulse Ox 97 01/07/20 13:30 01/07/20 01/07/20 01/07/20 06:59 14:59 22:59 Intake Total 200 / 2090 120 / 120 Balance 200 / 290 120 / 120 Weight last 48 hrs Weight 181.437 kg Weight 181.437 kg Physical Exam Narrative: EXAM NARRATIVE: GEN: Awake, alert and oriented, no acute distress CVS: S1S2 N RS: CTA B/L Abd: Soft, nt/nd , bs+ MATERIALS ASSISTANT: no focal neuro deficits ext: 2 small areas of wound dehiscence over his right elbow witjout signs of cellulitis. No edema or cellulitis noted over his right arm. He is noted to have some degree of sunburn over this arm which is chronic and was visible on my last encounter with him as well Data Micro: Micro: Microbiology 01/06/20 08:00 Blood Culture - Pr eliminary Blood NEGATIVE TO NOEL E 01/06/20 07:55 Blood Culture - Pr eliminary Blood NEGATIVE TO NOEL E A&P Assessment and plan (1) Olecranon bursitis: Status: Resolved Qualifiers: Laterality: right Qualified Code(s): M70.21 - Olecranon bursitis, right elbow (2) Cellulitis of right elbow: Status: Acute (3) Wound dehiscence: Status: Acute (4) CIDP (chronic inflammatory demyelinating polyneuropathy): Status: Chronic Additional A&P Information 59M with mutliple past comorbidities with olecrenon bursitis in early November, inflammatory vs presumed infectious s/p debridement on 11/26, initially healing well, then developed wound dehiscsnce and surrounding cellulitis more recently which was improving with outpatient po abx. # Olecrenon bursitis #wound dehiscence # right elbow cellulitis Had acute flare in early november, s/p debridement on 11/26, tolerated procdure well. Cx from this surgery remained negative, chief differentails were inflammatory vs infectious bursitis. Patient had been on outpatient abx priro to OR, therfroe possibility of infectious buristis could not be completely excluded and he received 2 weeks of abx post procedure until 12/11 with keflex and doxycycline which he tolerated well except for some photosensitivity. Subsequently his recovery has been complicated by development of wound dehiscence, likely as a result of non compliance with immbolization instrcutions. He has been instrcuted to wear a compressive wrap and keep arm in a sling. Secondary to skin breakdown he appears to be developing overlying cellulitis which has been treated with outpatient clindamycin. Recently at the wound care clinic sharp debridement had been perfromed, however no gross pus or infection was noted. There was suspicion for possible underlying osteomyelitis on outside imaging on 12/05. I have reviewed these scans with Dr. Ling. There is noticeable erosion the posterior olecranon, however this was present on priror imaging as well and appears to be consistent with h/o multiple injuries over this area in the past. There are no changes the trabeculations of the bone or Reactive bone formation. ESR is elevated from 35 to 66, however this could be attributable to ongoing inflammation and cellulitis. Overall given these findings and short time since surgery, there is low probability of osteomyelitis. His cellulitis , which may have present on admission is resolved at this time. Of note, he has a signifcant amount of anxiety as noticed on multiple encounters now, related to his CIDP and does believe all that is going on in his elbow to be related to CIDP despite reassurance to the contrary. For now, recommend to switch iv abx to oral Keflex and doxycycline empricially for cellulitis/SSTI, which he had tolerated well in the past. Cannot consider this to be abx failure as patient developed symptoms few days after being off both these medications. Follow orthopedics instrcutions for immobilization. I will follow him in ID clinic in one week and then at 3 weeks to f/up on serial improvement. Antcipate approx 2 weeks course on abx, however final duration remains to be decided dependent on clinical evolution. thank you for this consult Coding Level of Care Code Acute Generator Man for Hua Brewer Diagnoses Olecranon bursitis M70.21 Laterality: right Cellulitis of right elbow L03.113 Wound dehiscence T81.30XA CIDP (chronic inflammatory demyelinating polyneuropathy) G61.81
--- NOTE | 2020-01-07 16:33 | P.DS_ITS ---
Discharge Providers Date of Admission: 01/06/20 03:44 Date of Discharge: January 07, 2020 Attending Provider at Admission: Meghan Bell MD Attending Provider at Discharge: Giuseppe Elaine MD Consults: Orthopedics: Dr. Fierro ID: Dr. Flores Primary Care Provider: Bj Casey NP Diagnoses at Discharge Discharge Diagnosis (1) Olecranon bursitis: Status: Resolved Qualifiers: Laterality: right Qualified Code(s): M70.21 - Olecranon bursitis, right elbow Reason for Visit Reason for Visit: RUE pain, swelling, redness Hospital Course Discharge Summary: Robert Kapoor is a 59 year old male with PMHx noted below presents as transfer from [facility] where he presented earlier today with complaints of increased right upper extremity pain, swelling, redness. Earlier in the day he had been seen at the wound care clinic where he was noted to have what appeared to be cellulitis and had sharp debridement of the right elbow which is currently packed. He seems to be quite unhappy as he states that he has had issues with his right arm and in November was treated for septic olecranon bursitis for which he had excision of the infected bursa and was treated with a 2-week course of Keflex and doxycycline. Wound cultures at that time were negative. He had been following up with Dr. Flores at the infectious disease clinic and Dr. Ling as well. He reports repeated attempts to get into the wound care clinic and was finally seen yesterday. As per the patient his wound was cultured and packed in the wound care clinic and he was asked to stop the antibiotics. He was seen at [facility], work-up there indicates leukocytosis with a white count of 12.4 with otherwise normal CBC, normal electrolytes, BUN of 26, creatinine of 1.3 which appears to be his baseline, blood glucose of 123, lactic acid of 2.0, normal LFTs. Blood pressure was slightly elevated but he was afebrile. Imaging indicates cellulitis of the right elbow and osteomyelitis of the olecranon. Patient is admitted to the floors and was seen by orthopedics and infectious disease inpatient. As per Dr. Ling patient CT scan and physical examination was more concerning for cellulitis and osteomyelitis. During hospitalization he remained hemodynamically stable, afebrile with stable blood work. He is being discharged in stable condition on oral Keflex and doxycycline for next 4 weeks and compressive wrap in a sling with advised to follow-up in ID clinic on next Tuesday on January [address] Ling later this week. Physical Exam Narrative: EXAM NARRATIVE: COMMON NORMALS: no acute distress and patient oriented x3 GENERAL APPEARANCE: cooperative and comfortable NUTRITIONAL APPEARANCE: obese morbidly obese ORIENTATION/CONSCIOUSNESS: Yes awake HENMT COMMON NORMALS: normocephalic, atraumatic, hearing grossly normal bilaterally and moist oral mucous membranes HEAD & SCALP: normocephalic and atraumatic Eye COMMON NORMALS: Equal, round and reactive pupils present, EOMs intact bilaterally and conjunctivae normal CONJUNCTIVA: Yes conjunctivae normal PUPIL: Yes Equal, round and reactive pupils present Neck/C-Spine COMMON NORMALS: full ROM GENERAL: Yes normal visual inspection and Yes trachea midline OTHER: -short, thick neck Resp COMMON NORMALS: normal respiratory effort, No retractions, No use of accessory muscles and clear to auscultation bilaterally EFFORT & INSPECTION: Yes able to speak in complete sentences, Yes symmetric chest movement and No tachypneic AUSCULTATION: clear to auscultation bilaterally OTHER: -on RA Cardio COMMON NORMALS: regular rate, regular rhythm, S1 normal heart sound present, S2 normal heart sound present and No murmurs present (Cardio) RATE: regular rate RHYTHM: regular rhythm HEART SOUNDS: S1 normal heart sound present and S2 normal heart sound present GI COMMON NORMALS: Normal to inspection, nondistended, normoactive bowel sounds present, Soft to palpation and non-tender INSPECTION: Yes central obesity PALPATION: Yes Soft to palpation Extremity NARRATIVE EXTREMITY EXAM: -RUE; non-pitting edema of hand and arm, redness and warmth around elbow, incision that is packed with gauze, decreased ROM, no fluctuance -s/p L BKA, prosthetic in place Discharge Data Data Completed and Pending: Completed Studies During Hospitalization Category Date Time Status US soft tissue/ex tremity [id number] Rout ine Ultrasound 01/06/20 05:35 Completed Pending at discharge Category Date Time Status Blood Culture Sta t Lab 01/06/20 08:00 Results MRSA by PCR [facility] 01/07/20 13:31 Uncollected Vancomycin Trough Timed Lab 01/08/20 16:00 Ordered Labs from last 24 hours 09/14/20 09/14/20 09/14/20 13:24 08:51 08:50 WBC RBC Hgb Hct MCV MCH MCHC RDW Plt Count MPV Neut % (Auto) Lymph % (Auto) [place] % (Auto) Eos % (Auto) Baso % (Auto) Neut # (Auto) Lymph # (Auto) [place] # (Auto) Eos # (Auto) Baso # (Auto) Nucleated RBC % (a uto) Nucleated RBCs # ESR Sodium Potassium Chloride Carbon Dioxide Anion Gap BUN Creatinine GFR Calculation Glucose POC Glucose 134 133 Calculated Osmolal ity Calcium Iron TIBC % Saturation Unsat Iron Binding C-Reactive Protein 33.6 H Procalcitonin TSH Vancomycin Trough 01/07/20 01/07/20 01/07/20 08:50 08:50 08:50 WBC 8.5 RBC 5.18 Hgb 13.9 Hct 46.3 MCV 89.4 MCH 26.8 L MCHC 30.0 RDW 15.7 H Plt Count 243 MPV 9.8 Neut % (Auto) 69.8 Lymph % (Auto) 15.5 Montgomery % (Auto) 9.1 Eos % (Auto) 4.0 Baso % (Auto) 1.2 Neut # (Auto) 5.93 Lymph # (Auto) 1.3 Montgomery # (Auto) 0.8 Eos # (Auto) 0.3 Baso # (Auto) 0.1 Nucleated RBC % (a uto) 0 Nucleated RBCs # 0.0 ESR 66 H Sodium 139 Potassium 4.4 Chloride 104 Carbon Dioxide 23 Anion Gap 16.4 BUN 21 H Creatinine 1.0 GFR Calculation 76.5 L Glucose 147 H POC Glucose Calculated Osmolal ity 287 Calcium 9.4 Iron TIBC % Saturation Unsat Iron Binding C-Reactive Protein Procalcitonin TSH Vancomycin Trough 01/07/20 01/07/20 01/07/20 08:50 08:40 08:40 WBC RBC Hgb Hct MCV MCH MCHC RDW Plt Count MPV Neut % (Auto) Lymph % (Auto) [place] % (Auto) Eos % (Auto) Baso % (Auto) Neut # (Auto) Lymph # (Auto) [place] # (Auto) Eos # (Auto) Baso # (Auto) Nucleated RBC % (a uto) Nucleated RBCs # ESR Sodium Potassium Chloride Carbon Dioxide Anion Gap BUN Creatinine GFR Calculation Glucose POC Glucose Calculated Osmolal ity Calcium Iron 27 L TIBC 324 % Saturation 8.3 L Unsat Iron Binding 297 C-Reactive Protein Procalcitonin 0.10 TSH 1.14 Vancomycin Trough 29.6 H* 01/06/20 20:58 WBC RBC Hgb Hct MCV MCH MCHC RDW Plt Count MPV Neut % (Auto) Lymph % (Auto) [place] % (Auto) Eos % (Auto) Baso % (Auto) Neut # (Auto) Lymph # (Auto) [place] # (Auto) Eos # (Auto) Baso # (Auto) Nucleated RBC % (a uto) Nucleated RBCs # ESR Sodium Potassium Chloride Carbon Dioxide Anion Gap BUN Creatinine GFR Calculation Glucose POC Glucose 133 Calculated Osmolal ity Calcium Iron TIBC % Saturation Unsat Iron Binding C-Reactive Protein Procalcitonin TSH Vancomycin Trough Vitals: Last Vital Signs Temp 98.3 F 01/07/20 13:30 Pulse 74 01/07/20 13:30 Resp 17 01/07/20 13:30 BP 150/85 01/07/20 13:30 Pulse Ox 97 01/07/20 13:30 Discharge Plan Discharge Patient Disposition: Home Condition: Stable Prescriptions: New cephalexin [Keflex] 500 mg capsule 1,000 mg PO Q12H 28 Days Qty: 112 RF: 0 doxycycline hyclate 100 mg capsule 100 mg PO BID 28 Days Qty: 56 RF: 0 Continued aspirin 325 mg tablet 325 mg PO DAILY PRN (Reason: fever or pain) RF: 0 oxycodone 30 mg tablet See Rx Instructions .ROUTE .COMPLEX PRN (Reason: Pain) RF: 0 losartan 100 mg tablet 100 mg PO DAILY RF: 0 furosemide 40 mg tablet 40 mg PO BID PRN (Reason: edema) RF: 0 gensing 250 mg capsule 250 mg PO DAILY RF: 0 magnesium 250 mg 250 mg PO DAILY PRN (Reason: with lasix) RF: 0 metformin 500 mg tablet 1,000 mg PO BID RF: 0 potassium 99 mg capsule 99 mg PO DAILY PRN (Reason: w/lasix) RF: 0 probiotic with pectin 323 mg 323 mg PO DAILY RF: 0 zinc 50 mg tablet 50 mg PO DAILY RF: 0 testosterone cypionate [Depo-Testosterone] 200 mg/mL oil 200 mg IM Q14D RF: 0 Jardiance 10 mg tablet 25 mg PO DAILY RF: 0 mupirocin 2 % ointment 1 applic topical DAILY Qty: 22 RF: 0 propranolol 40 mg tablet 40 mg PO BID PRN (Reason: anxiety) Qty: 60 RF: 2 amlodipine 5 mg Tablet 5 mg PO DAILY RF: 0 ascorbic acid (vitamin C) [Vitamin C] 500 mg Tablet 1,000 mg PO DAILY RF: 0 methylphenidate HCl [Ritalin] 20 mg tablet 10 mg PO Q4H RF: 0 chlorhexidine gluconate [Betasept Surgical Scrub] 4 % Liquid 1 applic topical DAILY Qty: 0 RF: 0 Ozempic 0.25 mg or 0.5 mg(2 mg/1.5 mL) Pen Injector 0.25 mg SUBCUT Q7D RF: 0 sildenafil 50 mg tablet See Rx Instructions .ROUTE .COMPLEX RF: 0 Discharge Orders: Discharge Order (Routine); Ordered 01/07/20 Ordered By: Giuseppe Elaine Referrals: Rosi Flores MD [Hospitalist] - 01/15/20 Bj Casey NP [Primary Care Provider] - Kamran Ling MD [Physician] - 4-7 days Discharge Diet: Advance as tolerated and Usual diet Discharge Activity: Resume usual activity Discharge Attestations Time Spent in Discharge Care*: greater than 30 min Specific Discharge Activities: Specific discharge activities: educating patient, discussing with pcp/other providers, discussing with shelter case manager/social workers/dc planners, documenting/other paperwork and evaluating patient/reviewing data Status at Discharge: Cognitive status at discharge: cognitively intact , B ehavioral status at discharge: cooperative , Functional status at discharge: independent ambulation Overall status at discharge: patient is progressing back to baseline Quality Metrics Clinical Quality Measures During this hospital stay, did patient experience: None Coding Level of Care Code Acute Middle School Director for Chg Fwd Diagnoses Olecranon bursitis M70.21 Laterality: right
[2020-01-07 17:03] VITALS: BP 150/85; PULSE 74; RESP 17; TEMP 36.8; O2SAT 97
== END 2020-01-07 17:40 | disposition home or self-care (01) | DRG 558 ==
LOC: ER 03:44 → MEDSURG 03:54
PROVIDERS: Internal Medicine; Admitting Provider Family Medicine; Emergency Provider Emergency Medicine; PCP Nurse Practitioner Family; Visit Provider Student in an Organized Health Care Education/Training Program
DX: M70.21 Olecranon bursitis, right elbow (principal); L03.113 Cellulitis of right upper limb; G61.81 Chronic inflammatory demyelinating polyneuritis; Z68.42 Body mass index [BMI] 45.0-49.9, adult; T81.30XA Disruption of wound, unspecified, initial encounter; F90.2 Attention-deficit hyperactivity disorder, combined type; N45.1 Epididymitis; E11.22 Type 2 diabetes mellitus with diabetic chronic kidney disease; E11.65 Type 2 diabetes mellitus with hyperglycemia; I12.9 Hypertensive chronic kidney disease with stage 1 through stage 4 chronic kidney disease, or unspecified chronic kidney disease; N18.2 Chronic kidney disease, stage 2 (mild); F33.42 Major depressive disorder, recurrent, in full remission; E66.01 Morbid (severe) obesity due to excess calories; F60.81 Narcissistic personality disorder; G47.33 Obstructive sleep apnea (adult) (pediatric); F43.10 Post-traumatic stress disorder, unspecified; Z87.891 Personal history of nicotine dependence; Z89.512 Acquired absence of left leg below knee; Z89.511 Acquired absence of right leg below knee; Z79.84 Long term (current) use of oral hypoglycemic drugs; E29.1 Testicular hypofunction
CPT/HCPCS: 11042; 12345; 36415; 36416; 76882; 80048; 80202; 82962; 83540; 83550; 84145; 84443; 85025; 85651; 86140; 87040; 99282; G0463; J2543; J3370; J7040; L2999

== ENCOUNTER 2020-01-11 13:06 | Outpatient (CLI) | payer MEDICARE, SELFPAY ==
--- NOTE | 2020-01-11 13:09 | CTR_ITS ---
PROCEDURE INFORMATION: Exam: CT Right Upper Extremity Without Contrast, Elbow Exam date and time: 01/11/2020 1:13 PM Age: 59 years old Clinical indication: Prior surgery; Surgery type: Debriment; Patient HX: Continued right elbow pain; Additional info: Osteomyelitis R elbow TECHNIQUE: Imaging protocol: CT of the Right upper extremity without contrast was performed. Exam focused on the elbow. Radiation optimization: All CT scans at this facility use at least one of these dose optimization techniques: automated exposure control; mA and/or kV adjustment per patient size (includes targeted exams where dose is matched to clinical indication); or iterative reconstruction. COMPARISON: CT elbow RT w con [id number] 01/05/2020 6:53 PM RADIATION DOSE METRICS: Total DLP (mGy-cm): 626.69 FINDINGS: Bones/joints: There is a erosion of the distal cortex of the olecranon. This was present on the prior scan the extent of bone erosion has not significantly changed from prior scan. Soft tissues: There is extensive persistent abnormal soft tissue in the subcutaneous fat adjacent to the olecranon. This is within the olecranon bursa. There are areas of calcification within this soft tissue also seen on the prior scan. There is overlying skin thickening. Inflammatory stranding is present in the adjacent fat. The extent of soft tissue swelling in this location is decreased compared with the prior scan. There are small foci of gas within the soft tissue at this site consistent with the history of debridement. CT/CT elbow RT wo con* [id number] IMPRESSION: Abnormal soft tissue with calcifications in the olecranon bursa with erosion of the adjacent cortex. The extent of soft tissue swelling is markedly decreased from the prior scan. Small foci of gas are consistent with the stated history of debridement. 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 There may be superimposed infection with osteomyelitis as the history specifically states osteomyelitis. Radiation Dose CTDIVOL = (mGy): DLP = 626.69 (mGy-cm)
== END 2020-01-11 13:07 | disposition home or self-care (01) ==
LOC: RAD 13:08
PROVIDERS: PCP Nurse Practitioner Family; Visit Provider Nurse Practitioner Family
DX: M86.9 Osteomyelitis, unspecified (principal); M25.521 Pain in right elbow; M71.4 Calcium deposit in bursa; M85.88 Other specified disorders of bone density and structure, other site
CPT/HCPCS: 73200